=== PATIENT | male | born 1950 | race Caucasian/White ===

== ENCOUNTER 2017-12-06 09:04 | Outpatient (CLI) | payer OTHER, SELFPAY ==
[2017-12-06 11:39] LABS: Hemoglobin A1C 7.2 % (4.5-6.2)
== END 2017-12-06 09:24 ==
PROVIDERS: PCP Family Medicine; Visit Provider Family Medicine
DX: E11.39 Type 2 diabetes mellitus with other diabetic ophthalmic complication (principal)
CPT/HCPCS: 36415; 83036

== ENCOUNTER 2018-01-16 18:23 | Emergency (ER) | payer OTHER, SELFPAY ==
[2018-01-16 18:42] VITALS: BP 172/78; PULSE 63; RESP 12; TEMP 36.9; O2SAT 96
[2018-01-16] MEDS: Acetaminophen 500 MG TAB 1000 MG PO (19:34)
--- NOTE | 2018-01-16 19:45 | DI.RAD_ITS ---
SYMPTOMS/DIAGNOSIS: KNEE PAIN, NO KNOWN INJURY, ? TWISTING INJURY LEFT KNEE: Four views were obtained. There appears to be knee joint effusion. No evidence of acute fracture.
--- NOTE | 2018-01-16 20:09 | DI.VRAD_ITS ---
EXAM: XR Left Knee, 3 Views EXAM DATE/TIME: 01/16/2018 7:20 PM CLINICAL HISTORY: 67 years old, male; Pain; Knee; Left; Patient HX: Left knee pain x1 week. No known injury. Patient ? twisting injury. No surgery TECHNIQUE: XR Left knee 3 views. COMPARISON: No relevant prior studies available. FINDINGS: Bones/joints: Trace suprapatellar effusion. Soft tissues: Grossly unremarkable. Vasculature: Vascular arterial calcifications. IMPRESSION: No fractures or dislocations. Dictated and Authenticated by: Remberto Hernández MD. Ordering:EVANGELINA LYON MD
[2018-01-16 20:46] LABS: D-Dimer 542 ng/mlFEU (<500)
--- NOTE | 2018-01-16 20:58 | W.ED.GENAD ---
Discharge Plan Disposition Patient Disposition: HOME Condition: Stable Discharge Details Chief Complaint: Orthopedic Clinical Impression: Knee pain, left Primary Care Provider: Robert Macias ED Provider: Cholo Troncoso Home Meds and New Rx's Prescriptions: Continue lisinopril 5 mg tablet 5 mg PO DAILY Qty: 90 RF: 4 pantoprazole 40 mg tablet,delayed release (DR/EC) 40 mg PO DAILY Qty: 30 RF: 3 glipizide [Glucotrol] 5 mg tablet 2.5 mg PO TID Qty: 135 RF: 4 pen needle, diabetic 31 gauge x 1/3 needle 1 ea Miscellaneous DAILY Qty: 1 RF: 5 pneumoc 13-augusto conj-dip cr(PF) [Prevnar 13 (PF)] 0.5 mL syringe 0.5 ml IM ONCE Qty: 0.5 RF: 0 lancets 1 EACH misc 1 ea Sub-Q BID Qty: 100 RF: 5 insulin glargine [Lantus Solostar U-100 Insulin] 100 UNIT/1 ML insulin pen 16 unit SQ DAILY Qty: 1 RF: 5 ONETOUCH ULTRA TEST STRIPS 1 EACH strip 1 ea Miscellaneous QID Qty: 200 RF: 4 Discharge Instructions Instructions: Knee Pain (ED), RICE Therapy (ED) Additional Instructions: You may continue to use efuc-fdk-vfxdvoi acetaminophen 500 mg 1-2 tabs every 6-8 hours as needed for pain. You may also utilize arwm-azi-nqkkrgd lidocaine or capsaicin cream just take as directed on packaging. Please rest over the next 3 days then slowly advance activity as tolerated. If not improving over the next week please follow-up with orthopedics for reassessment. Referrals: Flako Dewey MD [ [facility] STAFF PHYSICIAN] - (as needed for follow in 1 week if not improving) Discharge Data Discharge Date/Time-TO BE ENTERED AT DEPARTURE: 01/16/18 21:33 Medical Decision Making Patient presenting to the emergency department with chief complaint of left knee pain. Patient denies any specific injury or trauma but does state that he does bend down on his knees a lot for work and also has been preparing some wood. He does state that 2 or 3 days ago he applied an Silvestre wrap and took some Motrin which seemed to help with his discomfort. He states that pain is diffusely throughout the knee but more specific or intense to the posterior knee with some radiation up into the thigh. Physical exam shows somewhat diffuse tenderness throughout the leg with more specific tenderness to the posterior fossa and some tenderness to the proximal to mid upper thigh on the medial aspect. Otherwise no specific findings are noted. Suspect more arthritic type nature but given radiation of pain up into the thigh plan to check d-dimer given low suspicion of DVT and also plan to check x-ray imaging. Pending results patient given acetaminophen. Review of x-ray shows no acute fracture dislocation does reveal small amount of effusion. D-dimer is appropriate for age adjustment and given low suspicion of DVT and more musculoskeletal concern do not feel that any further testing is warranted. Patient given hinged knee brace and was able to ambulate through the department and states greater stability on the knee. Patient was encouraged to continue to use dlxx-fae-elxlitg acetaminophen for pain control and if not improving after resting the extremity over the next couple weeks to follow-up with orthopedist for reassessment and further treatment as needed. Patient clearly states understanding to return for any new or worsening conditions. After discussion of diagnosis and plan of care patient has no further needs, questions, or concerns and states clear understanding to return to the emergency department for any worsening symptoms. HPI General Mode of arrival: ambulatory. Date/Time Provider Initiated Documentation: 01/16/18 18:48. Limitations to Documentation: no limitations. Information obtained by: patient, family and RN notes reviewed. History of Present Illness 67 year old M presents to the emergency department with the chief complaint of Left knee pain , described as severe, with intensity rated at 8. Quality is described as aching and sharp, and is localized to the left and lower extremity. Patient proximal. Patient started experiencing this week(s) (1) and it has been constant. Rest improves symptom(s), Movement worsens symptoms . Patient notes no other symptoms.. Patient did receive the following treatments prior to arrival, NSAID Related Data Home Medications Medication Instructions Recorded Confirmed lancets #100 ea 06/11/13 01/16/18 insulin glargine [Lantus Solostar 16 unit SQ DAILY #1 box 05/27/17 01/16/18 U-100 Insulin] glipizide 5 mg tablet 2.5 mg PO TID #135 tab 12/06/17 01/16/18 lisinopril 5 mg tablet 5 mg PO DAILY #90 tab-cap 12/06/17 01/16/18 pantoprazole 40 mg tablet,delayed 40 mg PO DAILY #30 tab 12/06/17 01/16/18 release pen needle, diabetic 31 gauge x #1 box 12/06/17 01/16/18 1/3 pneumococcal 13-augusto conj 0.5 ml IM ONCE #0.5 ml 12/06/17 12/06/17 vaccine-dip crm (PF) 0.5 mL IM syringe Previous Rx's Medication Instructions Recorded insulin glargine [Lantus Solostar 16 unit SQ DAILY #1 box 05/27/17 U-100 Insulin] glipizide 5 mg tablet 2.5 mg PO TID #135 tab 12/06/17 lisinopril 5 mg tablet 5 mg PO DAILY #90 tab-cap 12/06/17 pantoprazole 40 mg tablet,delayed 40 mg PO DAILY #30 tab 12/06/17 release pen needle, diabetic 31 gauge x #1 box 12/06/17 13 pneumococcal 13-augusto conj 0.5 ml IM ONCE #0.5 ml 12/06/17 vaccine-dip crm (PF) 0.5 mL IM syringe Allergies Allergy/AdvReac Type Severity Reaction Status Date / Time Ueircnk-Tmt-Lsu Reductase AdvReac Severe myalgias Unverified 01/16/18 18:46 Inhibitor General Stated Complaint: Orthopedic APRIL: 5 Review of Systems Constitutional Denies chills, Denies fever(s) and Denies headache(s) ENT Denies headache(s) Cardiovascular Denies chest pain, Denies irregular heart rhythm, Denies leg edema, Denies lightheadedness and Denies dyspnea Respiratory Denies dyspnea Gastrointestinal Denies abdominal pain Musculoskeletal Reports as per HPI, Reports myalgias and Reports arthralgias Neurologic Reports confusion and Denies headache(s) Psychiatric Reports confusion PFSH Family History Mother RA (rheumatoid arthritis) CHF (congestive heart failure) Depression Heart disease Father Alcohol abuse Psoriasis Brother Diabetes Alcohol abuse Hyperlipidemia Myocardial infarction Neoplasm Extraction of cataract PROCEDURES Family History Mother RA (rheumatoid arthritis) CHF (congestive heart failure) Depression Heart disease Father Alcohol abuse Psoriasis Brother Diabetes Alcohol abuse Hyperlipidemia Myocardial infarction Neoplasm Social History current occupational status: employed 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 pets and animals: No frequency: 1-2 times per week duration: < 15 minutes/day Smoking/Tobacco Use Status: Never alcohol intake: current alcohol intake frequency: a few times a week substance use type: does not use demetrice/latter-day: Latter Day special demetrice needs: No Surgical History Extraction of cataract PROCEDURES Social History current occupational status: employed 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 [employer] pets and animals: No frequency: 1-2 times per week duration: < 15 minutes/day Smoking/Tobacco Use Status: Never alcohol intake: current alcohol intake frequency: a few times a week substance use type: does not use demetrice/latter-day: Latter Day special demetrice needs: No Exam Const General: cooperative, healthy appearing, comfortable and no acute distress Orientation: alert, awake and oriented x3 Resp Effort & Inspection: normal respiratory effort and able to speak in complete sentences Auscultation: clear to auscultation bilaterally Cardio Rate: regular rate Rhythm: regular rhythm Heart Sounds: S1 normal and S2 normal Pulses: normal peripheral pulses Neuro General: alert, awake, oriented x3, moves all extremities and no focal motor deficits Extrem Left lower extremity: hip/thigh Details: tenderness Location: of the mid upper leg Location: posteriorly and normal ROM and knee Details: tenderness Location: of the popliteal fossa and of the medial joint line, swelling Location: of the pre-patellar area, abnormal ROM Details: pain with active ROM and knee ligament exam abnormal Details: valgus stress test Details: pain noted and varus stress test Details: pain noted Course Vital Signs Temperature 36.9 C 01/16/18 18:42 Pulse 63 01/16/18 18:42 Respiratory Rate 12 01/16/18 18:42 Blood Pressure 172/78 H 01/16/18 18:42 Pulse Oximetry 96 01/16/18 18:42 Temperature 36.9 C 01/16/18 18:42 Temperature Source Temporal Artery Scan 01/16/18 18:42 Pulse 63 01/16/18 18:42 Respiratory Rate 12 01/16/18 18:42 Respiratory Effort Non-Labored 01/16/18 18:44 Blood Pressure 172/78 H 01/16/18 18:42 Blood Pressure Position Sitting 01/16/18 18:42 Pulse Oximetry 96 01/16/18 18:42 Oxygen Delivery Method Room Air 01/16/18 18:42 Oxygen Flow Rate 0 01/16/18 18:42 Pain Level 9 01/16/18 18:42 Lab/Test Results Lab/Test Results: Laboratory Tests Range/Units 01/16/18 20:00 D-Dimer (<500) ng/mlFEU 542 H
--- NOTE | 2018-01-16 21:02 | ED.GENADUL_ITS ---
Discharge Plan Disposition Patient Disposition: HOME Condition: Stable Discharge Details Chief Complaint: Orthopedic Clinical Impression: Knee pain, left Primary Care Provider: Robert Macias ED Provider: Cholo Troncoso Home Meds and New Rx's Prescriptions: Continue lisinopril 5 mg tablet 5 mg PO DAILY Qty: 90 RF: 4 pantoprazole 40 mg tablet,delayed release (DR/EC) 40 mg PO DAILY Qty: 30 RF: 3 glipizide [Glucotrol] 5 mg tablet 2.5 mg PO TID Qty: 135 RF: 4 pen needle, diabetic 31 gauge x 1/3 needle 1 ea Miscellaneous DAILY Qty: 1 RF: 5 pneumoc 13-augusto conj-dip cr(PF) [Prevnar 13 (PF)] 0.5 mL syringe 0.5 ml IM ONCE Qty: 0.5 RF: 0 lancets 1 EACH misc 1 ea Sub-Q BID Qty: 100 RF: 5 insulin glargine [Lantus Solostar U-100 Insulin] 100 UNIT/1 ML insulin pen 16 unit SQ DAILY Qty: 1 RF: 5 ONETOUCH ULTRA TEST STRIPS 1 EACH strip 1 ea Miscellaneous QID Qty: 200 RF: 4 Discharge Instructions Instructions: Knee Pain (ED), RICE Therapy (ED) Additional Instructions: You may continue to use epim-cbg-bsvaqyi acetaminophen 500 mg 1-2 tabs every 6- 8 hours as needed for pain. You may also utilize uvkq-cbi-twkccsm lidocaine or capsaicin cream just take as directed on packaging. Please rest over the next 3 days then slowly advance activity as tolerated. If not improving over the next week please follow-up with orthopedics for reassessment. Referrals: Flako Dewey MD [ [facility] STAFF PHYSICIAN] - (as needed for follow in 1 week if not improving) Discharge Data Discharge Date/Time-TO BE ENTERED AT DEPARTURE: 01/16/18 21:33 Medical Decision Making Patient presenting to the emergency department with chief complaint of left knee pain. Patient denies any specific injury or trauma but does state that he does bend down on his knees a lot for work and also has been preparing some wood. He does state that 2 or 3 days ago he applied an Silvestre wrap and took some Motrin which seemed to help with his discomfort. He states that pain is diffusely throughout the knee but more specific or intense to the posterior knee with some radiation up into the thigh. Physical exam shows somewhat diffuse tenderness throughout the leg with more specific tenderness to the posterior fossa and some tenderness to the proximal to mid upper thigh on the medial aspect. Otherwise no specific findings are noted. Suspect more arthritic type nature but given radiation of pain up into the thigh plan to check d-dimer given low suspicion of DVT and also plan to check x-ray imaging. Pending results patient given acetaminophen. Review of x-ray shows no acute fracture dislocation does reveal small amount of effusion. D-dimer is appropriate for age adjustment and given low suspicion of DVT and more musculoskeletal concern do not feel that any further testing is warranted. Patient given hinged knee brace and was able to ambulate through the department and states greater stability on the knee. Patient was encouraged to continue to use gmyl-iev-gdalmqp acetaminophen for pain control and if not improving after resting the extremity over the next couple weeks to follow-up with orthopedist for reassessment and further treatment as needed. Patient clearly states understanding to return for any new or worsening conditions. After discussion of diagnosis and plan of care patient has no further needs, questions, or concerns and states clear understanding to return to the emergency department for any worsening symptoms. HPI General Mode of arrival: ambulatory . Date/Time Provider Initiated Documentation: 01/16/18 18:48 . Limitations to Documentation: no limitations . Information obtained by: patient, family and RN notes reviewed . History of Present Illness 67 year old M presents to the emergency department with the chief complaint of Left knee pain , described as severe, with intensity rated at 8. Quality is described as aching and sharp, and is localized to the left and lower extremity. Patient proximal. Patient started experiencing this week(s) (1) and it has been constant. Rest improves symptom(s), Movement worsens symptoms . Patient notes no other symptoms.. Patient did receive the following treatments prior to arrival, NSAID Related Data Home Medications Medication Instructions Recorded Confirmed lancets #100 ea 06/11/13 01/16/18 insulin glargine [Lantus Solostar 16 unit SQ DAILY #1 box 05/27/17 01/16/18 U-100 Insulin] glipizide 5 mg tablet 2.5 mg PO TID #135 tab 12/06/17 01/16/18 lisinopril 5 mg tablet 5 mg PO DAILY #90 tab-cap 12/06/17 01/16/18 pantoprazole 40 mg tablet,delayed 40 mg PO DAILY #30 tab 12/06/17 01/16/18 release pen needle, diabetic 31 gauge x #1 box 12/06/17 01/16/18 1/3 pneumococcal 13-augusto conj 0.5 ml IM ONCE #0.5 ml 12/06/17 12/06/17 vaccine-dip crm (PF) 0.5 mL IM syringe Previous Rx's Medication Instructions Recorded insulin glargine [Lantus Solostar 16 unit SQ DAILY #1 box 05/27/17 U-100 Insulin] glipizide 5 mg tablet 2.5 mg PO TID #135 tab 12/06/17 lisinopril 5 mg tablet 5 mg PO DAILY #90 tab-cap 12/06/17 pantoprazole 40 mg tablet,delayed 40 mg PO DAILY #30 tab 12/06/17 release pen needle, diabetic 31 gauge x #1 box 12/06/17 13 pneumococcal 13-augusto conj 0.5 ml IM ONCE #0.5 ml 12/06/17 vaccine-dip crm (PF) 0.5 mL IM syringe Allergies Allergy/AdvReac Type Severity Reaction Status Date / Time Phwnxuj-Lwx-Lia Reductase AdvReac Severe myalgias Unverified 01/16/18 18:46 Inhibitor General Stated Complaint: Orthopedic APRIL: 5 Review of Systems Constitutional Denies chills, Denies fever(s) and Denies headache(s) ENT Denies headache(s) Cardiovascular Denies chest pain, Denies irregular heart rhythm, Denies leg edema, Denies lightheadedness and Denies dyspnea Respiratory Denies dyspnea Gastrointestinal Denies abdominal pain Musculoskeletal Reports as per HPI, Reports myalgias and Reports arthralgias Neurologic Reports confusion and Denies headache(s) Psychiatric Reports confusion PFSH Family History Mother RA (rheumatoid arthritis) CHF (congestive heart failure) Depression Heart disease Father Alcohol abuse Psoriasis Brother Diabetes Alcohol abuse Hyperlipidemia Myocardial infarction Neoplasm Extraction of cataract PROCEDURES Family History Mother RA (rheumatoid arthritis) CHF (congestive heart failure) Depression Heart disease Father Alcohol abuse Psoriasis Brother Diabetes Alcohol abuse Hyperlipidemia Myocardial infarction Neoplasm Social History current occupational status: employed 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 pets and animals: No frequency: 1-2 times per week duration: < 15 minutes/day Smoking/Tobacco Use Status: Never alcohol intake: current alcohol intake frequency: a few times a week substance use type: does not use demetrice/spiritism: Religion special demetrice needs: No Surgical History Extraction of cataract PROCEDURES Social History current occupational status: employed 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 pets and animals: No frequency: 1-2 times per week duration: < 15 minutes/day Smoking/Tobacco Use Status: Never alcohol intake: current alcohol intake frequency: a few times a week substance use type: does not use demetrice/spiritism: Religion special demetrice needs: No Exam Const General: cooperative, healthy appearing, comfortable and no acute distress Orientation: alert, awake and oriented x3 Resp Effort & Inspection: normal respiratory effort and able to speak in complete sentences Auscultation: clear to auscultation bilaterally Cardio Rate: regular rate Rhythm: regular rhythm Heart Sounds: S1 normal and S2 normal Pulses: normal peripheral pulses Neuro General: alert, awake, oriented x3, moves all extremities and no focal motor deficits Extrem Left lower extremity: hip/thigh Details: tenderness Location: of the mid upper leg Location: posteriorly and normal ROM and knee Details: tenderness Location: of the popliteal fossa and of the medial joint line, swelling Location: of the pre-patellar area, abnormal ROM Details: pain with active ROM and knee ligament exam abnormal Details: valgus stress test Details: pain noted and varus stress test Details: pain noted Course Vital Signs Temperature 36.9 C 01/16/18 18:42 Pulse 63 01/16/18 18:42 Respiratory Rate 12 01/16/18 18:42 Blood Pressure 172/78 H 01/16/18 18:42 Pulse Oximetry 96 01/16/18 18:42 Temperature 36.9 C 01/16/18 18:42 Temperature Source Temporal Artery Scan 01/16/18 18:42 Pulse 63 01/16/18 18:42 Respiratory Rate 12 01/16/18 18:42 Respiratory Effort Non-Labored 01/16/18 18:44 Blood Pressure 172/78 H 01/16/18 18:42 Blood Pressure Position Sitting 01/16/18 18:42 Pulse Oximetry 96 01/16/18 18:42 Oxygen Delivery Method Room Air 01/16/18 18:42 Oxygen Flow Rate 0 01/16/18 18:42 Pain Level 9 01/16/18 18:42 Lab/Test Results Lab/Test Results: Laboratory Tests Range/Units 01/16/18 20:00 D-Dimer (<500) ng/mlFEU 542 H
[2018-01-16 22:41] VITALS: BP 172/78; PULSE 63; RESP 12; TEMP 36.9; O2SAT 96
== END 2018-01-16 21:33 | disposition home or self-care (01) ==
PROVIDERS: Emergency Provider Nurse Practitioner Family; PCP Family Medicine
DX: M25.562 Pain in left knee (principal); E11.9 Type 2 diabetes mellitus without complications; Z79.4 Long term (current) use of insulin
CPT/HCPCS: 36415; 73562; 99284; 85379; 99282; L1820

== ENCOUNTER → 2018-01-22 09:09 | Outpatient (BNVA) | payer OTHER, SELFPAY | PROVIDERS: PCP Family Medicine; Referring Provider Family Medicine; Visit Provider Student in an Organized Health Care Education/Training Program | DX: M10.9 Gout, unspecified (principal); M25.562 Pain in left knee | CPT/HCPCS: 20610; 99204; 99214; J1040 ==

== ENCOUNTER 2018-01-22 11:49 | Outpatient (REF) | payer OTHER, SELFPAY ==
[2018-01-22 12:39] LABS: Source L KNEE
[2018-01-22 12:40] LABS: Clarity CLOUDY; Mononuclear Cells 19 % (0-0); Polynuclear Cells 81 % (0-0)
[2018-01-22 12:42] LABS: Nucleated Cells 7372 /MM3 (0-0)
== END 2018-01-22 12:09 ==
LOC: LBN 11:49
PROVIDERS: PCP Family Medicine; Visit Provider Physician Assistant
DX: M25.462 Effusion, left knee (principal)
CPT/HCPCS: 87070; 87205; 89051; 89060

== ENCOUNTER 2018-06-10 08:54 | Outpatient (CLI) | payer OTHER, SELFPAY ==
[2018-06-10 11:57] LABS: BUN 17 mg/dL (7-18); CREATININE 1.79 mg/dL (0.70-1.30); Calcium 10.2 mg/dL (8.5-10.1); Chloride 100 mmol/L (98-107); Estimated GFR 38.07 (mL/min/1.73m2); Glucose 183 mg/dL (70-100); Potassium 4.3 mmol/L (3.5-5.1); Sodium 138 mmol/L (136-145)
[2018-06-10 12:39] LABS: Hemoglobin A1C 6.9 % (4.5-6.2)
== END 2018-06-10 09:14 ==
PROVIDERS: PCP Family Medicine; Visit Provider Family Medicine
DX: I10 Essential (primary) hypertension (principal); E11.39 Type 2 diabetes mellitus with other diabetic ophthalmic complication
CPT/HCPCS: 36415; 80048; 83036

== ENCOUNTER 2018-08-05 01:53 | Outpatient (CLI) | payer OTHER, SELFPAY ==
[2018-08-05 12:13] LABS: Hemoglobin A1C 7.1 % (4.5-6.2)
== END 2018-08-05 02:13 ==
PROVIDERS: PCP Family Medicine; Visit Provider Family Medicine
DX: E11.39 Type 2 diabetes mellitus with other diabetic ophthalmic complication (principal)
CPT/HCPCS: 36415; 83036

== ENCOUNTER 2019-03-10 01:05 | Outpatient (CLI) | payer OTHER, SELFPAY ==
--- NOTE | 2019-03-10 15:35 | DI.US_ITS ---
EXAM: US CAROTID CLINICAL HISTORY: Sudden weakness left ,G45.9, TIA TECHNIQUE: Ultrasound performed using standard protocol. COMPARISON: CAROTID ULTRASOUND from 09/20/2014 FINDINGS: Right: There is mild calcific plaque seen in the right carotid bulb and the proximal right internal carotid artery. No hemodynamically significant velocity elevations are present. The right vertebral artery is antegrade. Left: No significant calcific plaque is seen. No hemodynamically significant velocity elevations are prese nt. Left vertebral artery is antegrade. IMPRESSION: No hemodynamically significant cervical carotid artery stenosis.
== END 2019-03-10 01:25 ==
PROVIDERS: PCP Family Medicine; Visit Provider Family Medicine
DX: G45.9 Transient cerebral ischemic attack, unspecified (principal)
CPT/HCPCS: 93880

== ENCOUNTER 2019-03-19 01:24 | Outpatient (CLI) | payer OTHER, SELFPAY ==
--- NOTE | 2019-03-19 15:16 | DI.CT_ITS ---
EXAM: CT HEAD WO CLINICAL HISTORY: Sudden onset weakness left leg R29.898 TECHNIQUE: COMPARISON: No exams were available for comparison FINDINGS: Noncontrast cranial CT was performed. There is mild generalized cerebral atrophy and there are mild patchy areas of decreased attenuation in periventricular white matter consistent with microvascular i schemic change. 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 No evidence of acute intracrani al hemorrhage, mass effect, or midline shift. The orbital and temporal bone structures appear intact. Visualized paranasal sinuses and mastoid air cells are clear. IMPRESSION: No evidence of acute intracranial process.
== END 2019-03-19 01:44 ==
PROVIDERS: PCP Family Medicine; Visit Provider Family Medicine
DX: R29.898 Other symptoms and signs involving the musculoskeletal system (principal); G31.89 Other specified degenerative diseases of nervous system
CPT/HCPCS: 70450

== ENCOUNTER → 2019-06-16 09:25 | Outpatient (BNVA) | payer OTHER, SELFPAY | PROVIDERS: PCP Family Medicine; Referring Provider Family Medicine; Visit Provider Psychiatry & Neurology Neurology | DX: I63.9 Cerebral infarction, unspecified (principal); R26.89 Other abnormalities of gait and mobility; I10 Essential (primary) hypertension; E11.311 Type 2 diabetes mellitus with unspecified diabetic retinopathy with macular edema; Z79.4 Long term (current) use of insulin | CPT/HCPCS: 99204; 99443 ==

== ENCOUNTER 2019-08-24 02:25 | Outpatient (CLI) | payer OTHER, SELFPAY ==
[2019-08-24 12:57] LABS: Anion Gap 7.6 mmol/L (3-11); BUN 28 mg/dL (7-18); CO2 27.4 mmol/L (21.0-32.0); CREATININE 2.65 mg/dL (0.70-1.30); Calcium 10.4 mg/dL (8.5-10.1); Calculated LDL 159 mg/dL (<100); Chloride 103 mmol/L (98-107); Cholesterol 250 mg/dL (<200); Estimated GFR 24.13 (mL/min/1.73m2); Glucose 238 mg/dL (74-106); HDL Cholesterol 37 mg/dL (40-60); Potassium 4.8 mmol/L (3.5-5.1); Sodium 138 mmol/L (136-145); Triglyceride 274 mg/dL (<150)
== END 2019-08-24 02:45 ==
PROVIDERS: PCP Family Medicine; Visit Provider Family Medicine
DX: E11.3213 Type 2 diabetes mellitus with mild nonproliferative diabetic retinopathy with macular edema, bilateral (principal); I10 Essential (primary) hypertension; Z79.4 Long term (current) use of insulin; R68.89 Other general symptoms and signs
CPT/HCPCS: 36415; 80048; 80061; 83036; 84443

== ENCOUNTER 2019-10-30 03:48 | Outpatient (CLI) | payer OTHER, SELFPAY ==
[2019-10-30 12:06] LABS: Abs Immature Grans 0.26 10^3/uL (0.0-0.06); Absolute Basophil Count 0.03 10^3/uL (0.0-0.2); Absolute Eosinophil Count 0.02 10^3/uL (0.0-0.7); Absolute Lymphocyte Count 2.47 10^3/uL (1.2-3.4); Basophils % 0.3; Eosinophils % 0.2; HCT 37.3 % (40.0-50.0); HGB 12.8 g/dL (13.5-17.5); Immature Grans % 2.4; Lymphocytes % 22.6; MCH 31.2 pg (27.0-33.0); MCHC 34.3 % (32.0-36.0); MPV 9.5 fL (8.0-11.0); Monocytes % 7.9; Neutrophils % 66.6; Nucleated RBC 0 %; Platelet Count 207 10^3/uL (130-400); RDW 13.9 % (11.8-14.1); RDW-SD 46.5 fL; WBC 10.95 10^3/uL (4.4-10.8)
[2019-10-30 12:07] LABS: Absolute Monocyte Count 0.87 10^3/uL (0.1-0.8); Absolute Neutrophil Count 7.29 10^3/uL (1.2-6.7)
[2019-10-30 12:29] LABS: Hemoglobin A1C 7.5 % (<5.7)
[2019-10-30 12:41] LABS: COMMENT (LAB VIEW ONLY) 111.29 mg/dL; Microalb ug/mg Crea 8.4 ug/mg Cr
[2019-10-30 12:51] LABS: ALT 35 U/L (16-63); AST 14 U/L (15-37); Albumin 3.7 g/dL (3.4-5.0); Alkaline Phosphatase 72 U/L (46-116); Anion Gap 4.2 mmol/L (3-11); BUN 38 mg/dL (7-18); Bilirubin, Total 0.4 mg/dL (0.2-1.0); CO2 27.8 mmol/L (21.0-32.0); CREATININE 2.46 mg/dL (0.70-1.30); Calcium 9.1 mg/dL (8.5-10.1); Calculated LDL 125 mg/dL (<100); Chloride 105 mmol/L (98-107); Cholesterol 227 mg/dL (<200); Glucose 179 mg/dL (74-106); HDL Cholesterol 42 mg/dL (40-60); Potassium 5.2 mmol/L (3.5-5.1); Sodium 137 mmol/L (136-145); Total Protein 7.5 g/dL (6.4-8.2); Triglyceride 303 mg/dL (<150)
[2019-10-30 13:03] LABS: Uric Acid 7.2 mg/dL (3.5-7.2)
[2019-11-02 12:26] LABS: Albumin 56.8 % (55.8-66.1); Total Protein 7.2 g/dL (6.3-8.2)
[2019-11-02 12:39] LABS: Parathyroid Hormone,Intact 40 pg/mL (19-88)
== END 2019-10-30 04:08 ==
PROVIDERS: PCP Family Medicine; Visit Provider Internal Medicine Nephrology
DX: E11.9 Type 2 diabetes mellitus without complications (principal); N18.4 Chronic kidney disease, stage 4 (severe); Z79.4 Long term (current) use of insulin; I25.10 Atherosclerotic heart disease of native coronary artery without angina pectoris
CPT/HCPCS: 36415; 80053; 80061; 82043; 82570; 83036; 83970; 84100; 84165; 84550; 85025

== ENCOUNTER 2019-10-30 04:03 | Outpatient (CLI) | payer OTHER, SELFPAY ==
--- NOTE | 2019-10-30 | DI.US_ITS ---
EXAM: US RENAL CLINICAL HISTORY: STAGE 3 KIDNEY DISEASE,N18.3. TECHNIQUE: Cheng scale, color and spectral Doppler were used. COMPARISON: CT ABD PELVIS WITH CONTRAST from 09/11/2011 FINDINGS: Renal size in cm: Right: left: 11.0 11.6 Echogenicity: Normal Hydronephrosis: No Cyst or mass: No Nephrolithiasis: No Other findings: None Bladder:Not adequately distended. Prevoid vol:24 Postvoid vol: 19 Prostate: Not well seen The ureteral jets were not visualized. IMPRESSION: The kidneys are unremarkable. There is no evidence of hydronephrosis. The bladder was not well eval uated due to inadequate filling. DATA REPOSITORY:
== END 2019-10-30 04:23 ==
PROVIDERS: PCP Family Medicine; Visit Provider Internal Medicine Nephrology
DX: N18.3 Chronic kidney disease, stage 3 (moderate) (principal)
CPT/HCPCS: 76770

== ENCOUNTER 2020-04-11 01:44 | Outpatient (CLI) | payer MEDICARE, SELFPAY ==
--- NOTE | 2020-04-11 06:30 | DI.RAD_ITS ---
EXAM: RF BARIUM SWALLOW CLINICAL HISTORY: dysphagia - see previous barium swallow,R13.10 TECHNIQUE: 2D and realtime digital imaging was performed. CONTRAST MATERIAL: Oral barium Oral water soluble contrast was administered. COMPARISON: CR,RF BARIUM SWALLOW W PA LAT CXR from 02/13/2013 FINDINGS: ESOPHAGRAM: Esophagus was performed both standing and recumbent REGALADO. There was no aspiration. No Zenker's diverticulum. No fixed lesion in the esophagus nor achalasia. There was a Schatzki ring demonstrated in the lower esophagus, only seen on the 2nd part of this margy dy which was performed with the patient recumbent in REGALADO position. In addition, when we administered a radiopaque barium pill it quickly passed down the esophagus but was large for significant time at the GE junction prior to finally passing into the stomach approximately 30 minutes later. There is n o large hiatal hernia evident. No obvious reflux demonstrated during this study. IMPRESSION: Schatzki ring is demonstrated in the lower esophagus and there was also demonstrated lodging of the a dministered radiopaque barium pill at this level in the distal esophagus for approximately 30 minutes prior to pressing into the stomach. Recommend follow-up endoscopy to ensure that there is no malign ant stricture at this level.
[2020-04-11] MEDS: Simethicone/Sod Bicarb/Cit Ac, 4 gram PACKET 1 PACKET PO ×3 (11:15→11:17)
[2020-04-11] MEDS: Barium Sulfate 700 MG TAB PO (11:16)
== END 2020-04-11 01:45 ==
PROVIDERS: PCP Family Medicine; Visit Provider Family Medicine
DX: R13.10 Dysphagia, unspecified (principal); K22.8 Other specified diseases of esophagus
CPT/HCPCS: 74221

== ENCOUNTER → 2020-04-26 12:22 | Outpatient (BNVA) | payer MEDICARE, SELFPAY | PROVIDERS: PCP Family Medicine; Referring Provider Family Medicine; Visit Provider Surgery | DX: R13.10 Dysphagia, unspecified (principal) | CPT/HCPCS: 99203; 99215 ==

== ENCOUNTER 2020-06-30 02:06 | Outpatient (CLI) | payer MEDICARE, SELFPAY ==
[2020-06-30 13:01] LABS: ALT 25 U/L (16-63); AST 16 U/L (15-37); Albumin 3.7 g/dL (3.4-5.0); Alkaline Phosphatase 73 U/L (46-116); Anion Gap 7.8 mmol/L (3-11); BUN 31 mg/dL (7-18); Bilirubin, Total 0.4 mg/dL (0.2-1.0); CO2 28.2 mmol/L (21.0-32.0); CREATININE 2.6 mg/dL (0.70-1.30); Calcium 9.2 mg/dL (8.5-10.1); Chloride 104 mmol/L (98-107); Glucose 207 mg/dL (74-106); Potassium 4.8 mmol/L (3.5-5.1); Sodium 140 mmol/L (136-145); Total Protein 7.1 g/dL (6.4-8.2)
[2020-06-30 22:10] LABS: PSA, Diagnostic 0.9 ng/mL (0.0-4.5)
== END 2020-06-30 02:07 | disposition home or self-care (01) ==
PROVIDERS: PCP Family Medicine; Visit Provider Family Medicine
DX: E11.9 Type 2 diabetes mellitus without complications (principal); Z79.4 Long term (current) use of insulin; N18.30 Chronic kidney disease, stage 3 unspecified; N40.0 Benign prostatic hyperplasia without lower urinary tract symptoms
CPT/HCPCS: 36415; 80053; 83036; 84153

== ENCOUNTER 2020-10-12 02:35 | Outpatient (CLI) | payer MEDICARE, SELFPAY ==
[2020-10-12 12:41] LABS: HCT 36.5 % (40.0-50.0); HGB 12.1 g/dL (13.5-17.5); MCH 29.4 pg (27.0-33.0); MCHC 33.2 % (32.0-36.0); MCV 88.6 fL (80-95); MPV 10.3 fL (8.0-11.0); Platelet Count 201 10^3/uL (130-400); RBC 4.12 10^6/uL (4.36-5.78); RDW 13.2 % (11.8-14.1); RDW-SD 42.7 fL; WBC 8.39 10^3/uL (4.4-10.8)
[2020-10-12 13:07] LABS: ALT 25 U/L (16-63); AST 16 U/L (15-37); Albumin 3.7 g/dL (3.4-5.0); Alkaline Phosphatase 73 U/L (46-116); BUN 27 mg/dL (7-18); Bilirubin, Total 0.3 mg/dL (0.2-1.0); CREATININE 2.8 mg/dL (0.70-1.30); Calcium 10.7 mg/dL (8.5-10.1); Chloride 104 mmol/L (98-107); Estimated GFR 22.58 (mL/min/1.73m2); Glucose 153 mg/dL (74-106); Potassium 4.4 mmol/L (3.5-5.1); Sodium 141 mmol/L (136-145); TSH (W/Ref FT4) 2.24 uIU/mL (0.36-3.74); Total Protein 7.4 g/dL (6.4-8.2)
[2020-10-12 13:23] LABS: Hemoglobin A1C 7.3 % (<5.7)
[2020-10-12 13:29] LABS: COMMENT (LAB VIEW ONLY) 62.13 mg/dL; Microalb ug/mg Crea 29.1 ug/mg Cr
[2020-10-18 17:01] LABS: Testosterone, Free 9.88 ng/dL (3.47-13.0); Testosterone, Total 241 ng/dL (240-950)
[2020-10-21 15:27] LABS: PTH AB NEGATIVE (NEGATIVE)
== END 2020-10-12 02:36 | disposition home or self-care (01) ==
LOC: LOS 02:35
PROVIDERS: PCP Family Medicine; Visit Provider Family Medicine
DX: I10 Essential (primary) hypertension (principal); N18.30 Chronic kidney disease, stage 3 unspecified; R53.83 Other fatigue; E11.9 Type 2 diabetes mellitus without complications; Z79.4 Long term (current) use of insulin; E83.52 Hypercalcemia
CPT/HCPCS: 36415; 80053; 83519; 84402; 84403; 85027; 82043; 82570; 83036; 84443

== ENCOUNTER 2020-11-23 10:30 | Inpatient (IN) | payer MEDICARE, SELFPAY ==
[2020-11-23] VITALS (8 sets, daily range): BP systolic 127–168; BP diastolic 66–97; PULSE 60–78; RESP 14–22; TEMP 36.4–37; O2SAT 94–98
--- NOTE | 2020-11-23 10:15 | DI.CT_ITS ---
Exam(s) CT HEAD WO EXAM: CT HEAD WO CLINICAL HISTORY: R sided weakness. TECHNIQUE: Imaging Protocol: Axial computed tomography images with coronal and sagittal reformatted images were created and reviewed COMPARISON: CT CT HEAD WO from 03/19/2019 FINDINGS: Ventricles and Extra axial spaces: Normal in size and morphology for the patient's age. Hemorrhage: None. Cerebral parenchyma: No acute territorial infarct. There are areas of decreased attenuation in the w blayne matter consistent with small vessel ischemic disease. 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 Midline shift: None. Brainstem/Cerebellum: Normal. Calvarium: Normal. Visualized Paranasal sinuses/Mastoids: Clear. Soft Tissues: Unremarkable. IMPRESSION: 1. No acute intracranial process. 2. Results of this exam have been verbally communicated with provider. RADIATION DOSE DELIVERED: 723.66mGy.cm Total DLP DATA REPOSITORY: All CT scans at this facility are submitted to the National Radiology Data Registry (NRDR) Dose Index Registry (DIR) with the [employer] ([employer]). RADIATION OPTIMIZATION: All CT scans at this facility use at least one of these dose optimization te chniques: automated exposure control; mA and/or kV adjustment per patient size (includes targeted exa ms where dose is matched to clinical indication); or iterative reconstruction.
--- NOTE | 2020-11-23 10:15 | RT.EKG_ITS ---
APPROVED REPORT Exam: Resting ECG Reason for Exam: weakness Patient Location: E HR:61 bpm ECG Measurements Heart Rate 61 AXIS CO 181 P 39 QRSd 78 QRS 6 QT 385 T 1 QTc 387 Conclusion Sinus rhythm Nonspecific ST changes
--- NOTE | 2020-11-23 10:15 | DI.RAD_ITS ---
Exam(s) XR CHEST 1V IN DI DEPT EXAM: XR CHEST 1V IN DI DEPT CLINICAL HISTORY: R weakness TECHNIQUE: 2D digital imaging was performed of the chest. One image was obtained. An AP view was ob tained. COMPARISON: CR,RF RF BARIUM SWALLOW from 04/11/2020 CR,RF RF BARIUM SWALLOW from 04/11/2020 FINDINGS: MEDIASTINUM: Normal. HEART: Normal. PULMONARY VASCULATURE: Normal. LUNGS: Clear. PLEURAL SPACE: No pleural effusion or pneumothorax. BONE:Within normal limits for the patient's age. OTHER FINDINGS:Normal. IMPRESSION: No acute pulmonary findings. DATA REPOSITORY: RADIATION DOSE DELIVERED:
--- NOTE | 2020-11-23 10:41 | W.ED.GENAD ---
Discharge Plan Disposition Patient Disposition: [facility] INPATIENT Condition: Stable Discharge Details Clinical Impression: Acute CVA (cerebrovascular accident), Chronic renal insufficiency, stage III (moderate) Primary Care Provider: Shelli Blackmon ED Provider: Charly Snider Home Meds and New Rx's Prescriptions: No Action amlodipine 5 mg tablet 5 mg PO DAILY Qty: 90 RF: 6 famotidine [Pepcid AC] 20 mg tablet 20 mg PO DAILY PRNRF: 0 calcium carbonate [Tums] 200 mg calcium (500 mg) tablet,chewable 200 mg PO BID PRNRF: 0 (DME) lancing device [Droplet Genteel Lancing Device] Misc See Rx Instructions .ROUTE .MEDSUPPLY Qty: 1 RF: 0 lidocaine 4 % gel 1 applic TP BID PRN (Reason: pain) Qty: 113 RF: 1 allopurinol 300 mg tablet 150 mg PO DAILY Qty: 90 RF: 4 glipizide [Glucotrol] 5 mg tablet 2.5 mg PO TID Qty: 135 RF: 4 Lantus Solostar U-100 Insulin 100 unit/mL (3 mL) insulin pen 16 unit subcut DAILY Qty: 1 RF: 5 (DME) lancets 28 gauge misc 1 ea Sub-Q BID Qty: 100 RF: 4 (DME) pen needle, diabetic 31 gauge x 1/3 needle 1 ea Miscellaneous DAILY Qty: 100 RF: 5 (DME) OneTouch Ultra Blue Test Strip Strip See Dose Instructions .ROUTE .MEDSUPPLY Qty: 100 RF: 4 (DME) blood-glucose meter Misc See Rx Instructions .ROUTE .MEDSUPPLY Qty: 1 RF: 0 Medical Decision Making 70-year-old male with insulin-dependent diabetes, hypertension, who presents with day 3 of right-sided arm and leg weakness and clumsiness of the right leg at home. Associated with some spinning vertiginous symptoms which he states mildly improved with home meclizine. Right leg weakness caused him to fall once without injury. He arrives to ER blood pressure 137/97, alert and interactive. He does demonstrate motor weakness of the right arm and right leg against resistance. He is able to lift all 4 extremities against gravity. He does not demonstrate facial droop and there is no dysmetria. Given his risk factors, note in the chart of previous stroke, patient high risk for CVA. IV access established, placed on a alarm security or surveillance monitor, referred for chest x-ray, CT scan of the head and laboratory analysis. Patient's diagnostic studies reveal white count of 9, hematocrit 34, platelets 167. Chemistries note persistent renal insufficiency with BUN 30, creatinine 3.0. Troponin is negative. CT scan of the head without evidence of acute finding. There is decreased attenuation in the white matter consistent with small vessel ischemic disease and old right basal ganglia lacunar infarct. Chest x-ray unremarkable. Given patient's renal insufficiency will defer CTA. Discussed with Dr. Romeo, who advocates for 300 mg Plavix load and aspirin. Will admit to medicine service. HPI General Mode of arrival: EMS. Date/Time Provider Initiated Documentation: 11/23/20 11:07. Limitations to Documentation: no limitations. Information obtained by: patient and EMS. History of Present Illness 70 year old M presents to the emergency department with the chief complaint of R weakness for 3 days, described as moderate, and is localized to the right. Patient reports no radiation. Patient started experiencing this day(s) and it has been intermittent. No relieving factors improve symptom(s), No exacerbating factors reported . Patient notes other (Notes that he fell at home without injury due to right leg weakness. Some dizziness. No headache. No syncope.); denies confusion, chest pain, fever/chills, headaches, shortness of breath and syncope. Related Data Home Medications Medication Instructions Recorded Confirmed calcium carbonate 200 mg calcium 200 mg PO BID PRN 06/16/19 11/23/20 (500 mg) chewable tablet famotidine 20 mg tablet 20 mg PO DAILY PRN 06/16/19 11/23/20 lidocaine 4 % topical gel 1 applic TP BID PRN #113 gm 10/23/19 11/23/20 allopurinol 300 mg tablet 150 mg PO DAILY #90 tab 02/15/20 11/23/20 glipizide 5 mg tablet 2.5 mg PO TID #135 tab 02/15/20 11/23/20 insulin glargine 100 unit/mL (3 16 unit SUBCUT DAILY #1 box 02/15/20 11/23/20 mL) subcutaneous pen lancets 28 gauge #100 ea 02/15/20 10/11/20 pen needle, diabetic 31 gauge x #100 each 03/07/20 10/11/20/3 amlodipine 5 mg tablet 5 mg PO DAILY #90 tab 04/04/20 11/23/20 blood sugar diagnostic #100 each 09/26/20 10/11/20 blood-glucose meter #1 ea 09/27/20 10/11/20 lancing device #1 ea 10/11/20 10/11/20 Previous Rx's Medication Instructions Recorded lidocaine 4 % topical gel 1 applic TP BID PRN #113 gm 10/23/19 allopurinol 300 mg tablet 150 mg PO DAILY #90 tab 02/15/20 glipizide 5 mg tablet 2.5 mg PO TID #135 tab 02/15/20 insulin glargine 100 unit/mL (3 16 unit SUBCUT DAILY #1 box 02/15/20 mL) subcutaneous pen lancets 28 gauge #100 ea 02/15/20 pen needle, diabetic 31 gauge x #100 each 03/07/20 1/3 amlodipine 5 mg tablet 5 mg PO DAILY #90 tab 04/04/20 blood sugar diagnostic #100 each 09/26/20 blood-glucose meter #1 ea 09/27/20 Allergies Allergy/AdvReac Type Severity Reaction Status Date / Time metformin AdvReac Severe diarrhea Verified 11/23/20 10:40 Nfoyprh-LWV-RwU Reductase AdvReac Severe myalgias Unverified 11/23/20 10:40 Inhibitor [Poiprqj-Jyd-Ixs Reductase Inhibitor] pantoprazole AdvReac Intermediate nausea and Verified 11/23/20 10:40 vomiting General Stated Complaint: [employer] APRIL: 3 Review of Systems Narrative: 8 systems reviewed and otherwise negative. Fully immunized against COVID-19. ON LICENSE OF [facility] Medical History Chronic pain syndrome Closed fracture of clavicle Diabetic macular edema (01/05/12) Dyspepsia (10/11/17) Essential hypertension (02/05/13) Family history of malignant neoplasm of prostate brother Fatigue Gastroparesis diabeticorum GERD (gastroesophageal reflux disease) Hyperlipidemia Moderate nonproliferative diabetic retinopathy (01/04/11) Optical expressions; severe NPDR; [facility] w/DME OD 2013 Referral to [facility] [place] [facility] for evaluation. 01/05/2014: [facility] Eval Type II DM with diabetic retinopathy and macular edema with moderatate nonproliferative retinopathy. Phimosis (11/27/16) Presbyesophagus (04/11/17) Stricture and stenosis of esophagus Tinnitus Surgical History Extraction of cataract [facility] PROCEDURES Strabismus surgery as child Family History Mother , 70s RA (rheumatoid arthritis) CHF (congestive heart failure) Depression Heart disease Father , 70s Alcohol abuse Psoriasis Brother , 70s Diabetes Alcohol abuse Hyperlipidemia Myocardial infarction Neoplasm PROSTATE Sister , 70s No problems noted. Social History Smoking/Tobacco Use Status: Never Smoking risk assessment performed?: Yes Alcohol Intake: current Alcohol Intake frequency: 0-2 drinks per day Alcohol type: beer Drug use: Never Substance use type: does not use Caregiver/Support person: No Household members: spouse Housing: house Communication Needs: None current occupation: [employer] Pets and animals: No Sexually active: No Do you think of yourself as: straight/heterosexual Current gender identity: male What is your relationship status?: How often do you talk on the phone with friends or family?: once per week How often do you get together with friends or relatives?: twice per week How often do you attend synagogue or alevism services?: decline to answer Do you belong to any clubs or organized social groups?: yes Panel score (0-1 are the most socially isolated patients): 3 What type of physical activity do you participate in: walking Duration: < 15 minutes/day Frequency: 1-2 times per week Shara/Adventism: Oriental Orthodox Special shara needs: No Seatbelt use: always Helmet use: No Drive intox or ride w/intox driver material handler: No Do you feel safe in your relationship?: Yes Exam Narrative Exam Narrative: GEN: awake, alert, oriented 3. Pleasant, well groomed, interactive. HEAD: Normocephalic, atraumatic ENT: Mucous membranes moist, oropharynx unremarkable, poor dentition, external ear exam unremarkable EYES: PERRL, EOMI NECK: Full ROM, no MIKEL, no menigismus CHEST/RESP: Nontender, clear to auscultation bilateral, no wheeze/rhonchi/rales CARDIOVASCULAR: RRR, no murmur, rub geni. 2+ Rad pulse bilateral ABDOMEN: Soft, nontender, no mass. +Bowel sounds EXT: Full ROM, no edema, no rash Neuro: Cranial nerves II through XII intact. No facial droop appreciated. Right arm and right leg have weakness against resistance. No dysmetria. conversant, interactive. Psych: Speech fluent, thoughts congruent, affect normal Course Vital Signs Vital signs: Vital Signs Temperature 36.4 C L 11/23/20 10:35 Pulse 61 11/23/20 10:35 Respiratory Rate 22 11/23/20 10:35 Blood Pressure 137/97 H 11/23/20 10:35 Pulse Oximetry 97 11/23/20 10:35 Temperature 36.4 C L 11/23/20 10:35 Temperature Source Skin 11/23/20 10:35 Pulse 61 11/23/20 10:35 Respiratory Rate 22 11/23/20 10:35 Respiratory Effort Non-Labored 11/23/20 10:35 Blood Pressure 137/97 H 11/23/20 10:35 Blood Pressure Position Supine 11/23/20 10:35 Pulse Oximetry 97 11/23/20 10:35 Oxygen Delivery Method Room Air 11/23/20 10:35 Oxygen Flow Rate 0 11/23/20 10:35 Pain Level 0 11/23/20 10:35 PAWSS Have you Been Recently Intoxicated or Drunk Within the Last 30 days?: No Have you Ever Experienced Previous Episodes of Alcohol Withdrawal?: No Have you ever Experienced Withdrawal Seizures?: No Have you ever Experienced Delirium Tremens(DT)s?: No Have you ever undergone Alcohol Rehabilitation Treatment (i.e, inpt ot outpatient treatment programs)?: No Have you ever Experienced Blackouts?: No Have you ever Combined Alcohol with other Downers within the last 90 days?: No Have you ever Combined Alcohol with any other Substance of Abuse during the last 90 days?: No Positive Blood Alcohol level on Presentation? [PCS.BAL]: No Evidence of Increased Autonomic Activity (i.e. HR>120, tremor, sweating, agitation, nausea)?: No Result: 0
[2020-11-23 10:45] LABS: Abs Immature Grans 0.03 10^3/uL (0.0-0.06); Absolute Basophil Count 0.03 10^3/uL (0.0-0.2); Absolute Lymphocyte Count 1.86 10^3/uL (1.2-3.4); Absolute Monocyte Count 0.86 10^3/uL (0.1-0.8); Absolute Neutrophil Count 6.37 10^3/uL (1.2-6.7); Basophils % 0.3; Eosinophils % 1.1; HCT 34.3 % (40.0-50.0); HGB 11.5 g/dL (13.5-17.5); Immature Grans % 0.3; Lymphocytes % 20.1; MCH 29.6 pg (27.0-33.0); MCHC 33.5 % (32.0-36.0); MCV 88.4 fL (80-95); MPV 9.6 fL (8.0-11.0); Monocytes % 9.3; Neutrophils % 68.9; Nucleated RBC 0 %; Platelet Count 167 10^3/uL (130-400); RBC 3.88 10^6/uL (4.36-5.78); RDW 13.7 % (11.8-14.1); RDW-SD 44.1 fL; WBC 9.25 10^3/uL (4.4-10.8)
[2020-11-23] MEDS: Normal Saline 1,000 ML 125 ML IV (10:45)
[2020-11-23 11:01] LABS: Source Nasal/Nares
[2020-11-23 11:01] LABS: ALT 26 U/L (16-63); AST 18 U/L (15-37); Albumin 3.6 g/dL (3.4-5.0); Alkaline Phosphatase 64 U/L (46-116); Anion Gap 5.5 mmol/L (3-11); BUN 30 mg/dL (7-18); Bilirubin, Total 0.5 mg/dL (0.2-1.0); CO2 30.5 mmol/L (21.0-32.0); Calcium 10.8 mg/dL (8.5-10.1); Chloride 108 mmol/L (98-107); Estimated GFR 20.85 (mL/min/1.73m2); Glucose 92 mg/dL (74-106); Magnesium 1.5 mg/dL (1.8-2.4); Potassium 3.9 mmol/L (3.5-5.1); Sodium 144 mmol/L (136-145); Total Protein 7.8 g/dL (6.4-8.2); Troponin I < 0.05 ng/mL (<0.06)
[2020-11-23] MEDS: MAGNESIUM SULFATE 1 GM/100 ML BAG IVPB (11:25)
[2020-11-23 12:00] LABS: Bilirubin Negative (Negative); Blood Negative (Negative); Clarity Clear (Clear); Glucose Negative (Negative); Ketones Negative (Negative); Leukocyte Esterase Trace (Negative); Nitrite Negative (Negative); Urobilinogen 0.2 EU/dL (Up TO 0.2)
[2020-11-23 12:10] LABS: Bacteria Rare HPF (Negative); C & S Indicated? Yes; Casts Negative LPF (Negative); Crystals Negative HPF (Negative); Epithelial Cells Rare HPF (Negative); Mucus Negative (Negative); RBC Negative HPF (0-2)
--- NOTE | 2020-11-23 13:45 | IN_ITS ---
Date of service: 11/23/20 Time of Service: 15:45 PT Notes Visit Reasons: Suspected acute CVA Physical Therapy Inpatient Initial Evaluation Date: 11/23/2020 Referring Doctor: Linda Cornell MD PT Orders: PT CONSULT: Limited ability Precautions: Fall. Standard. Activity as tolerated. Vertigo. Patient Profile/Admitting Diagnosis: Alli is a 70-year-old male who presented to the ED today due to spinning sensation and 3 days' worth of increasing right- sided arm and leg weakness as well as clumsiness of the right LE. Patient is diagnosed with acute CVA and stage III chronic renal failure. PMHX: Medical History Chronic pain syndrome Closed fracture of clavicle Diabetic macular edema (01/05/12) Dyspepsia (10/11/17) Essential hypertension (02/05/13) Family history of malignant neoplasm of prostate brother Fatigue Gastroparesis diabeticorum GERD (gastroesophageal reflux disease) Hyperlipidemia Moderate nonproliferative diabetic retinopathy (01/04/11) Optical expressions; severe NPDR; [facility] w/DME OD 2013 Referral to [facility] for evaluation. 01/05/2014: [facility] Eval Type II DM with diabetic retinopathy and macular edema with moderatate nonproliferative retinopathy. Phimosis (11/27/16) Presbyesophagus (04/11/17) Stricture and stenosis of esophagus Tinnitus Surgical History Extraction of cataract [facility] PROCEDURES Strabismus surgery as child Social History/Home Situation: Lives with in a private home with 3-4 steps to enter with rail on B sides. Independent with all aspects of ADLs without assi stive ambulatory device prior to hospital admission. Electric keyboard player/organist. Equipment Owned/DME: None Subjective: Elaborates that once his R leg gives way, he just falls down to the ground and his hands cannot help him prevent a fall. He reports that he has had vertigo for the past 1 to 2 years and adds that, since 6 months ago, the dizziness has typically preceded the right leg spasms. He reports that intake of Meclizine at home helps with controlling dizziness and the subsequent right LE spasms. At time of evaluation, patient denies headache, chest pain, and the right leg spasms. Did report mild to moderate dizziness during short distance ambulation and transfer onto chair. Objective: General Observation: Supine in bed. IV in the right UE. Telemetry monitoring in place. Mental Status: Alert and oriented as to person, place, time, and purpose. Able to pay attention, focus, and respond appropriately. Pain: 0/10 Vital Signs: BLOWER INSTALLER Aminta reports that patient's blood pressure dropped 30 mmHg from the time she took it on arrival and right before he stood up for mobility assessment. ROM: Right Upper Extremity: Shoulder Flexion WFL. Shoulder abduction WFL. Elbow flexion WFL. Wrist flexion WFL. Functional opening and closing of hand WFL. Left Upper Extremity: Shoulder Flexion WFL. Shoulder abduction WFL. Elbow flexion WFL. Wrist flexion WFL. Functional opening and closing of hand WFL. Right Lower Extremity: Hip flexion WFL. Hip abduction WFL. Knee flexion WFL. Ankle dorsiflexion to neutral only. Ankle plantarflexion WFL. Left Lower Extremity: Hip flexion WFL. Hip abduction WFL. Knee flexion WFL. Ankle dorsiflexion WFL. Ankle plantarflexion WFL. Strength: Right Upper Extremity: Shoulder flexors 4-/5. Shoulder abductors 4-/5. Elbow flexors 4-/5. Elbow extensors 4-/5. Human Resources Support Specialist comparatively weaker than the left. Left Upper Extremity: Shoulder flexors 5/5. Shoulder abductors 5/5. Elbow flexors 5/5. Elbow extensors 5/5. Human Resources Support Specialist strong. Right Lower Extremity: Hip flexors 4/5. Hip abductors 4/5. Knee flexors 4/5. Knee extensors 4/5. Ankle dorsiflexors 3-/5. Ankle plantarflexors 4/5. Left Lower Extremity: Hip flexors 5/5. Hip abductors 5/5. Knee flexors 5/5. Knee extensors 5/5. Ankle dorsiflexors 5/5. Ankle plantarflexors 5/5. Bed Mobility/Transfers: Supine to sit contact-guard assist Sit to stand contact-guard assist of 2 Stand to sit standby assist Bed to reclining chair contact-guard assist of 2 Gait: Instructed patient with level surface ambulation of 8 steps +1 turn to the left +2 step backs feet requiring contact-guard assist of 2. Steps hesitant and not continuous. Marija decreased with wide LEOLA. Step height on the right decreased. Step length on the right decreased. No LOB. Reported mild to moderate dizziness. Denies headache and chest pain. Balance: Static Sitting: Good Dynamic Sitting: Good Static Standing: Fair Dynamic Standing: Fair Special Tests: Mobility Limitations Standardized Measure [facility] AM-PAC 6 clicks Basic Mobility Inpatient Short Form: Raw Score: 18 CMS Score: 47% deficit Informed Consent/Education: Patient was instructed in purpose of PT consult and plan of care. Agreeable to proceed with established PT POC to achieve personal goals. Assessment: Alli is fearful of R LE giving way again and him falling. Agreeable to using the FWW for all mobility ADL performance for now. Reported vertiginous symptom while upright and moving. Denies vertigo in supine and sitting at edge of bed. Will require skilled services to address new onset right UEs/LE weakness as well as provide neuromuscular re-education and vestibular rehab as needed. Patient presents with clinical signs and symptoms consistent with current/admitting diagnoses that have resulted to mobility limitations, gait instability, generalized weakness, and overall ADL decline as demonstrated by the following impairment level findings: 1. Decreased strength to R UE/LE major muscle groups 2. Impaired standing balance 3. Impaired activity tolerance 4. Vertigo 5. R LE spasms 6. Fearfulness of falling Impairments are contributing to the following functional limitations: 1. Decline in bed mobility skills 2. Decline in transfer skills 3. Difficulty with ambulation without assistive device and physical assistance 4. Increased completion time for mobility ADL performance 5. Increased risk for falls 6. Difficulty with managing steps alone safely Patient is assessed as a 69921 moderate complexity based on the following: History: 70-year-old male with past medical history as indicated above Examination: Demonstrable impairment in strength, balance, and mobility level with underlying impairments and functional limitations as exhibited above as well as deficit score of 47% utilizing the [facility] Mobility Inpatient Short Form Presentation: Evolving Decision Makin moderate complexity Goals: Goals X1 week 1. Supine-Sit independent 2. Sit-Supine independent 3. Sit-Stand independent 4. Stand-Sit independent with no AD 5. Bed-Chair independent with no AD 6. Chair-Bed independent with no AD 7. Independent gait on level surface with use of no AD for at least 200 feet without report of pain 8. Independent stair negotiation while holding onto B rails for at least 5 steps without report of pain 9. Good static and dynamic standing balance/tolerance Plan of Care/Treatment Plan: 1-2x/day, 7 days/week x 1 week. Plan of care has been reviewed with the WATER PROJECT ENGINEER providing the service under Physical Therapy direction. Initiate Physical Therapy intervention for pain management as needed, strengthening, bed mobility, transfers, gait, stairs, balance training, and use of assistive device. DISCHARGE RECOMMENDATIONS: Patient will benefit from home health PT services in order to progress mobility level using least restrictive assistive ambulatory device, assess home safety, identify additional equipment needs, and establish a functional maintenance program that will increase ability of patient to remain at home. TREATMENT CODE/TIME: 16236 x 20 minutes, 79047 x 15 minutes beginning at 13:45 PM. Thank you for the opportunity to participate in the care of this patient. Myrna Garcia PT, DPT, CLT [facility] [place], [place]
[2020-11-23] MEDS: Clopidogrel 300 MG TAB PO (13:56)
[2020-11-23] MEDS: Aspirin 325 MG TAB PO (13:57)
[2020-11-23 14:31] LABS: Troponin I < 0.05 ng/mL (<0.06)
[2020-11-23] MEDS: Normal Saline Flush 10 ML SYR IVP (14:54)
[2020-11-23] MEDS: MAGNESIUM SULFATE 2 GM/50 ML BAG IVPB (14:54)
--- NOTE | 2020-11-23 15:34 | W.NEUROCONSU ---
Date of service: 11/23/20 Time of Service: 15:34 Assessment and Plan Assessment and plan (1) Right hemiparesis: Status: Acute (2) Vertigo: Status: Chronic Assessment and plan: Mr. Edwards is a 70 year-old, left-handed man admitted with the following: #1. Right hemiparesis. Concerning for stroke. Agree with brain MRI w/o as further work-up along with MRA head/neck, TTE, telemetry, lipid panel, and A1c. Continue clopidogrel 75mg daily + aspirin 81mg daily for now. No statin due to previous ADRs. PT/OT. #2. Positional vertigo. He has acute on chronic dizziness. Possibly related to #1 above. PT. Meclizine prn. #3. Right leg spasms. Irregular movements of the right leg that do not fit into any neurological category at this time. Will continue to observe. History of Present Illness History of Present Illness Chief Complaint: right hemiparesis Narrative: Handedness: LEFT. HPI: Mr. Edwards is a 70 year-old man with hypertension, HLD, DM with retinopathy, chronic renal disease, gout, stroke, and GERD. Mr. Edwards was admitted today with 3 days of increasing right hemiparesis, sparing the face, culminating in multiple falls. He has no numbness or speech changes. He has however also noted acute on chronic dizziness described as vertigo. His vertigo occurs only with movement/activity and improves when still. He has no associated nausea or emesis. His vertigo responds to meclizine. Additionally, he also describes what he calls leg spasms. Initially he noted that these have been occurring for several weeks, but then later said only since yesterday and blames these spasms as the reason he fell, not the weakness. However, also notes that the spasms only occur when laying down. He also noted that the dizziness triggers the spasm? He notes that these tremors have become increasingly more frequent and are now occurring every 3 minutes! He was able to demonstrate the spasm: while sitting in the recliner with his feet out in front of him, his right leg simply pulled up, bent at the knee, and heel to his butt. Please note that he did not have a single one of these events during my entire visit with him until he demonstrated it. He notes that these spasms are not painful. When they occur, he simply moves his leg back to its original position. The movement as witnessed was NOT consistent with a tremor, myoclonic jerk, chorea, or reflex. I am not sure what to make of this movement at all. In the ER, his BP was 137/97. Labs were significant for Hgb 11.5 and Cr 3.0 (2.6 and 2.8 earlier this year). -CTH (11/23/20): old right caudate infarct. Mild atrophy and chronic vascular changes. This appears unchanged compared to CT from 2020. I reviewed these images personally and this is my personal interpretation. Of note, I previously met Mr. Edwards via a single telehealth visit in July 2019. He was seen at that time for suspected stroke that occurred in Feb 2019 manifested by left hemiparesis. He underwent a carotid ultrasound at that time which showed no stenosis. He was recommended aspirin 81mg daily along with TTE and cardiac monitoring as further work-up; along with follow-up for exam. He never followed up unfortunately and did not complete recommended testing. He apparently was taking aspirin for some time, but stopped it a long time ago. In the ER, he was given 300mg Plavix and aspirin for concern of acute stroke. He has had ADRs to statins in the past. Consults Requesting physician: Linda Cornell Review of Systems All systems reviewed & are unremarkable except as noted in HPI and below PFSH Medical History Chronic pain syndrome Closed fracture of clavicle Diabetic macular edema (01/05/12) Dyspepsia (10/11/17) Essential hypertension (02/05/13) Family history of malignant neoplasm of prostate brother Fatigue Gastroparesis diabeticorum GERD (gastroesophageal reflux disease) Hyperlipidemia Moderate nonproliferative diabetic retinopathy (01/04/11) Optical expressions; severe NPDR; OU w/DME OD 2013 [place] [facility] [place] [place]. 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 Phimosis (11/27/16) Presbyesophagus (04/11/17) Stricture and stenosis of esophagus Tinnitus Surgical History Extraction of cataract [facility] [place]EDURES Strabismus surgery as child Family History Mother , 70s RA (rheumatoid arthritis) CHF (congestive heart failure) Depression Heart disease Father , 70s Alcohol abuse Psoriasis Brother , 70s Diabetes Alcohol abuse Hyperlipidemia Myocardial infarction Neoplasm PROSTATE Sister , 70s No problems noted. Social History Smoking/Tobacco Use Status: Never Smoking risk assessment performed?: Yes Alcohol Intake: current Alcohol Intake frequency: 0-2 drinks per day Alcohol type: beer Drug use: Never Substance use type: does not use Caregiver/Support person: No Household members: spouse Housing: house Communication Needs: None current occupation: [employer] Pets and animals: No Sexually active: No Do you think of yourself as: straight/heterosexual Current gender identity: male What is your relationship status?: How often do you talk on the phone with friends or family?: once per week How often do you get together with friends or relatives?: twice per week How often do you attend caodaism or mandaeism services?: decline to answer Do you belong to any clubs or organized social groups?: yes Panel score (0-1 are the most socially isolated patients): 3 What type of physical activity do you participate in: walking Duration: < 15 minutes/day Frequency: 1-2 times per week Shara/Anglican: Samaritan Special shara needs: No Seatbelt use: always Helmet use: No Drive intox or ride w/intox 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 Do you feel safe in your relationship?: Yes Visit Medication and Allergies Active Medications Generic Name Dose Route Start Last Admin Trade Name Freq PRN Reason Stop Dose Admin Acetaminophen 0 mg 11/23/20 12:53 Acetaminophen 325 Mg Tab PO Q4H PRN PRN Al Hydrox/Mg Hydrox/Simethicone 30 ml 11/23/20 12:53 Mylanta Suspension 30 Ml Cup PO Q2H PRN PRN Dimethicone/Zinc Oxide 0 gm 11/23/20 12:53 Jakub Protect Cream 142 Gm Tube TP PRN PRN Docusate Sodium 100 mg 11/23/20 12:53 Docusate Sodium 100 Mg Cap PO TID PRN PRN Heparin Sodium (Porcine) 5,000 units 11/23/20 16:00 Heparin 5,000 Units/Ml Vial SC Q8H ROXANA Sodium Chloride 1,000 mls @ 75 mls/hr 11/23/20 10:30 11/23/20 10:45 Saline 1000ml Bag IV 125 mls/hr INFUSION ROXANA Administration Magnesium Sulfate 2 gm in 50 mls @ 25 mls/hr 11/23/20 14:27 11/23/20 14:54 IVPB 11/23/20 16:26 25 mls/hr NOW ONE Administration IV Miscellaneous Supplies 1 each 11/23/20 10:30 Iv Access IV DIRECTED ROXANA Magnesium Hydroxide 30 ml 11/23/20 12:53 Milk Of Magnesia 30 Ml Cup PO DAILY PRN PRN Sodium Chloride 0 ml 11/23/20 10:22 11/23/20 14:54 Normal Saline Flush 10 Ml Syr IVP 10 ml PRN PRN Administration Allergies metformin Adverse Reaction (Severe, Verified 11/23/20 10:40) diarrhea Wjvwbbv-QHE-PiA Reductase Inhibitor [Kijnecg-Adl-Xnd Reductase Inhibitor] Adverse Reaction (Severe, Unverified 11/23/20 10:40) myalgias pantoprazole Adverse Reaction (Intermediate, Verified 11/23/20 10:40) nausea and vomiting Exam Narrative Exam Narrative: Physical Exam: Gen: Patient of apparent stated age, NAD Head and face: no facial or cranial abnormalities Neck: Supple, no meningismus, no occipital tenderness CV: + S1, S2, RRR, no murmur Resp: CTA B/L Abd: soft, nontender, nondistended Ext: No edema. No clubbing or cyanosis. No bony deformity. Neuro Exam: Language: fluency, naming, repetition, and comprehension intact; Mental Status: AAOx3, current events intact, fund of knowledge intact; Speech: no dysarthria Cranial nerves: Funduscopy: not performed CN II: visual witt intact CN III, IV, : extraocular movements intact, no nystagmus, pupils symmetric and reactive to light CN V: face sensation intact to LT and PP CN VII: no facial asymmetry noted CN VIII: hearing intact bilaterally CN IX, X: palate rises symmetrically CN XI: trapezius/SCM 5/5 bilaterally CN XII: protrudes tongue symmetrically Sensory: intact to LT, PP, vibration, and joint position in all extremities Motor: bulk and tone intact. Fine motor movements intact bilaterally. No pronator drift. Strength 5/5 throughout except 4/5 R tricep, 4+/5 right hip flexor. Reflexes: hyporeflexic throughout with absent achilles reflexes; toes neutral bilaterally; Coordination: FTN and HTS intact bilaterally Gait: not tested Results Last Vital Signs Temp 97.5 F L 11/23/20 14:32 Pulse 64 11/23/20 14:32 Resp 20 11/23/20 14:32 BP 168/79 H 11/23/20 14:32 Pulse Ox 98 11/23/20 14:32 Labs Result diagrams: 11/23/20 10:37 11/23/20 10:37 Labs: Laboratory Results - last 24 hr 11/23/20 11/23/20 11/23/20 10:37 10:37 10:53 WBC 9.25 RBC 3.88 L Hgb 11.5 L Hct 34.3 L MCV 88.4 MCH 29.6 MCHC 33.5 RDW 13.7 Plt Count 167 MPV 9.6 Immature Gran % 0.3 Neutrophils % 68.9 Lymphocytes % 20.1 Monocytes % 9.3 Eosinophils % 1.1 Basophils % 0.3 Nucleated RBC % 0 Absolute Neutrophils 6.37 Absolute Lymphocytes 1.86 Absolute Monocytes 0.86 H Absolute Eosinophils 0.10 Absolute Basophils 0.03 Sodium 144 Potassium 3.9 Chloride 108 H Carbon Dioxide 30.5 Anion Gap 5.5 BUN 30 H Creatinine 3.0 H Estimated GFR/1.73 m2 20.85 Glucose 92 Calcium 10.8 H Magnesium 1.5 L Total Bilirubin 0.5 AST 18 ALT 26 Alkaline Phosphatase 64 Troponin I < 0.05 Total Protein 7.8 Albumin 3.6 Urine Color Urine Clarity Urine pH Ur Specific [place] Urine Protein Urine Ketones Urine Blood Urine Nitrite Urine Bilirubin Urine Urobilinogen Ur Leukocyte Esterase Urine RBC Urine WBC Ur Epithelial Cells Urine Crystals Urine Bacteria Urine Casts Urine Mucus Ur Culture Indicated? Urine Glucose COVID-19 Source Nasal/Nares 11/23/20 11/23/20 11:50 14:05 WBC RBC Hgb Hct MCV MCH MCHC RDW Plt Count MPV Immature Gran % Neutrophils % Lymphocytes % Monocytes % Eosinophils % Basophils % Nucleated RBC % Absolute Neutrophils Absolute Lymphocytes Absolute Monocytes Absolute Eosinophils Absolute Basophils Sodium Potassium Chloride Carbon Dioxide Anion Gap BUN Creatinine Estimated GFR/1.73 m2 Glucose Calcium Magnesium Total Bilirubin AST ALT Alkaline Phosphatase Troponin I < 0.05 Total Protein Albumin Urine Color Yellow Urine Clarity Clear Urine pH 7.0 Ur Specific [place] 1.020 Urine Protein Negative Urine Ketones Negative Urine Blood Negative Urine Nitrite Negative Urine Bilirubin Negative Urine Urobilinogen 0.2 Ur Leukocyte Esterase Trace H Urine RBC Negative Urine WBC 3-5 Ur Epithelial Cells Rare Urine Crystals Negative Urine Bacteria Rare Urine Casts Negative Urine Mucus Negative Ur Culture Indicated? Yes Urine Glucose Negative COVID-19 Source
[2020-11-23 15:49] LABS: COVID-19 PCR Negative (Negative)
[2020-11-23] MEDS: Heparin 5,000 UNITS/ML VIAL 5000 UNITS SC (16:00)
--- NOTE | 2020-11-23 17:10 | HPE_ITS ---
Date of service: 11/23/20 Time of Service: 17:10 Assessment and Plan Assessment and plan (1) Acute CVA (cerebrovascular accident): Status: Suspected Assessment and plan: Monitor on tele. Monitor neurochecks. Await MRI/MRA head/neck, echo w/ bubble study. Consult PT/OT. Check A1C, B12, TSH, Lyme titer. (2) Normocytic anemia: Status: Acute Assessment and plan: Check amemia studies. (3) Vertigo: Status: Chronic Assessment and plan: PT consulted. Await MRI brain (4) Chronic renal insufficiency, stage III (moderate): Status: Chronic Assessment and plan: Cr near baseline. Given hypercalcemia, I believe Mr Edwards is somewhat dehydrated. Will give gentle IVF (5) IDDM (insulin dependent diabetes mellitus): Status: Chronic Assessment and plan: Cover with SSI (6) Hypomagnesemia: Status: Acute Assessment and plan: Replete (7) Hypercalcemia: Status: Acute Assessment and plan: Hydrate intravenously. Recheck in am (8) DVT prophylaxis: Status: Acute Assessment and plan: SC heparin (9) Discharge planning issues: Status: Acute Assessment and plan: Full code History of Present Illness History of Present Illness Chief Complaint: RUE/RLE weakness Narrative: Mr Edwards is a 70 year old male with PMHx of suspected prior CVA, vertigo, IDDM2, hypertension, CKD 3, who presented to [facility] ED today c/o 3 days of RUE/RLE weakness. The patient states that he actually first noticed RUE/RLE weakness 3 weeks ago when getting out of the car when his right leg gave out and he felt. He felt dizzy then and that's how he states he knows that this is coming on. These episodes have come and gone, but have returned 3 days ago and persisted since. He describes 4 separate falls. Another new feature of what has been happe zoe in the last three days is what he describes as spasms in his thigh that make him flex his hip. The patient denies numbness/tingling or facial weakness. He denies trauma. Denies any exposure to COVID and is fully vaccinated against COVID. In the ER, he was felt to be weak against resistance on the R. The patient was loaded with aspirin and plavix. Hospitalist admission was requested. Review of Systems All systems reviewed & are unremarkable except as noted in HPI and below PFSH Medical History Chronic pain syndrome Closed fracture of clavicle Diabetic macular edema (01/05/12) Dyspepsia (10/11/17) Essential hypertension (02/05/13) Family history of malignant neoplasm of prostate brother Fatigue Gastroparesis diabeticorum GERD (gastroesophageal reflux disease) Hyperlipidemia Moderate nonproliferative diabetic retinopathy (01/04/11) Optical expressions; severe NPDR; OU w/DME OD 2013 Referral to [facility] [place] for [place]. 01/05/2014: [facility] [place] Eval Type II DM with diabetic retinopathy and macular edema with moderatate nonproliferative retinopathy. Phimosis (11/27/16) Presbyesophagus (04/11/17) Stricture and stenosis of esophagus Tinnitus Surgical History Extraction of cataract [facility] [place] PROCEDURES Strabismus surgery as child Family History Mother , 70s RA (rheumatoid arthritis) CHF (congestive heart failure) Depression Heart disease Father , 70s Alcohol abuse Psoriasis Brother , 70s Diabetes Alcohol abuse Hyperlipidemia Myocardial infarction Neoplasm PROSTATE Sister , 70s No problems noted. Social History Smoking/Tobacco Use Status: Never Smoking risk assessment performed?: Yes Alcohol Intake: current Alcohol Intake frequency: 0-2 drinks per day Alcohol type: beer Drug use: Never Substance use type: does not use Caregiver/Support person: No Household members: spouse Housing: house Communication Needs: None current occupation: [employer] Pets and animals: No Sexually active: No Do you think of yourself as: straight/heterosexual Current gender identity: male What is your relationship status?: How often do you talk on the phone with friends or family?: once per week How often do you get together with friends or relatives?: twice per week How often do you attend shinto or buddhism services?: decline to answer Do you belong to any clubs or organized social groups?: yes Panel score (0-1 are the most socially isolated patients): 3 What type of physical activity do you participate in: walking Duration: < 15 minutes/day Frequency: 1-2 times per week Shara/Latter Day: Pentecostalism Special shara needs: No Seatbelt use: always Helmet use: No Drive intox or 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 Do you feel safe in your relationship?: Yes Meds Allergies and Home Medications Allergies Allergy/AdvReac Type Severity Reaction Status Date / Time metformin AdvReac Severe diarrhea Verified 11/23/20 10:40 Rxyxspw-[place]-FmT Reductase AdvReac Severe myalgias Unverified 11/23/20 10:40 Inhibitor [Eaaidhx-Xpx-Kkf Reductase Inhibitor] pantoprazole AdvReac Intermediate nausea and Verified 11/23/20 10:40 vomiting Home Medications Medication Instructions Recorded Confirmed Type calcium carbonate 200 mg calcium 200 mg PO BID PRN 06/16/19 11/23/20 History (500 mg) chewable tablet famotidine 20 mg tablet 20 mg PO DAILY PRN 06/16/19 11/23/20 History lidocaine 4 % topical gel 1 applic TP BID PRN #113 gm 10/23/19 11/23/20 Rx allopurinol 300 mg tablet 150 mg PO DAILY #90 tab 02/15/20 11/23/20 Rx glipizide 5 mg tablet 2.5 mg PO TID #135 tab 02/15/20 11/23/20 Rx insulin glargine 100 unit/mL (3 16 unit SUBCUT DAILY #1 box 02/15/20 11/23/20 Rx mL) subcutaneous pen lancets 28 gauge #100 ea 02/15/20 10/11/20 Rx pen needle, diabetic 31 gauge x #100 each 03/07/20 10/11/20 Rx 1/3 amlodipine 5 mg tablet 5 mg PO DAILY #90 tab 04/04/20 11/23/20 Rx blood sugar diagnostic #100 each 09/26/20 10/11/20 Rx blood-glucose meter #1 ea 09/27/20 10/11/20 Rx lancing device #1 ea 10/11/20 10/11/20 History Exam Narrative Exam Narrative: General: Pleasant Obese male, A&Ox3, comfortable in a chair, guarding R arm Neurological: A&Ox3, CN II- XII intact, sensory intact, 4+/5 RUE/RLE strenght, 5/5 LUE/LLE strength. DTRs intact. No nystagmus. No clonus. Psychiatric: Pleasant/cooperative, appropriate speech pattern/content, though does need to be prompted to tell the story in sequence Skin: Visible skin intact, including B feet HEENT: Atraumatic, normocephalic, EOMI, MMM, clear oropharynx, no submandibular or cervical lymphadenopathy, no goiter or JVD Cardiovascular: RRR, no m/r/g Lungs: CTAB Gastrointestinal: soft, nontender, nondistended Genitourinary: deferred Extremities: no edema/clubbing/cyanosis/lesions BLE's, 1+ pedal pulse B Results Imaging Additional studies: CXR: No acute pulmonary findings. CT head w/o contrast: 1. No acute intracranial process. EKG: HR 61, NSR, nonspecific ST-T changes Labs Result diagrams: 11/23/20 10:37 11/23/20 10:37 Labs: Laboratory Results - last 24 hr 11/23/20 11/23/20 11/23/20 10:37 10:37 10:53 WBC 9.25 RBC 3.88 L Hgb 11.5 L Hct 34.3 L MCV 88.4 MCH 29.6 MCHC 33.5 RDW 13.7 Plt Count 167 MPV 9.6 Immature Gran % 0.3 Neutrophils % 68.9 Lymphocytes % 20.1 Monocytes % 9.3 Eosinophils % 1.1 Basophils % 0.3 Nucleated RBC % 0 Absolute Neutrophils 6.37 Absolute Lymphocytes 1.86 Absolute Monocytes 0.86 H Absolute Eosinophils 0.10 Absolute Basophils 0.03 Sodium 144 Potassium 3.9 Chloride 108 H Carbon Dioxide 30.5 Anion Gap 5.5 BUN 30 H Creatinine 3.0 H Estimated GFR/1.73 m2 20.85 Glucose 92 Calcium 10.8 H Magnesium 1.5 L Total Bilirubin 0.5 AST 18 ALT 26 Alkaline Phosphatase 64 Troponin I < 0.05 Total Protein 7.8 Albumin 3.6 Urine Color Urine Clarity Urine pH Ur Specific [place] Urine Protein Urine Ketones Urine Blood Urine Nitrite Urine Bilirubin Urine Urobilinogen Ur Leukocyte Esterase Urine RBC Urine WBC Ur Epithelial Cells Urine Crystals Urine Bacteria Urine Casts Urine Mucus Ur Culture Indicated? Urine Glucose COVID-19 Source Nasal/Nares SARS-CoV-2 (PCR) Negative 11/23/20 11/23/20 11:50 14:05 WBC RBC Hgb Hct MCV MCH MCHC RDW Plt Count MPV Immature Gran % Neutrophils % Lymphocytes % Monocytes % Eosinophils % Basophils % Nucleated RBC % Absolute Neutrophils Absolute Lymphocytes Absolute Monocytes Absolute Eosinophils Absolute Basophils Sodium Potassium Chloride Carbon Dioxide Anion Gap BUN Creatinine Estimated GFR/1.73 m2 Glucose Calcium Magnesium Total Bilirubin AST ALT Alkaline Phosphatase Troponin I < 0.05 Total Protein Albumin Urine Color Yellow Urine Clarity Clear Urine pH 7.0 Ur Specific [place] 1.020 Urine Protein Negative Urine Ketones Negative Urine Blood Negative Urine Nitrite Negative Urine Bilirubin Negative Urine Urobilinogen 0.2 Ur Leukocyte Esterase Trace H Urine RBC Negative Urine WBC 3-5 Ur Epithelial Cells Rare Urine Crystals Negative Urine Bacteria Rare Urine Casts Negative Urine Mucus Negative Ur Culture Indicated? Yes Urine Glucose Negative COVID-19 Source SARS-CoV-2 (PCR) Last Vital Signs Temp 36.4 C L 11/23/20 14:32 Pulse 64 11/23/20 14:32 Resp 20 11/23/20 14:32 BP 168/79 H 11/23/20 14:32 Pulse Ox 98 11/23/20 14:32 PAWSS Have you Been Recently Intoxicated or Drunk Within the Last 30 days?: No Have you Ever Experienced Previous Episodes of Alcohol Withdrawal?: No Have you ever Experienced Withdrawal Seizures?: No Have you ever Experienced Delirium Tremens(DT)s?: No Have you ever undergone Alcohol Rehabilitation Treatment (i.e, inpt ot outpatient treatment programs)?: No Have you ever Experienced Blackouts?: No Have you ever Combined Alcohol with other Downers within the last 90 days?: No Have you ever Combined Alcohol with any other Substance of Abuse during the last 90 days?: No Positive Blood Alcohol level on Presentation? [PCS.BAL]: No Evidence of Increased Autonomic Activity (i.e. HR>120, tremor, sweating, agitation, nausea)?: No Result: 0
[2020-11-23] MEDS: Normal Saline 1,000 ML 75 ML IV (18:06)
--- NOTE | 2020-11-23 18:13 | PDOC.CMIN ---
- If Service Date Differs Date of service: 11/23/20 Time of Service: 18:13 Care Management Initial Assess REASON FOR HOSPITALIZATION:: Suspected acute CVA PAST MEDICAL HISTORY/PAST SURGICAL HISTORY:: Chronic pain syndrome. Closed fracture of clavicle. Diabetic macular edema (01/05/12). Dyspepsia (10/11/17). Essential hypertension (02/05/13). Family history of malignant neoplasm of prostate. brother. Fatigue. Gastroparesis diabeticorum. GERD (gastroesophageal reflux disease). Hyperlipidemia. Moderate nonproliferative diabetic retinopathy (01/04/11). Optical expressions; severe NPDR; OU w/DME OD. 2013 Referral to [facility] [place] for [place]. 01/05/2014: [facility] [place] Eval Type II DM with diabetic retinopathy and macular edema with moderatate nonproliferative retinopathy. Phimosis (11/27/16). Presbyesophagus (04/11/17). Stricture and stenosis of esophagus. Tinnitus. Extraction of cataract. [facility] [place]. PROCEDURES. Strabismus surgery as child PREVIOUS FUNCTIONAL STATUS/SOCIAL/FAMILY SUPPORTS:: Alli resides in [place] with his , Catherine. 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 CURRENT FUNCTIONAL STATUS:: Alli is sitting up in his chair when meets with him. He is pleasant in interaction and shares hopes that they can figure it out referring to the symptoms leading up to his admission. He reported having imaging and a neuro consult today and anticipating an MRI tomorrow. He shared no other concerns at this time. ADVANCE DIRECTIVES:: On file, Catherine as agent, Elva as Alternate. Has patient been provided with info about the portal/API?: Yes Did the patient sign up for the portal?: Yes (Previously) CODE STATUS:: Full Code INSURANCE COVERAGE / FINANCIAL ISSUES:: /BS, [facility] [place] CURRENT HOME/COMMUNITY SERVICES/EQUIPMENT:: None, currently. PRIMARY CARE PHYSICIAN:: Sehlli Blackmon DO. POTENTIAL DISCHARGE NEEDS:: Follow up appointments. PATIENT/FAMILY EDUCATION NEEDS:: Review of discharge instructions, discuss Ask Me Three. ANTICIPATED BARRIERS TO DISCHARGE:: None identified. TRANSPORTATION:: Via private vehicle with his , Catherine. PLAN:: Alli will return home when ready per MD. He will follow up with his PCP and plan of care as prescribed. He will transport via private vehicle with his , Catherine.
[2020-11-23] MEDS: Acetaminophen 325 MG TAB PO (21:03)
[2020-11-24] VITALS (9 sets, daily range): BP systolic 121–163; BP diastolic 57–78; PULSE 55–65; RESP 16–18; TEMP 36.5–37.4; O2SAT 94–98
--- NOTE | 2020-11-24 | DI.MRI_ITS ---
Exam(s) MR BRAIN WO EXAM: MR BRAIN WO CLINICAL HISTORY: CVA TECHNIQUE: Multiplanar multisequence MRI of the brain was performed. COMPARISON: CT CT HEAD WO from 11/23/[address] HEAD WO from 11/23/2020 FINDINGS: VENTRICLES AND EXTRA AXIAL SPACES: Normal in size and morphology for the patient's age. MIDLINE SHIFT: None. CEREBRAL PARENCHYMA: There are multiple areas (5-10) of restricted diffusion in the left parietal lob e consistent with an acute infarcts. No space-occupying lesion identified. There are multiple areas of hyperintense signal on the T2 and FLAIR images in the white matter consistent with chronic microva scular ischemic disease. Old lacunar infarcts are present. HEMORRHAGE: None. BRAINSTEM/CEREBELLUM: Normal. CALVARIUM: Normal. VISUALIZED PARANASAL SINUSES/MASTOIDS:Clear. CADDO OF COOMBS: Normal flow void. PITUITARY GLAND: Unremarkable. OTHER FINDINGS: None. IMPRESSION: Multiple areas of restricted diffusion in the left parietal lobe consistent with acute infarcts. Emb olic etiology should be considered. DATA REPOSITORY:
--- NOTE | 2020-11-24 | DI.MRI_ITS ---
Exam(s) MR ANGIO BRAIN WO CLINICAL HISTORY: CVA. TECHNIQUE: Multiplanar multisequence MRA of the brain was performed. COMPARISON: None. FINDINGS: Carotid Arteries: No aneurysm, occlusion or significant stenosis. Anterior Cerebral Arteries: Right: No aneurysm, occlusion or significant stenosis. Left: No aneurysm, occlusion or significant stenosis. Middle Cerebral Arteries: Right: No aneurysm, occlusion or significant stenosis. Left: No aneurysm, occlusion or significant stenosis. Posterior Cerebral Arteries: Right: No aneurysm, occlusion or significant stenosis. Left: No aneurysm, occlusion or significant stenosis. The left TRANSPORTATION CLERK arises from the left PCOM which i s a normal variant. Vertebral Arteries: Right: No aneurysm, occlusion or significant stenosis. Left: No aneurysm, occlusion or significant stenosis. Basilar Artery: No aneurysm, occlusion or significant stenosis. IMPRESSION: No evidence of large vessel occlusion or significant stenosis. DATA REPOSITORY:
[2020-11-24] MEDS: Heparin 5,000 UNITS/ML VIAL 5000 UNITS SC ×4 (00:09→23:39)
[2020-11-24] MEDS: Mylanta Suspension 30 ML CUP PO (00:30)
[2020-11-24] MEDS: oxyCODONE 5 MG TAB PO ×4 (01:37→21:59)
[2020-11-24] MEDS: Normal Saline 1,000 ML 75 ML IV (05:37)
[2020-11-24 07:22] LABS: HCT 28.4 % (40.0-50.0); HGB 9.5 g/dL (13.5-17.5); MCH 29.9 pg (27.0-33.0); MCHC 33.5 % (32.0-36.0); MCV 89.3 fL (80-95); MPV 10.1 fL (8.0-11.0); Platelet Count 154 10^3/uL (130-400); RBC 3.18 10^6/uL (4.36-5.78); RDW 13.7 % (11.8-14.1); RDW-SD 44.2 fL; WBC 7.94 10^3/uL (4.4-10.8)
[2020-11-24 07:36] LABS: Hemoglobin A1C 6.5 % (<5.7); Iron 41 ug/dL (65-175); Total Iron Binding Capacity 238 ug/dL (250-450); Transferrin Sat 17 % (20-55)
--- NOTE | 2020-11-24 07:44 | OTIE_ITS ---
Occupational Therapy Notes Inpatient Occupational Therapy Evaluation Date: 11/24/20 Referring Doctor:Linda Cornell MD OT Orders: Non Urgent Precautions: Fall, standard, Full PATIENT PROFILE/ADMITTING DIAGNOSIS: Pt is a 70 year old male who was admitted through the ED with the following dx (R) hemiparesis, IDDM, hypercalcemia, hypomagnesemia, vertigo, normocytic anemia, acute CVA, serum calcium elevated, fatigue, erectile dysfunction, dysphagia, schatzki's ring, BPH, (R) lumbar radiculopathy. Past Medical History: Medical History Chronic pain syndrome Closed fracture of clavicle Diabetic macular edema (01/05/12) Dyspepsia (10/11/17) Essential hypertension (02/05/13) Family history of malignant neoplasm of prostate brother Fatigue Gastroparesis diabeticorum GERD (gastroesophageal reflux disease) Hyperlipidemia Moderate nonproliferative diabetic retinopathy (01/04/11) Optical expressions; severe NPDR; OU w/DME OD 2013 [place] [facility] [place]. [place]/05/2014: [facility] [place] Type II DM with diabetic retinopathy and macular edema with moderatate nonproliferative retinopathy. Phimosis (11/27/16) Presbyesophagus (04/11/17) Stricture and stenosis of esophagus Tinnitus Surgical History Extraction of cataract [facility] [place]ED[place] Strabismus surgery as child Social History/Home Situation: Pt states that he lives with is in a private home. He reports that he is (I) at his baseline level of function.. The past 2 days he notes that he was dizzy and kept having incidents of weakness. He is unable to perform his LE dressing now. SUBJECTIVE: Pt was sitting in bed when OT arrived, he is agreeable to OT session/consult. OBJECTIVE: General Observation: Pleasant and agreeable, (R) UE hanging on side of the bed, (R) LE in spasm and with increased discomfort, IV in (R) UE in the elbow area Mental Status: A&Ox3 Pain: 9.5/10 in (R) LE ROM: RUE AROM WFL L UE AROM WFL STRENGTH: RUE 3/5 throughout with weakness in technical communicator and slight edema in the plam and MP joints LUE 5/5 throughout globally FUNCTIONAL MOBILITY/ADLS: BATHING pt denies. OT performed functional assessment of bathing routines for (B) UE. He has AROM WFL which indicates that he will be able to move his (R) UE for bathing routine but due to strength and decreased functional activity tolerance he required rest breaks with AROM for bathing routine. He was able to cross his midline but requires mod vc. Hand/eye coordination is lacking and requires vc throughout. DRESSING sitting in bed OT assessed pts LE dressing which he was able to (I) don and doff his (R) sock, pt requires max (A) for don and doffing (L) sock. TOILETING NT EATING sitting in bed (I) BALANCE: Static sitting Good Dynamic Sitting Good SPECIAL TESTS: Daily Activity Limitations Standardized Measure [facility] AM -PAC ?6 clicks? Daily Activity Inpatient Short Form: Raw score: 21 Standardized score: 44.27 CMS score: 32.79% INFORMED CONSENT/EDUCATION: Pt instructed in purpose of OT Consult and plan of care. ASSESSMENT: Patient is a 70-year-old male referred to occupational therapy services with diagnosis of suspected CVA. Patient presents with clinical signs and symptoms consistent with dx, as demonstrated by the following impairment level findings/functional limitations: Decreased strength in (R) UE affecting his functional (I) in his LE dressing and bathing, decreased gross and fine motor control, slight edema in his (R) UE, slight (R) sided neglect, decreased functional mobility required for ADLs, decreased functional activity tolerance. AMPAC score 21 Patient is assessed as a Low 71194 complexity based on the following: History: see above Examination: see functional limitations as noted above Presentation: evolving Decision Making: AMPAC score 21 GOALS Goals x1 week 1. Eating pt will be (I) with eating sitting in the chair 2. Dressing sitting in chair (I) LE dressing 3. Bathing standing at sink (I) UE/LE 4. Toileting on toilet (I) PLAN OF CARE/TREATMENT PLAN: 1x/day, 5 days/ week x 1week Initiate Occupational Therapy Services for bathing, dressing, grooming, toileting, eating, transfer training. DISCHARGE RECOMMENDATIONS OT recommends that pt return home with HH services when medically cleared per MD. TREATMENT TIME/MINUTES/CODES 65517, [id number], 25 minutes (07:10) Eve Leo, OTR/L [facility] [place]
[2020-11-24 07:52] LABS: Folate 5.8 ng/mL (8.6-20.0)
[2020-11-24] MEDS: Clopidogrel 75 MG TAB PO (08:01)
[2020-11-24] MEDS: Aspirin E.C. 81 MG TABEC PO (08:01)
[2020-11-24 08:04] LABS: Anion Gap 5.3 mmol/L (3-11); BUN 34 mg/dL (7-18); CO2 27.7 mmol/L (21.0-32.0); Calcium 9.2 mg/dL (8.5-10.1); Calculated LDL 101 mg/dL (<100); Chloride 109 mmol/L (98-107); Cholesterol 164 mg/dL (<200); Estimated GFR 20.85 (mL/min/1.73m2); Ferritin 416 ng/mL (26-388); Glucose 115 mg/dL (74-106); HDL Cholesterol 32 mg/dL (40-60); Magnesium 2.1 mg/dL (1.8-2.4); Potassium 3.7 mmol/L (3.5-5.1); Sodium 142 mmol/L (136-145); Triglyceride 156 mg/dL (<150); Vitamin B12 216 pg/mL (193-986)
--- NOTE | 2020-11-24 08:14 | DI.US_ITS ---
APPROVED REPORT EXAM: Comprehensive 2D, Doppler, and color-flow Echocardiogram Patient Location: In-Patient Room/Bed: [facility] Collating Machine Operator: Annia Hightower RDCS (AE) Indications: CVA Echo Enhancing Agent Indication: Rule out Shunt Agent(s) / Amount(s) Used: Agitated Saline 30.0 cc Comments: Contrast study was performed with 3 IV injections of 10ccs of agitated normal saline, at [facility], with cough and post valsalva maneuver. Negative contrast study for shunt flow. Other Information Study Quality: Adequate. Technically limited study due to inability to position patient exam done sup ine. Conclusion Normal left ventricular wall thickness and chamber size. Estimated ejection fraction is 60 to 65%. There are no segmental wall motion abnormalities Normal right ventricular size and systolic function The atria are normal in size. There is no evidence of interatrial shunting with agitated saline Sclerotic trileaflet aortic valve without stenosis or regurgitation Moderate mitral annular calcification, trace mitral regurgitation Dilated ascending aorta measuring 3.96 cm Wall motion Left Ventricle The left ventricle is normal size. The left ventricular systolic function is normal. The left ventric ular ejection fraction is within the normal range. There is normal left ventricular wall thickness. T here is normal LV segmental wall motion. There is no ventricular septal defect visualized. LVEF is 60 -65%. Right Ventricle The right ventricle is normal size. The right ventricular systolic function is normal. Atria The left atrium size is normal. The right atrium size is normal. The interatrial septum is intact wit h no evidence for an atrial septal defect. Saline bubble contrast intravenous injection does not demo nstrate PFO. Aortic Valve The Aortic valve is sclerotic. Aortic valve is trileaflet. There is no aortic valvular stenosis. No a ortic regurgitation is present. Mitral Valve Moderate mitral annular calcification. No evidence of mitral valve stenosis. Trace mitral regurgitati on. Tricuspid Valve The tricuspid valve is normal in structure. There is no tricuspid valve stenosis. Trace tricuspid reg urgitation. Unable to assess PA pressure. Pulmonic Valve The pulmonary valve is normal in structure. There is no pulmonic valvular stenosis. There is no pulmo misty valvular regurgitation. Great Vessels The aortic root is normal in size. The ascending aorta is mild to Aortic arch is not well visualized. moderately dilated. IVC is normal in size and collapses >50% with inspiration. Pericardium There is no pericardial effusion. Prominent anterior epicardial fat pad is present. 2D Dimensions IVSD d PLAX 0.97 cm M: 0.6-1.2 LV Vol A2C d MOD 67.4 mL LVPW d PLAX 0.96 cm M: 0.6 - 1.2 LV Vol A4C d MOD 68.3 mL LVID d PLAX 4.28 cm M: 4.2 - 5.8 LA vol/ BSA A2C s A-L 32.7 mL/m2 LVDs 3.00 cm M: 2.5 - 4.0 LA vol/ BSA A4C s A-L 21.1 mL/m2 Ao Root d 3.14 cm M: 3.1 - 3.7 LA Vol/ BSA Biplane s A-L 27.3 mL/m2 RA Area A4C 11.71 cm2 LA Area A4C s MOD 15.72 cm2 RA Vol/ BSA A4C s A-L 14.7 mL/m2 LA Area A2C s MOD 20.31 cm2 Ao Asc Diam d 3.96 cm M: 2.6 - 3.4 LV EF A4C MOD 58.5 % LV EF Teichholz 57.3 % LV EF A2C MOD 58.0 % LVEF (Bell's) 56.58 % M: 52 - 72 LV EF Biplane MOD 56.6 % LV Volume 53.30 mL M: 62 - 150 SV 38.32 mL LV Volume Index 30.63 mL/m2 M: 34 - 74 SV Index 21.99 mL/m2 LV Vol Biplane MOD 67.7 mL FS 29.80 % M-Mode TAPSE 1.93 cm (M/F) >1.7 LV Diastology MV E' medial 0.070 (>0.07 m/s) E/A Ratio 1.0 LV E/e MED 14.15 (<14) MV E Vmax 1.00 (0.4-1.3 m/s) MV E' lateral 0.066 (>0.1 m/s) MV A Vmax 1.05 (0.4-1.3 m/s) LV E/e LAT 15.00 (<14) MV E/A Ratio 0.95 MV E/E' medial 14.17 MV E/E' lateral 15.00 Aortic Valve LVOT Area 3.08 cm2 AoV Area Vmax 2.18 cm2 LVOT Vmax 1.08 m/s AoV Area/ BSA (Vmax) 1.25 cm2/m2 LVOT Mean Real. 0.67 m/s ARLENE Mean Real. 2.08 cm2 LVOT Peak Grad 4.7 mmHg ARLENE Mean Real. Index 1.19 cm2/m2 LVOT Mean Grad 2.2 mmHg LVOT VTI 0.270 m LVOT Diam s 1.95 cm AoV Vmax 1.53 m/s Velocity Ratio 0.70 AoV Mean Real. 1.00 m/s AoV Peak Grad 9.4 mmHg LVOT SV 83.16 mL AoV Mean Grad 4.7 mmHg AoV VTI 0.304 m AoV Area VTI 2.74 cm2 AoV Area/ BSA (VTI) 1.57 cm/m2 Mitral Valve MV DT 215 (160-240 msec) MV PHT 62 msec MV Area PHT 3.52 cm2 MV VTI 0.472 m MV Area VTI 1.76 (4.0-6.0 cm2) Pulmonary Valve PV Vmax 0.99 (0.5-1.5 m/s) RVOT Peak Gr. 1.87 mmHg PV Peak Grad 3.9 mmHg RVOT Mean Gr. 1.10 mmHg PV Mean Grad 2.0 mmHg RVOT VTI 0.155 m PV VTI 0.203 m RVOT Vmax 0.68 m/s
[2020-11-24] MEDS: Cyanocobalamin 1000 MCG/ML VIAL IM/SC (09:24)
[2020-11-24] MEDS: Folic Acid 1 MG TAB PO (09:24)
[2020-11-24] MEDS: Famotidine 20 MG TAB PO (11:16)
--- NOTE | 2020-11-24 11:50 | DI.MRI_ITS ---
Exam(s) MR ANGIO NECK WO EXAM: MR ANGIO NECK WO CLINICAL HISTORY: CVA. TECHNIQUE: Multiplanar multisequence MRA of the Neck was performed. COMPARISON: No exams were available for comparison FINDINGS: Common Carotid: Right: No dissection, occlusion or significant stenosis. Left: No dissection, occlusion or significant stenosis. External Carotid: Right: No evidence of occlusion or significant stenosis. Left: No evidence of occlusion or significant stenosis. Internal Carotid: Right: No dissection, occlusion or significant stenosis. Left: No dissection, occlusion or significant stenosis. Vertebral Artery: Right: No dissection, occlusion or significant stenosis. Left: No dissection, occlusion or significant stenosis. The visualized paraspinal soft tissues are unremarkable. IMPRESSION: No evidence of dissection, occlusion or significant stenosis. DATA REPOSITORY:
--- NOTE | 2020-11-24 11:59 | PHA.REVIEW ---
Pharmacy Admission Review - Admission Clinical Review (Last Reviewed 11/23/20 @ 21:00 by Elizabeth Romeo MD) Right hemiparesis (Acute) Discharge planning issues (Acute) DVT prophylaxis (Acute) Hypercalcemia (Acute) Hypomagnesemia (Acute) Normocytic anemia (Acute) metformin Adverse Reaction (Severe, Verified 11/23/20 10:40) diarrhea Ybkggul-HTE-GkB Reductase Inhibitor [Iychjhd-Zlt-Vou Reductase Inhibitor] Adverse Reaction (Severe, Unverified 11/23/20 10:40) myalgias pantoprazole Adverse Reaction (Intermediate, Verified 11/23/20 10:40) nausea and vomiting Resuscitation Status Full Code Height 5 ft Weight 77.111 kg - Renal Dosing Renal Dosing: BUN 34 mg/dL (7-18) H 11/24/20 06:23 Creatinine 3.0 mg/dL (0.70-1.30) H 11/24/20 06:23 Medications needing adjustments: Intervened (eCrCl 20 ml/min (using adj bw), pepcid is renally dosed) - Anticoagulation Anticoagulation: Hgb 9.5 g/dL (13.5-17.5) L 11/24/20 06:23 Hct 28.4 % (40.0-50.0) L 11/24/20 06:23 Plt Count 154 10^3/uL (130-400) 11/24/20 06:23 Creatinine 3.0 mg/dL (0.70-1.30) H 11/24/20 06:23 DVT Prophylaxis: Reviewed Medications: Heparin - Opiate Usage Evaluate Pain Scale/Pains Meds: Reviewed (oxycodone 5mg prn) Scheduled Bowel Reg ordered if on Opiates?: No (colace prn only, will mon) - Relevant Labs Sodium 142 mmol/L (136-145) 11/24/20 06:23 Potassium 3.7 mmol/L (3.5-5.1) 11/24/20 06:23 Chloride 109 mmol/L (98-107) H 11/24/20 06:23 Magnesium 2.1 mg/dL (1.8-2.4) 11/24/20 06:23 Electrolytes, C-Reactive P, ESR: Reviewed - DM Control DM Control: Glucose 115 mg/dL (74-106) H 11/24/20 06:23 Hemoglobin A1c 6.5 % (<5.7) H 11/24/20 06:23 Finger Stick Blood Glucose 104 Finger Stick Blood Glucose 104 Finger Stick Blood Glucose 104 Insulin Dosing: Reviewed - Heart Failure/AL Heart Failure/AL: Troponin I < 0.05 ng/mL (<0.06) 11/23/20 14:05 EF%, ALISA's, B-Blockers, Diuretics: Reviewed - BP Control BP Control: Blood Pressure 131/75 Blood Pressure 138/75 Blood Pressure 137/69 If elevated: Reviewed - Qtc Review If Elevated: N/A - IV to PO Switch IV Medications: Reviewed - Home Meds Home Med List reviewed: Intervened Relevent Home Meds Not ordered & why?: Discontinued amlodipine and allopurinol after discussion with patient's outpatient pharmacist and the attending -- he never picked up amlodipine when it was originally prescribed in March by his PCP and stopped taking allopurinol as well. Per his pharmacy he has been regularly filling only his diabetic medication only. - Current meds Current Medication Order Review: Reviewed
[2020-11-24 12:58] LABS: HGB 10.3 g/dL (13.5-17.5)
--- NOTE | 2020-11-24 14:11 | CHAPLAIN ---
Alli was sitting up in the chair when I visited. He was very pleasant and easily engaged in a conversation. 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 His works as a caregiver in [facility] and will be stopping by this afternoon to visit Alli.
--- NOTE | 2020-11-24 14:13 | W.INDIABCONS ---
Date of service: 11/24/20 Time of Service: 14:13 Diabetes Inpatient Consult DESCRIPTION/ASSESSMENT: Diabetes education consult noted for pt. 70 yr old male admitted for acute CVA with PMH significant for IDDM, chronic renal ins.(stage III), normocytic anemia/low folate as it relates to nutritional status. Good current po intake and weight stable with A1C 6.5 today indicating good glu control. Pt states no concerns today with appetite or need of nutrition education (?been living with it for years?). Current nutrition needs assessed at 1565 kcals (REE X 1.3 PAL), 35-47g protein (.6-.8 g/Kg due to renal ins.) and 1565 mL fluid (1 mL/kcal). Diagnosis: Obese AEB current BMI >30. Intervention: Continue po supplements for folic acid and B12 for anemia and low folate status. Monitoring/evaluation Will monitor pt for changes in po intake, weight and nutrition-related labs. This note created by Vitor Alarcon NDTR (management retail intern) Time Spent in Nutritional Counseling and Treatment: 20
--- NOTE | 2020-11-24 15:07 | PT.INTREAT ---
Date of service: 11/24/20 Time of Service: 07:50 PT Notes Visit Reasons: Suspected acute CVA Inpatient Physical Therapy Treatment Note [facility] Date: 11/24/2020 PRECAUTIONS: Fall, activity as tolerated, R-sided weakness SUBJECTIVE: Alli is pleasant and agreeable to participating in PT. He states that he is experiencing significant weakness on his R side, making it difficult to complete functional mobility tasks. OBJECTIVE: PAIN: In a.m., patient c/o significant R whole foot pain with weight bearing and ankle pump exercise, BED MOBILITY/TRANSFERS Supine-sit: SBA with HOB at 30 degrees Sit-supine: Min A with HOB flat in a.m.; SBA with HOB flat in p.m. Sit-stand: CGA x2 Stand-sit: SBA in a.m.; CGA x2 in p.m. Bed-Chair: CGA x2 Chair-bed: CGA x2 GAIT Assistive Device: FWW Weight bearing: Full Assist: CGA x2 in a.m.; Min A x2 in p.m. Distance: 10' + 5' in a.m.; 15' in p.m. Deviation: Lean to R, tactile cues for FWW mechanics, R foot pain, dizziness in a.m. THEREX: Patient was instructed in a seated LE and UE strengthening program in a.m., and a supine LE strengthening and stabilization program, as per flow sheet. He demonstrates weakness on R LE and UE ASSESSMENT: Patient tolerated session with complaint of R foot pain with weight bearing and ankle pump exercise in a.m.. He was able to tolerate a progression in gait distance with FWW support, although requires tactile assist for FWW mechanics and leans to R. He requires verbal cueing to increase step height and length on right. He is beginning to demonstrate signs of filipe-neglect, requring verbal and occasional tactile cueing for use of R hand. PLAN: Continue with global strengthening and general conditioning for improved mobility. TREATMENT CODE/TIME: Session 1: 25 minutes; 87891, [id number] (07:50) Session 2: 19 minutes; 61711 (14:13)
--- NOTE | 2020-11-24 15:53 | W.PM.PROGNOT ---
Date of Service Date of service: 11/24/20 Time of Service: 15:53 Assessment and Plan Assessment and plan (1) Acute CVA (cerebrovascular accident): Status: Suspected (2) Right hemiparesis: Status: Acute (3) Vertigo: Status: Chronic Assessment and plan: Mr. Edwards is a 70 year-old, left-handed man admitted with the following: #1. Right hemiparesis secondary to acute ischemic stroke. Etiology of stroke is due to severe intracerebral vascular disease. He should continue clopidogrel 75mg daily + aspirin 81mg daily x 30 days, and then continue aspirin 81mg daily alone. He had previous ADRs to statin trial x1. Discussed re-trial, however, he had significant myalgias previously and given current pain he would like to hold off on trial until outpatient care. Goal LDL <70. Goal SBP 120-140. Goal A1c <7. We discussed diet and exercise changes to reduce stroke risk. We discussed increased risk of depression/anxiety following stroke. PT/OT. #2. Positional vertigo. He has acute on chronic dizziness. This would not be related to his stroke. Recommend vestibular PT. Meclizine prn. #3. Right leg spasms. Today noting significant diffuse right foot pain. No obvious swelling or redness. Had several falls and wonders if he hurt it. Has h/o gout. Continue work-up/treatment as per primary team. He should follow-up in the neurology clinic in 4-6 weeks. Subjective Subjective Interval history since last seen: Mr. Edwards notes slight improvement in right hemiparesis. Trouble ambulating complicated by the previously described right leg spasms, however, now noting significant pain in the whole foot which is causing the spasms. Pain and spasms resolve with oxycontin. -MRI brain w/o (11/24/20): multiple small foci of acute ischemia in the left frontal lobe in the [place] distribution. Noted old right pontine stroke and multiple small lacunes in the right BG and caudate. Moderate chronic vascular changes. I reviewed these images personally and this is my personal interpretation. -MRA head (11/24/20): very diminutive intracerebral vasculature consistent with diffuse atherosclerosis. I reviewed these images personally and this is my personal interpretation. -MRA neck (11/24/20): no significant stenosis. I reviewed these images personally and this is my personal interpretation. -TTE (11/24/20): EF 60-65%, no wall motion abnormalities. LA normal. -Labs: A1c 6.5, LDL 101, B12 216, Folate 5.8 Exam Narrative Exam Narrative: Physical Exam: Constitutional: Patient of apparent stated age, well nourished, well developed, moderate distress Neuro: MS/Language/Speech: Alert, oriented, clear language (fluency and comprehension), no dysarthria Motor: Normal bulk and tone. FMM intact, no pronator drift. 5/5 strength in bilateral upper and lower extremities except 4+/5 right triceps and 4+/5 right hip flexor - distal RLE not tested due to pain. Coordination: Finger to nose performed without dysmetria Objective Last Vital Signs Temp 98.1 F 11/24/20 11:19 Pulse 62 11/24/20 11:19 Resp 16 11/24/20 11:19 BP 131/75 11/24/20 11:19 Pulse Ox 97 11/24/20 11:19 Laboratory Results - last 24 hr 11/24/20 11/24/20 11/24/20 06:23 06:23 06:23 WBC 7.94 RBC 3.18 L Hgb 9.5 L Hct 28.4 L MCV 89.3 MCH 29.9 MCHC 33.5 RDW 13.7 Plt Count 154 MPV 10.1 Sodium 142 Potassium 3.7 Chloride 109 H Carbon Dioxide 27.7 Anion Gap 5.3 BUN 34 H Creatinine 3.0 H Estimated GFR/1.73 m2 20.85 Glucose 115 H Hemoglobin A1c 6.5 H Uric Acid Calcium 9.2 Magnesium 2.1 Iron TIBC Transferrin % Sat Ferritin 416 H Triglycerides 156 H Total Cholesterol 164 LDL Cholesterol, Calc 101 H HDL Cholesterol 32 L Vitamin B12 216 Folate 11/24/20 11/24/20 11/24/20 06:23 06:23 06:23 WBC RBC Hgb Hct MCV MCH MCHC RDW Plt Count MPV Sodium Potassium Chloride Carbon Dioxide Anion Gap BUN Creatinine Estimated GFR/1.73 m2 Glucose Hemoglobin A1c Uric Acid 8.0 H Calcium Magnesium Iron 41 L TIBC 238 L Transferrin % Sat 17 L Ferritin Triglycerides Total Cholesterol LDL Cholesterol, Calc HDL Cholesterol Vitamin B12 Folate 5.8 L 11/24/20 12:52 WBC RBC Hgb 10.3 L Hct 31.0 L MCV MCH MCHC RDW Plt Count MPV Sodium Potassium Chloride Carbon Dioxide Anion Gap BUN Creatinine Estimated GFR/1.73 m2 Glucose Hemoglobin A1c Uric Acid Calcium Magnesium Iron TIBC Transferrin % Sat Ferritin Triglycerides Total Cholesterol LDL Cholesterol, Calc HDL Cholesterol Vitamin B12 Folate PAWSS Have you Been Recently Intoxicated or Drunk Within the Last 30 days?: No Have you Ever Experienced Previous Episodes of Alcohol Withdrawal?: No Have you ever Experienced Withdrawal Seizures?: No Have you ever Experienced Delirium Tremens(DT)s?: No Have you ever undergone Alcohol Rehabilitation Treatment (i.e, inpt ot outpatient treatment programs)?: No Have you ever Experienced Blackouts?: No Have you ever Combined Alcohol with other Downers within the last 90 days?: No Have you ever Combined Alcohol with any other Substance of Abuse during the last 90 days?: No Positive Blood Alcohol level on Presentation? [PCS.BAL]: No Evidence of Increased Autonomic Activity (i.e. HR>120, tremor, sweating, agitation, nausea)?: No Result: 0
--- NOTE | 2020-11-24 16:54 | CMPROGNOTE_ITS ---
Care Management Progress Note S/O: Alli remains pleasant in interaction and fully engaged with this clinical writer. He continues to have right sided weakness and he worked with PT and OT today, both are recommending home health services upon discharge. Alli met with Dr. Torres who reviewed acute ischemic stroke information including likelihood of increased anxiety and depression following a stroke. Nutrition recommends folic acid and B12 supplements for low folate and anemia, as well. CM continues to follow. A: 70 year old male admitted to [facility] 11/23/20 for acute CVA P: Alli will return home when ready per MD. He will follow up with his PCP, neurology and his plan of care as prescribed. Anticipate he will have new orders for [facility] PT/OT through [facility]. He will transport via private vehicle with his , Catherine.
--- NOTE | 2020-11-24 20:12 | PGE_ITS ---
Date of Service Date of service: 11/24/20 Time of Service: 20:12 Assessment and Plan Assessment and plan (1) Acute CVA (cerebrovascular accident): Status: Suspected Assessment and plan: Discussed with Dr Ventura - she feels that these multiple infarcts are more related to his severe vascular disease in the brain rather than being embolic. Will continue dual antiplatelet therapy. The patient is allergic to statins. Will try neurontin for what appears to be neuropathic pain, but it is not likely to be related to his CVA. Will require SNF (2) Right foot pain: Status: Acute Assessment and plan: Check XR in am. Trial neurontin (3) Normocytic anemia: Status: Acute Assessment and plan: Evidence of B12 and folic acid deficiency. Replete (4) Vertigo: Status: Chronic Assessment and plan: PT consulted. (5) Chronic renal insufficiency, stage III (moderate): Status: Chronic Assessment and plan: Cr near baseline. D/c IVF (6) IDDM (insulin dependent diabetes mellitus): Status: Chronic Assessment and plan: Cover with SSI (7) Hypomagnesemia: Status: Resolved Assessment and plan: Recheck in am (8) Hypercalcemia: Status: Resolved Assessment and plan: resolved D/c IVF. (9) DVT prophylaxis: Status: Acute Assessment and plan: SC heparin (10) Discharge planning issues: Status: Acute Assessment and plan: Full code Subjective Subjective Interval history since last seen: Mr Edwards states that his whole right foot hurts. He thinks he may have fallen on it. He connect it also to the spasms in his right leg. He says that the oxycodone really helps with it, but that the pain in the foot is making his leg spasm. Endorses dizziness with certain positions, but not at the time of our exam. Denies chest pain, shortness of breath, nausea. Would like to wait until tomorrow am to get the XR of his foot. Agrees to try neurontin. Exam Narrative Exam Narrative: General: Pleasant Obese male, A&Ox3, laying comfortably in bed HEENT:EOMI, MMM, no nystagmus Cardiovascular: RRR, no m/r/g Lungs: CTAB Gastrointestinal: soft, nontender, nondistended Extremities: R foot does appear slightly puffy, which it was not yesterday, no ecchymosis or erythema, no edema/clubbing/cyanosis/lesions LLE's, 1+ pedal pulse B Objective Last Vital Signs Temp 36.7 C 11/24/20 19:57 Pulse 65 11/24/20 19:57 Resp 18 11/24/20 19:57 BP 121/69 11/24/20 19:57 Pulse Ox 98 11/24/20 19:57 Laboratory Results - last 24 hr 11/24/20 11/24/20 11/24/20 06:23 06:23 06:23 WBC 7.94 RBC 3.18 L Hgb 9.5 L Hct 28.4 L MCV 89.3 MCH 29.9 MCHC 33.5 RDW 13.7 Plt Count 154 MPV 10.1 Sodium 142 Potassium 3.7 Chloride 109 H Carbon Dioxide 27.7 Anion Gap 5.3 BUN 34 H Creatinine 3.0 H Estimated GFR/1.73 m2 20.85 Glucose 115 H Hemoglobin A1c 6.5 H Uric Acid Calcium 9.2 Magnesium 2.1 Iron TIBC Transferrin % Sat Ferritin 416 H Triglycerides 156 H Total Cholesterol 164 LDL Cholesterol, Calc 101 H HDL Cholesterol 32 L Vitamin B12 216 Folate 11/24/20 11/24/20 11/24/20 06:23 06:23 06:23 WBC RBC Hgb Hct MCV MCH MCHC RDW Plt Count MPV Sodium Potassium Chloride Carbon Dioxide Anion Gap BUN Creatinine Estimated GFR/1.73 m2 Glucose Hemoglobin A1c Uric Acid 8.0 H Calcium Magnesium Iron 41 L TIBC 238 L Transferrin % Sat 17 L Ferritin Triglycerides Total Cholesterol LDL Cholesterol, Calc HDL Cholesterol Vitamin B12 Folate 5.8 L 11/24/20 12:52 WBC RBC Hgb 10.3 L Hct 31.0 L MCV MCH MCHC RDW Plt Count MPV Sodium Potassium Chloride Carbon Dioxide Anion Gap BUN Creatinine Estimated GFR/1.73 m2 Glucose Hemoglobin A1c Uric Acid Calcium Magnesium Iron TIBC Transferrin % Sat Ferritin Triglycerides Total Cholesterol LDL Cholesterol, Calc HDL Cholesterol Vitamin B12 Folate Objective Narrative Objective Narrative: MRI brain: Multiple areas of restricted diffusion in the left parietal lobe consistent with acute infarcts. Embolic etiology should be considered. MRA brain: No evidence of large vessel occlusion or significant stenosis. MRA neck: No evidence of dissection, occlusion or significant stenosis Echo: Normal left ventricular wall thickness and chamber size. Estimated ejection fraction is 60 to 65%. There are no segmental wall motion abnormalit ies Normal right ventricular size and systolic function The atria are normal in size. There is no evidence of interatrial shunting with agitated saline Sclerotic trileaflet aortic valve without stenosis or regurgitation Moderate mitral annular calcification, trace mitral regurgitation Dilated ascending aorta measuring 3.96 cm PAWSS Have you Been Recently Intoxicated or Drunk Within the Last 30 days?: No Have you Ever Experienced Previous Episodes of Alcohol Withdrawal?: No Have you ever Experienced Withdrawal Seizures?: No Have you ever Experienced Delirium Tremens(DT)s?: No Have you ever undergone Alcohol Rehabilitation Treatment (i.e, inpt ot outpatient treatment programs)?: No Have you ever Experienced Blackouts?: No Have you ever Combined Alcohol with other Downers within the last 90 days?: No Have you ever Combined Alcohol with any other Substance of Abuse during the last 90 days?: No Positive Blood Alcohol level on Presentation? [PCS.BAL]: No Evidence of Increased Autonomic Activity (i.e. HR>120, tremor, sweating, agitation, nausea)?: No Result: 0
[2020-11-24] MEDS: Gabapentin 100 MG CAP PO (20:36)
[2020-11-24] MEDS: Insulin Aspart 300 UNITS/3 ML PEN SC (21:59)
[2020-11-24] MEDS: Normal Saline Flush 10 ML SYR IVP (22:00)
[2020-11-24] MEDS: Acetaminophen 325 MG TAB PO (22:04)
[2020-11-25] VITALS (10 sets, daily range): BP systolic 103–167; BP diastolic 64–77; PULSE 51–62; RESP 16–18; TEMP 36.3–36.7; O2SAT 95–98
[2020-11-25] MEDS: oxyCODONE 5 MG TAB PO ×2 (04:15→10:15)
[2020-11-25] MEDS: Folic Acid 1 MG TAB PO (07:40)
[2020-11-25] MEDS: Gabapentin 100 MG CAP PO ×3 (07:40→19:28)
[2020-11-25] MEDS: Aspirin E.C. 81 MG TABEC PO (07:40)
[2020-11-25] MEDS: Clopidogrel 75 MG TAB PO (07:40)
[2020-11-25] MEDS: Heparin 5,000 UNITS/ML VIAL 5000 UNITS SC ×2 (07:41→16:38)
[2020-11-25] MEDS: Cyanocobalamin 500 MCG TAB 1000 MCG PO (07:41)
--- NOTE | 2020-11-25 07:52 | OTTR_ITS ---
Date of service: 11/25/20 Time of Service: 07:53 Occupational Therapy Notes Occupational Therapy Inpatient Treatment Note Date: 11/25/20 PRECAUTIONS: Fall, standard, Full SUBJECTIVE: Pt was lying in bed when OT arrived. OT discuses with pt fabrication of a custom thermoplastic orthosis for a resting hand splint to his (R) hand to help with edema and decrease his risk of contractures. Pt denies this at this time. OT does feel that this would be beneficial for pt but he is not interested in this time. OT will continue to assess this. 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 TREATMENT CODES/TIME: No charge for todays session, 10 minutes [facility]JIT [facility]ale[facility]
--- NOTE | 2020-11-25 08:31 | DI.RAD_ITS ---
Exam(s) XR FOOT RT COMPLETE EXAM: XR FOOT RT COMPLETE CLINICAL HISTORY: R foot pain, fall TECHNIQUE: COMPARISON: No exams were available for comparison FINDINGS: Three views were obtained. There are mild hobson articular degenerative changes of the joints of the fo ot. There is no evidence of acute fracture or dislocation. IMPRESSION: RADIATION DOSE DELIVERED: Total DLP
--- NOTE | 2020-11-25 09:32 | PDOC.CMPRO ---
- If Service Date Differs Date of service: 11/25/20 Time of Service: 09:32 Care Management Progress Note S/O: Alli continues to have right sided weakness and is currently requiring a max 2-assist. CM met with Alli who struggled to re-position himself in his recliner. LNAs came in to support Alli in re-positioning. SNF discussed; Alli agreeable to referrals to all local facilities. CM UC faxed referrals to [facility] (not currently open to admissions), [facility], [facility], [facility], [facility], [facility], [facility]. [facility] responded to report a prior authorization would be submitted to Alli's BC/BS plan for hopeful admit on Saturday. [facility] reported they would have a determination on 11/29/20. [facility] reported being closed to admissions at this time. CM continues to follow. Alli met with Dr. Torres who reviewed acute ischemic stroke information including likelihood of increased anxiety and depression following a stroke. Nutrition recommends folic acid and B12 supplements for low folate and anemia, as well. CM continues to follow. A: 70 year old male admitted to [facility] 11/23/20 for acute CVA P: Alli will discharge to SNF when a bed becomes available. He will follow up with his PCP, neurology and his plan of care as prescribed. He will transport via private vehicle with his , Catherine. SNF [facility]: prior authorization submitted to Alli's BC/BS plan for hopeful admit on Saturday [facility]: closed to admissions at this time [facility]: pending review [facility]: pending review [facility]: determination on 11/29/20 [facility]: pending review [facility]: closed to admissions at this time [facility]: pending review
[2020-11-25 10:44] LABS: Lyme Ab w Rflx to Lyme Confirm Negative (Negative)
--- NOTE | 2020-11-25 15:04 | PT.INTREAT ---
Date of service: 11/25/20 Time of Service: 08:03 PT Notes Visit Reasons: Suspected acute CVA Inpatient Physical Therapy Treatment Note [facility] Date: 11/25/2020 PRECAUTIONS: Fall, activity as tolerated, R-sided weakness SUBJECTIVE: Alli is pleasant and agreeable to participating in PT. He reports improvements in his functional mobility today compared to yesterday. OBJECTIVE: PAIN: No c/o pain BED MOBILITY/TRANSFERS: Refused OOB in afternoon due to fatigue. Supine-sit: I with HOB at 40 degrees Sit-stand: CGA Stand-sit: CGA GAIT Assistive Device: FWW Weight bearing: Full Assist: CGA x2 Distance: ~30' Deviation: Verbal cues for FWW mechanics, R LE fatigue, cues for increased step height and length on R THEREX: Patient was instructed in a supine LE strengthening and stabilization program, as per flow sheet. He requires cueing to control movement of LE with exercise. ASSESSMENT: Patient tolerated session with complaint of increased fatigue. He was able to tolerate a progression in gait distance with FWW support, although requires verbal cues for FWW mechanics and increased step height and length with R LE. He continues to demonstrate signs of filipe-neglect, requiring verbal and occasional tactile cueing for use of R hand. PLAN: Continue with global strengthening and general conditioning for improved mobility. TREATMENT CODE/TIME: Session 1: 15 minutes; 35414 (08:03) Session 2: 17 minutes; [id number] (14:17)
[2020-11-25] MEDS: Docusate Sodium 100 MG CAP PO (19:34)
--- NOTE | 2020-11-25 19:35 | W.PM.PROGNOT ---
Date of Service Date of service: 11/25/20 Time of Service: 19:35 Assessment and Plan Assessment and plan (1) Acute CVA (cerebrovascular accident): Status: Suspected Assessment and plan: Discussed with Dr Ventura - she feels that these multiple infarcts are more related to his severe vascular disease in the brain rather than being embolic. Will continue dual antiplatelet therapy x 30 days, then asa alone. The patient is allergic to statins. Continue neurontin - possibly working synergistically with oxycodone for the RLE pain which seems to coincide in timing with the strokes.. Will require SNF (2) Right foot pain: Status: Acute Assessment and plan: No fx on XR. Podiatry consulted. UA elevated, but no evidence of gout clinically. Continuel neurontin (3) Normocytic anemia: Status: Acute Assessment and plan: Evidence of B12 and folic acid deficiency. Replete (4) Vertigo: Status: Chronic Assessment and plan: PT consulted. (5) Chronic renal insufficiency, stage III (moderate): Status: Chronic Assessment and plan: Cr near baseline. (6) IDDM (insulin dependent diabetes mellitus): Status: Chronic Assessment and plan: Cover with SSI (7) Hypomagnesemia: Status: Resolved Assessment and plan: Recheck in am (8) Hypercalcemia: Status: Resolved Assessment and plan: resolved D/c IVF. (9) DVT prophylaxis: Status: Acute Assessment and plan: SC heparin (10) Discharge planning issues: Status: Acute Assessment and plan: Full code Will need SNF. Subjective Subjective Interval history since last seen: States he is feeling a lot better today. States that he has not had any of the R leg spasms since 4 am when he had his last oxycodone. The foot is less painful. The dizziness persists when he walks, and he notices that he has been going to the right. Denies chest pain, shortness of breath, nausea. Doing better. Exam Narrative Exam Narrative: General: Pleasant Obese male, A&Ox3, laying comfortably in bed HEENT:EOMI, MMM, no nystagmus Cardiovascular: RRR, no m/r/g Lungs: CTAB Gastrointestinal: soft, nontender, nondistended Extremities: R foot less edematous today than yesterday, no ecchymosis or erythema, no edema/clubbing/cyanosis/lesions LLE's, 1+ pedal pulse B Objective Last Vital Signs Temp 36.6 C 11/25/20 15:49 Pulse 54 L 11/25/20 15:49 Resp 17 11/25/20 15:49 BP 113/66 11/25/20 15:49 Pulse Ox 97 11/25/20 15:49 Laboratory Results - last 24 hr 11/24/20 06:23 Lyme Disease Antibody Negative PAWSS Have you Been Recently Intoxicated or Drunk Within the Last 30 days?: No Have you Ever Experienced Previous Episodes of Alcohol Withdrawal?: No Have you ever Experienced Withdrawal Seizures?: No Have you ever Experienced Delirium Tremens(DT)s?: No Have you ever undergone Alcohol Rehabilitation Treatment (i.e, inpt ot outpatient treatment programs)?: No Have you ever Experienced Blackouts?: No Have you ever Combined Alcohol with other Downers within the last 90 days?: No Have you ever Combined Alcohol with any other Substance of Abuse during the last 90 days?: No Positive Blood Alcohol level on Presentation? [PCS.BAL]: No Evidence of Increased Autonomic Activity (i.e. HR>120, tremor, sweating, agitation, nausea)?: No Result: 0
--- NOTE | 2020-11-25 21:25 | POCOE_ITS ---
Date of service: 11/25/20 Time of Service: 21:26 History of Present Illness History of Present Illness Chief Complaint: Right foot and ankle pain status post fall Narrative: 70-year-old male who indicates he had a series of falls due to dizziness and weakness which culminated in a CVA with right hemiparesis. He indicates that he twisted his right foot at some point and that it has been extremely tender. He states that today he had almost no pain and that he has had significant improvement. [facility] Medical History Chronic pain syndrome Closed fracture of clavicle Diabetic macular edema (01/05/12) Dyspepsia (10/11/17) Essential hypertension (02/05/13) Family history of malignant neoplasm of prostate brother Fatigue Gastroparesis diabeticorum GERD (gastroesophageal reflux disease) Hyperlipidemia Moderate nonproliferative diabetic retinopathy (01/04/11) Optical expressions; severe NPDR; OU w/DME OD 2013 Referral to [facility] for evaluation. 01/05/2014: [facility] Eval Type II DM with diabetic retinopathy and macular edema with moderatate nonproliferative retinopathy. Phimosis (11/27/16) Presbyesophagus (04/11/17) Stricture and stenosis of esophagus Tinnitus Surgical History Extraction of cataract [facility] PROCEDURES Strabismus surgery as child Family History Mother , 70s RA (rheumatoid arthritis) CHF (congestive heart failure) Depression Heart disease Father , 70s Alcohol abuse Psoriasis Brother , 70s Diabetes Alcohol abuse Hyperlipidemia Myocardial infarction Neoplasm PROSTATE Sister , 70s No problems noted. Social History Smoking/Tobacco Use Status: Never Smoking risk assessment performed?: Yes Alcohol Intake: current Alcohol Intake frequency: 0-2 drinks per day Alcohol type: beer Drug use: Never Substance use type: does not use Caregiver/Support person: No Household members: spouse Housing: house Communication Needs: None current occupation: [employer] Pets and animals: No Sexually active: No Do you think of yourself as: straight/heterosexual Current gender identity: male What is your relationship status?: How often do you talk on the phone with friends or family?: once per week How often do you get together with friends or relatives?: twice per week How often do you attend roman catholic or oriental orthodox services?: decline to answer Do you belong to any clubs or organized social groups?: yes Panel score (0-1 are the most socially isolated patients): 3 What type of physical activity do you participate in: walking Duration: < 15 minutes/day Frequency: 1-2 times per week Shara/Voodoo: Lutheran Special shara needs: No Seatbelt use: always Helmet use: No Drive intox or ride w/intox hyster driver: No Do you feel safe in your relationship?: Yes Exam Narrative Exam Narrative: Alli is a 70-year-old male resting comfortably in bed. He is awake and alert and converses easily. Peripheral pulses are manually palpable at the ankles with +1 edema noted to the right foot along the anterior and anterior lateral aspect of the ankle and dorsum of the foot. Skin is grossly intact without bruising or ulceration. Toenails are currently unremarkable. Muscle groups are 5 out of 5 bilaterally although he does indicate that his right lower extremity weakens when he becomes fatigued. Skeletal exam was grossly benign across the forefoot region and midfoot. He has tenderness across the ankle joint anteriorly with a small effusion noted. No instability is noted. No crepitance. Neurologic exam, toes are downgoing. Radiographs have been obtained and no fractures were identified. Good visualization of the foot and ankle is appreciated. He does have diffuse c alcification of the pedal arteries. Impressions: Probable right foot and ankle strain secondary to fall and recovery. Plan: The edema and recent injury predisposes him to additional falls and precau tions should be undertaken including utilizing a walker as needed and appropriate shoe gear. He may benefit from a soft ankle brace to provide compression and stability. Fortunately, he does report the absence of pain starting today on weight bearing which bodes well for full recovery. Thank you for this consultation I'll be happy to reassess if symptoms change. Results Last Vital Signs Temp 36.5 C 11/25/20 20:07 Pulse 62 11/25/20 20:07 Resp 18 11/25/20 20:07 BP 146/76 H 11/25/20 20:07 Pulse Ox 96 11/25/20 20:07 Labs Result diagrams: 11/24/20 12:52 11/24/20 06:23 Labs: Laboratory Results - last 24 hr 11/24/20 06:23 Lyme Disease Antibody Negative
[2020-11-26] VITALS (8 sets, daily range): BP systolic 151–166; BP diastolic 76–80; PULSE 56–65; RESP 16–18; TEMP 36.5–36.8; O2SAT 96–99
[2020-11-26] MEDS: Heparin 5,000 UNITS/ML VIAL 5000 UNITS SC ×3 (01:20→16:54)
[2020-11-26] MEDS: Normal Saline Flush 10 ML SYR IVP ×2 (06:49→19:10)
[2020-11-26 07:23] LABS: HCT 28.2 % (40.0-50.0); HGB 9.5 g/dL (13.5-17.5); MCH 29.9 pg (27.0-33.0); MCHC 33.7 % (32.0-36.0); MCV 88.7 fL (80-95); MPV 10.3 fL (8.0-11.0); Platelet Count 153 10^3/uL (130-400); RBC 3.18 10^6/uL (4.36-5.78); RDW 13.8 % (11.8-14.1); RDW-SD 44.7 fL; WBC 7.63 10^3/uL (4.4-10.8)
[2020-11-26] MEDS: Gabapentin 100 MG CAP PO ×3 (07:43→19:10)
[2020-11-26] MEDS: Clopidogrel 75 MG TAB PO (07:43)
[2020-11-26] MEDS: Aspirin E.C. 81 MG TABEC PO (07:43)
[2020-11-26] MEDS: Famotidine 20 MG TAB PO (07:44)
[2020-11-26] MEDS: Cyanocobalamin 500 MCG TAB 1000 MCG PO (07:44)
[2020-11-26] MEDS: Folic Acid 1 MG TAB PO (07:44)
[2020-11-26 09:18] LABS: Iron 45 ug/dL (65-175); Total Iron Binding Capacity 218 ug/dL (250-450); Transferrin Sat 21 % (20-55)
--- NOTE | 2020-11-26 09:34 | PT.INTREAT ---
PT Notes Visit Reasons: Suspected acute CVA 11/26/2020 SUBJECTIVE: Pt notes feeling better today than yesterday. Has some discomfort in the right ankle. Notes he has been doing some of his exercises in bed. Feels his R leg and arm are much stronger than yesterday. He would like to reconsider his options for discharge. He is quite concerned about going to rehab because of COVID. OBJECTIVE: TRANSFERS Supine to sit: I Sit to stand: CGA Stand to sit: CGA GAIT Device: FWW Weight bearing: Full Assist: CGA x 1 Distance: 30'x2 Deviation: Slight foot drop R, leans right at times THEREX: static balance activities including tandem stance and small LEOLA balance. Coordination exercises performed on the right including heel to alcala and finger to nose on the right. ASSESSMENT: Less assistance required during ambulation today. Does have one LOB with list to the right with only minor assist from this therapist for recovery. Pt would benefit from continued physical therapy efforts for improvement in balance and safety with gait. Will assist further distance ambulation tomorrow and possibly stair assessment. PLAN: Continue to progress functional gait and balance. Treatment time: 25 minutes [id number], [id number] Shivani Fragoso PTA Clinic location: [facility] [place], [place]
[2020-11-26] MEDS: Docusate Sodium 100 MG CAP PO (09:52)
[2020-11-26 09:54] LABS: Ferritin 496 ng/mL (26-388)
[2020-11-26] MEDS: Insulin Aspart 300 UNITS/3 ML PEN SC ×2 (12:09→21:37)
--- NOTE | 2020-11-26 15:07 | W.PM.PROGNOT ---
Date of Service Date of service: 11/26/20 Time of Service: 15:07 Assessment and Plan Assessment and plan (1) Acute CVA (cerebrovascular accident): Status: Suspected Assessment and plan: cont. DAPT x 30 days then aspirin alone. Patient intolerant to statins. Consider Zetia or one of the biologics, e.g. Repatha (2) Right foot pain: Status: Acute Assessment and plan: No fx on XR. Podiatry consulted. UA elevated, but no evidence of gout clinically. Continuel neurontin (3) Normocytic anemia: Status: Acute Assessment and plan: Evidence of borderline B12 and folic acid deficiency. Replete. check MMA and homocysteine levels (4) Vertigo: Status: Chronic Assessment and plan: PT consulted. use meclizine prn (5) Chronic renal insufficiency, stage III (moderate): Status: Chronic Assessment and plan: Cr near baseline. (6) IDDM (insulin dependent diabetes mellitus): Status: Chronic Assessment and plan: finger stick glucose running 110 to 186. continue SSI novolog; add CHO coverage (7) Hypomagnesemia: Status: Resolved Assessment and plan: resolved. continue supplementation (8) Hypercalcemia: Status: Resolved Assessment and plan: resolved D/c IVF. (9) DVT prophylaxis: Status: Acute Assessment and plan: SC heparin (10) Discharge planning issues: Status: Acute Assessment and plan: Full code patient and his prefer to return home if feasible. they decline to enter into SNF unless absolutely necessary. I will discuss w/ P.T tomorrow regarding his safety plans and their recommendations. Subjective Subjective Interval history since last seen: Patient is recuperating from an acute CVA involving his left parietal lobe w/ multiple infarcts. He has some right hemiparesis causing gait instability. He worked w/ PT today and did ok. Walking 30 ft x 2 w/ LOB once w/ listing to the right. He notes he still gets occasional vertigo spells in which the world feels like it moves on him. Overall his strength is improving and he would like to return home w/ some home P.T. and O.T. He is afraid to go to a SNF d/t the high rate of COVID-19. His would like him to return home as well as long as he is able to ambulate under his own power safely. Exam Narrative Exam Narrative: Elderly white male, alert and oriented x 3 Lungs: clear Heart: RRR Abdomen: soft, nontender, nondistended Neuro: normal facial mimetic movement, normal EOMI; grossly normal VF, no nystagmus; slight pronator drift in right hand/arm; slight clumsiness w/ rapid fine motor movments of right hand/fingers, and slight clumsiness w/ right heel to alcala movements. Overall grossly normal strength in major muscle groups in RUE and RLE. Some limited ROM in right ankle d/t recent injury from fall. No visible bruising of right foot or ankle. Objective Last Vital Signs Temp 36.5 C 11/26/20 11:25 Pulse 58 L 11/26/20 11:25 Resp 17 11/26/20 11:25 BP 157/76 H 11/26/20 11:25 Pulse Ox 97 11/26/20 11:25 Laboratory Results - last 24 hr 11/24/20 11/26/20 11/26/20 06:23 06:15 06:15 WBC 7.63 RBC 3.18 L Hgb 9.5 L Hct 28.2 L MCV 88.7 MCH 29.9 MCHC 33.7 RDW 13.8 Plt Count 153 MPV 10.3 Iron 45 L TIBC 218 L Transferrin % Sat 21 Ferritin Lyme Disease Antibody Negative 11/26/20 06:15 WBC RBC Hgb Hct MCV MCH MCHC RDW Plt Count MPV Iron TIBC Transferrin % Sat Ferritin 496 H Lyme Disease Antibody PAWSS Have you Been Recently Intoxicated or Drunk Within the Last 30 days?: No Have you Ever Experienced Previous Episodes of Alcohol Withdrawal?: No Have you ever Experienced Withdrawal Seizures?: No Have you ever Experienced Delirium Tremens(DT)s?: No Have you ever undergone Alcohol Rehabilitation Treatment (i.e, inpt ot outpatient treatment programs)?: No Have you ever Experienced Blackouts?: No Have you ever Combined Alcohol with other Downers within the last 90 days?: No Have you ever Combined Alcohol with any other Substance of Abuse during the last 90 days?: No Positive Blood Alcohol level on Presentation? [PCS.BAL]: No Evidence of Increased Autonomic Activity (i.e. HR>120, tremor, sweating, agitation, nausea)?: No Result: 0
[2020-11-26] MEDS: Ferrous Sulfate 325 MG TAB PO (19:10)
[2020-11-27] VITALS (9 sets, daily range): BP systolic 143–161; BP diastolic 75–88; PULSE 56–81; RESP 16–18; TEMP 36.5–36.8; O2SAT 95–99
[2020-11-27] MEDS: Heparin 5,000 UNITS/ML VIAL 5000 UNITS SC ×3 (00:02→17:09)
[2020-11-27] MEDS: Docusate Sodium 100 MG CAP PO (04:33)
[2020-11-27 07:16] LABS: Abs Immature Grans 0.04 10^3/uL (0.0-0.06); Absolute Basophil Count 0.02 10^3/uL (0.0-0.2); Absolute Eosinophil Count 0.11 10^3/uL (0.0-0.7); Absolute Lymphocyte Count 2.06 10^3/uL (1.2-3.4); Absolute Monocyte Count 0.81 10^3/uL (0.1-0.8); Absolute Neutrophil Count 4.77 10^3/uL (1.2-6.7); Basophils % 0.3; Eosinophils % 1.4; HCT 27.8 % (40.0-50.0); HGB 9.6 g/dL (13.5-17.5); Immature Grans % 0.5; Lymphocytes % 26.4; MCH 30.1 pg (27.0-33.0); MCHC 34.5 % (32.0-36.0); MCV 87.1 fL (80-95); MPV 10.3 fL (8.0-11.0); Monocytes % 10.4; Nucleated RBC 0 %; Platelet Count 175 10^3/uL (130-400); RBC 3.19 10^6/uL (4.36-5.78); RDW 13.7 % (11.8-14.1); RDW-SD 42.6 fL; WBC 7.81 10^3/uL (4.4-10.8)
[2020-11-27] MEDS: Cyanocobalamin 500 MCG TAB 1000 MCG PO (07:56)
[2020-11-27] MEDS: Ferrous Sulfate 325 MG TAB PO ×2 (07:56→19:32)
[2020-11-27] MEDS: Gabapentin 100 MG CAP PO ×3 (07:56→19:32)
[2020-11-27] MEDS: Aspirin E.C. 81 MG TABEC PO (07:56)
[2020-11-27] MEDS: Folic Acid 1 MG TAB PO (07:56)
[2020-11-27] MEDS: Clopidogrel 75 MG TAB PO (07:56)
[2020-11-27] MEDS: Insulin Aspart 300 UNITS/3 ML PEN SC ×6 (08:13→21:50)
--- NOTE | 2020-11-27 10:53 | PT.INTREAT ---
PT Notes Visit Reasons: Suspected acute CVA 11/27/2020 SUBJECTIVE: Feels good today. Does have an ASO donned R ankle which seems to be helpful. Does feel strongly about wanting to go home vs. SNF. OBJECTIVE: TRANSFERS Sit to stand: SBA Stand to sit: SBA GAIT Device: FWW Weight bearing: Full Assist: CGA Distance: 75'x2 Deviation: Lists to R but is able to self correct with cueing. No LOB during gait today. STAIRS Up and down 3-4 steps, 2-6 steps, step to pattern, 2 rails, good tolerance. Pt does have stairs at home that he can use if necessary. Has ramp which he will most likely use with the FWW. THEREX: Seated perturbations performed, coordination activities, standing static balance tasks. See flow sheet. ASSESSMENT: Able to increase his ambulation distance today without LOB. Is able to correct gait when he is walking to the right of his walker. Does appear to have some right sided neglect. For example when I put on his gait belt he automatically lifts the left arm and forgets to lift the right arm for me to fit belt. Once cued he is able to actively lift the right arm without difficulty. Pt does demonstrate some fatigue in the R LE after prolong gait distance. No foot drop noted today. I do think that pt is safe to return home vs. SNF if he going to have someone at home with him at all times. He would benefit from outpt PT referral if he can get there or home health PT. PLAN: As above. Continue current POC. Treatment time: 25 minutes [id number], [id number] Shivani Fragoso PTA Clinic location: [facility] [place], [place]
[2020-11-27 13:22] LABS: Anaplasma phagocytophilum Negative (Negative); B. miyamotoi PCR Negative (Negative); Babesia divergens/MO-1 Negative (Negative); Babesia duncani Negative (Negative); Babesia microti Negative (Negative); Ehrlichia chaffeensis Negative (Negative); Ehrlichia ewingii/canis Negative (Negative); Ehrlichia muris eauclairensis Negative (Negative)
--- NOTE | 2020-11-27 14:52 | PGE_ITS ---
Date of Service Date of service: 11/27/20 Time of Service: 14:52 Assessment and Plan Assessment and plan (1) Acute CVA (cerebrovascular accident): Status: Suspected Assessment and plan: cont. DAPT x 30 days then aspirin alone. Patient intolerant to statins. Consider Zetia or one of the biologics, e.g. Repatha (2) Right foot pain: Status: Acute Assessment and plan: No fx on XR. Podiatry consulted. UA elevated, but no evidence of gout clinically. Continuel neurontin (3) Normocytic anemia: Status: Acute Assessment and plan: Evidence of borderline B12 and folic acid deficiency. Replete. check MMA and homocysteine levels (4) Vertigo: Status: Chronic Assessment and plan: PT consulted. use meclizine prn (5) Chronic renal insufficiency, stage III (moderate): Status: Chronic Assessment and plan: Cr near baseline. (6) IDDM (insulin dependent diabetes mellitus): Status: Chronic Assessment and plan: finger stick glucose running 136 to 147. continue SSI novolog; add CHO coverage (7) Hypomagnesemia: Status: Resolved Assessment and plan: resolved. continue supplementation (8) Hypercalcemia: Status: Resolved Assessment and plan: resolved D/c IVF. (9) DVT prophylaxis: Status: Acute Assessment and plan: SC heparin (10) Discharge planning issues: Status: Acute Assessment and plan: Full code patient and his prefer to return home if feasible. they decline to enter into SNF unless absolutely necessary. Home in a.m. w/ home P.T. and O.T. and M.S.W. follow up w/ Dr. Romeo in 4 weeks Subjective Subjective Patient reports: feels better and no bowel movement Interval history since last seen: Patient did better w/ P.T. today walking 75 ft x 2. Physical therapy indicated that they feel that he would be safe to go home as long as he has someone staying w/ him 24 hr x 7days/wk. He lives w/ his and only has 4 steps to get into the home and lives on one level. As he has not had a bowel movement in a few days and we do not have home health available to initiate on the weekend, I will plan for dc home tomorrow w/ home health, home P.T. and O.T. and [employer]. For his constipation, I will give him dulcolax and senna and magnesium citrate this afternoon. Exam Narrative Exam Narrative: Elderly white male, alert and oriented x 3 Lungs: clear Heart: RRR Abdomen: soft, nontender, nondistended Neuro: normal facial mimetic movement, normal EOMI; grossly normal VF, no nystagmus; slight pronator drift in right hand/arm; slight clumsiness w/ rapid fine motor movments of right hand/fingers, and slight clumsiness w/ right heel to alcala movements. Overall grossly normal strength in major muscle groups in RUE and RLE. Some limited ROM in right ankle d/t recent injury from fall. No visible bruising of right foot or ankle. Objective Last Vital Signs Temp 36.5 C 11/27/20 11:40 Pulse 81 11/27/20 11:40 Resp 18 11/27/20 11:40 BP 146/88 H 11/27/20 11:40 Pulse Ox 99 11/27/20 11:40 Laboratory Results - last 24 hr 11/27/20 11/27/20 06:40 06:40 WBC 7.81 RBC 3.19 L Hgb 9.6 L Hct 27.8 L MCV 87.1 MCH 30.1 MCHC 34.5 RDW 13.7 Plt Count 175 MPV 10.3 Immature Gran % 0.5 Neutrophils % 61.0 Lymphocytes % 26.4 Monocytes % 10.4 Eosinophils % 1.4 Basophils % 0.3 Nucleated RBC % 0 Absolute Neutrophils 4.77 Absolute Lymphocytes 2.06 Absolute Monocytes 0.81 H Absolute Eosinophils 0.11 Absolute Basophils 0.02 Magnesium 2.0 PAWSS Have you Been Recently Intoxicated or Drunk Within the Last 30 days?: No Have you Ever Experienced Previous Episodes of Alcohol Withdrawal?: No Have you ever Experienced Withdrawal Seizures?: No Have you ever Experienced Delirium Tremens(DT)s?: No Have you ever undergone Alcohol Rehabilitation Treatment (i.e, inpt ot outpatient treatment programs)?: No Have you ever Experienced Blackouts?: No Have you ever Combined Alcohol with other Downers within the last 90 days?: No Have you ever Combined Alcohol with any other Substance of Abuse during the last 90 days?: No Positive Blood Alcohol level on Presentation? [PCS.BAL]: No Evidence of Increased Autonomic Activity (i.e. HR>120, tremor, sweating, agitation, nausea)?: No Result: 0
[2020-11-27] MEDS: Magnesium Citrate 300 ML BTL PO (15:32)
[2020-11-27] MEDS: Senna TAB 1 TAB PO (15:32)
[2020-11-27] MEDS: Bisacodyl 10 MG SUPP PR (15:32)
[2020-11-27] MEDS: Normal Saline Flush 10 ML SYR IVP (19:32)
[2020-11-28] MEDS: Heparin 5,000 UNITS/ML VIAL 5000 UNITS SC ×2 (00:09→07:42)
[2020-11-28 00:50] VITALS: PULSE 62
[2020-11-28 04:06] VITALS: BP 166/77; PULSE 61; RESP 16; TEMP 36.7; O2SAT 98
[2020-11-28 07:00] VITALS: PULSE 56
[2020-11-28] MEDS: Ferrous Sulfate 325 MG TAB PO (07:42)
[2020-11-28] MEDS: Famotidine 20 MG TAB PO (07:42)
[2020-11-28] MEDS: Aspirin E.C. 81 MG TABEC PO (07:42)
[2020-11-28] MEDS: Cyanocobalamin 500 MCG TAB 1000 MCG PO (07:42)
[2020-11-28] MEDS: Clopidogrel 75 MG TAB PO (07:42)
[2020-11-28] MEDS: Gabapentin 100 MG CAP PO ×2 (07:42→13:36)
[2020-11-28] MEDS: Folic Acid 1 MG TAB PO (07:42)
--- NOTE | 2020-11-28 07:42 | OTDS_ITS ---
Date of service: 11/28/20 Time of Service: 07:42 Occupational Therapy Notes Occupational Therapy Inpatient Discharge Summary Date: 11/24/20 Dates of Service: 11/24/20-11/28/20 Referring Doctor:Linda Cornell MD OT Orders: Non Urgent Precautions: Fall, standard, Full PATIENT PROFILE/ADMITTING DIAGNOSIS: Pt is a 70 year old male who was admitted through the ED with the following dx (R) hemiparesis, IDDM, hypercalcemia, hypomagnesemia, vertigo, normocytic anemia, acute CVA, serum calcium elevated, f atigue, erectile dysfunction, dysphagia, schatzki's ring, BPH, (R) lumbar radiculopathy. Past Medical History: Medical History Chronic pain syndrome Closed fracture of clavicle Diabetic macular edema (01/05/12) Dyspepsia (10/11/17) Essential hypertension (02/05/13) Family history of malignant neoplasm of prostate brother Fatigue Gastroparesis diabeticorum GERD (gastroesophageal reflux disease) Hyperlipidemia Moderate nonproliferative diabetic retinopathy (01/04/11) Optical expressions; severe NPDR; OU w/DME OD 2013 Referral to [facility] [place] for evaluation. 01/05/2014: [facility] [place] Eval Type II DM with diabetic retinopathy and macular edema with moderatate nonproliferative retinopathy. Phimosis (11/27/16) Presbyesophagus (04/11/17) Stricture and stenosis of esophagus Tinnitus Surgical History Extraction of cataract [facility] [place] PROCEDURES Strabismus surgery as child Social History/Home Situation: Pt states that he lives with is in a private home. He reports that he is (I) at his baseline level of function.. The past 2 days he notes that he was dizzy and kept having incidents of weakness. He is unable to perform his LE dressing now. SUBJECTIVE: Pt was sitting in bed when OT arrived, he states that he is going home and is happy with where he is at, at this time. OBJECTIVE: ROM: RUE AROM WFL L UE AROM WFL STRENGTH: RUE 5/5 throughout LUE 5/5 throughout globally FUNCTIONAL MOBILITY/ADLS: BATHING pt denies. DRESSING sitting in bed OT assessed pts LE dressing which he was able to (I) don and doff his (B) sock. TOILETING on toilet (I) BALANCE: Static sitting Good Dynamic Sitting Good ASSESSMENT: Patient is a 70-year-old male referred to occupational therapy services with diagnosis of suspected CVA. Pt was seen for 3 skilled OT sessions and notes that he is going home today. He feels that he is at his baseline level of function at this time. GOALS- Met 1. Eating pt will be (I) with eating sitting in the chair 2. Dressing sitting in chair (I) LE dressing 3. Bathing standing at sink (I) UE/LE 4. Toileting on toilet (I) PLAN OF CARE/TREATMENT PLAN: Discharge from skilled OT services. DISCHARGE RECOMMENDATIONS OT recommends that pt return home with services when medically cleared per MD. TREATMENT TIME/MINUTES/CODES [id number], 10 minutes Eve Leo OTR/L [facility]
[2020-11-28 07:55] VITALS: BP 169/93; PULSE 66; RESP 16; TEMP 36.4; O2SAT 98
[2020-11-28] MEDS: Insulin Aspart 300 UNITS/3 ML PEN SC ×2 (08:13→11:58)
--- NOTE | 2020-11-28 09:15 | PT.INTREAT ---
Date of service: 11/28/20 Time of Service: 08:58 PT Notes Visit Reasons: Suspected acute CVA Inpatient Physical Therapy Treatment Note [facility] Date: 11/28/2020 PRECAUTIONS: Fall SUBJECTIVE: Alli is pleasant and agreeable to participating in PT. He states that he feels he is doing much better and that he feels that he is ready to discharge to home safely. OBJECTIVE: PAIN: No c/o pain BED MOBILITY/TRANSFERS Supine-sit: I Sit-stand: I Stand-sit: I GAIT Assistive Device: FWW Weight bearing: Full Assist: SBA Distance: 250' THEREX: Declined STAIRS: Up/down 3x4 and 2x6 using B rails and a step-to pattern with supervision ASSESSMENT: Patient tolerated session well without complaint. He was able to tolerate a progression in gait distance with FWW support and SBA. He demonstrates independence with transfers and bed mobility at this time. PLAN: Discharge to home later today, per provider. Recommend follow up with PT upon discharge. TREATMENT CODE/TIME: 12 minutes; [id number] (08:58)
[2020-11-28] MEDS: Carvedilol 3.125 MG TAB PO (09:17)
[2020-11-28 11:12] VITALS: BP 148/80; PULSE 63; RESP 16; TEMP 36.7; O2SAT 97
--- NOTE | 2020-11-28 13:57 | PDOC.HHF2F_ITS ---
Home Health Certification Home Health Certification: 1. Encounter Date and Reason I certify that Alli Edwards was seen by Daniel Kirkland on 11/28/20 and that I had a [id number] encounter with this patient that meets the physician face to face encounter requirements. 2. Clinical Findings Supporting Skilled Need and Homebound Status I certify that home health services are medically necessary, include either intermittent half-way and/or physical/speech therapy, and that this patient is homebound in that absences from the home require considerable and taxing effort and are infrequent or of short duration, or are attributable to the need to receive medical care. [X] (a) Attached documentation from encounter provides clinical findings supporting skilled need and homebound status (including what assistance patient requires to leave the home). The encounter with the patient was in whole, or in part, for the following medical condition, which is the primary reason for home health care: Suspected acute CVA Custodial: nursing to evaluate and treat for CVA; monitor BP, glucose to evaluate and treat HTN and DM; draw labs and coordinate new meds/orders w/ PCP and specialists Physical Therapy: continue to evaluate and treat for right hemiparesis from L. parietal CVA; treat gait imbalance; O.T. to evaluate and treat for CVA; assist patient and family indetermining any special needs to perform ADL tasks Speech Therapy: Homebound: patient's recent CVA has caused weakness and gait instability putting him at risk for falls making unnecessary travel outside the home a risk for injury 3. Certification and Authentication I certify that I composed the above information based on my clinical judgement relating to this patient's medical condition and, if applicable, clinical findings communicated to me by the NPP or inpatient physician who performed the Home Health Referral. All further orders will be obtained through ___Shelli Rodriguezbbertin (Community Based Physician - PCP)
--- NOTE | 2020-11-28 13:57 | DSE_ITS ---
Date of service: 11/28/20 Time of Service: 13:57 DS: Diagnosis Discharge Diagnosis (1) Acute CVA (cerebrovascular accident): Status: Acute Asessment and Plan: Patient presented w/ symptoms of RUE and RLE weakness, frequent falls over past 3 days prior to admission. CT head w/o contrast demonstrated no acute process but decr. attentuation of white matter c/w small vessel ischemic disease and an old R. basal ganglia stroke. Patient was admitted on put on dual antiplatelet therapy w/ ASA 81 mg and Plavix 75 mg, Neurology consult was obtained w/ Dr. Elizabeth Bruce (see her note from 11/23). She ag vince w/ obtaining an MRI w/o of the brain and MRA of head and neck and doing DAPT. Because of his prior adverse drug reaction to statins no statin was ordered however upon discharge he was prescribed Zetia. Initially his BP was allowed to run on the higher side (150's to 160's systolic) however towards the end of his hospitalization when his BP was running in the 160's to 170's he was put on carvedilol 3.125 mg bid. MRI of the brain w/o contrast demonstrated multiple restricted diffusion defects in the left parietal lobe c/w multiple strokes suggestive of emoblic source. MRA of the brain and the neck showed no significant vascular stenosis, nor aneurysms. Transthoracic echocardiogram was performed w/ agitated saline. No interatrial shunt was seen and his LV size, thickness and systolic function were normal w/LVEF of 60 to 65%. RV was also normal. He had moderate MAC but no mitral stenosis and only trace of mitral regurgitation. He has a dilated ascending aorta of 3.96 cm. The aortic valve is trileaflet w/ sclerosis but no A.S. nor any A.I. Patient was treated by P.T. and his gait instability and balance improved to the point he was ambulating w/ FWW independently w/ only SBA and he was doing stairs on his own holding on to handrails. The patient and his opted for him to return home w/ home health including nursing and P.T. and OT rather than going to SNF. Patient was discharged home on Plavix, and he is to continue his home dose of ASA 81 mg daily. For his blood pressure carvedilol 3.125 mg bid was prescribed and Zetia was prescribed for cholesterol. Of note, I neglected to add ASA 81 mg to his home going directions however, I called the patient up to verify that he is taking both the Plavix that was prescribed and the ASA 81 mg. He understands that he will need to remain on ASA. Patient is to follow up w/ neurology in 4 weeks and his PCP in one week. A 30 day cardiac event recorder was placed upon discharge. (2) Right foot pain: Status: Acute Asessment and Plan: xray of his foot revealed no acute bony abnoralities.he was fitted w/ an ankle brace which helped w/ his support w/ ambulation. Patient was controlled w/ oral analgesics. (3) Normocytic anemia: Status: Chronic Asessment and Plan: patient was prescribed iron sulfate for his iron deficiency anemia. (4) Vertigo: Status: Chronic (5) Chronic renal insufficiency, stage III (moderate): Status: Chronic Asessment and Plan: patient presented w/ elvated BUN of 30 and creatinine of 3.0. This appears to have been his baseline and this remained unchanged during his hospital stay. (6) IDDM (insulin dependent diabetes mellitus): Status: Chronic Asessment and Plan: patient was treated w/ basal/bolus insulin and a corrective sliding scale. His glucose ran from the low to mid 100s' up to the low 200's. His glycohemoglobin A1c was checked and found to be acceptable at 6.5%. (7) Hypomagnesemia: Status: Resolved Asessment and Plan: corrected w/ oral and parenteral replacement (8) Hypercalcemia: Status: Resolved Asessment and Plan: elevated on admission at 10.8 but corrected to 9.2. (9) Discharge planning issues: Status: Resolved Asessment and Plan: patient was discharged home w/ home health services including nursing, P.T. and O.T. and M.S.W to assist patient and family w/ coordination of services and to provide in home physical and occupational therapy. Discharge Plan Disposition Patient Disposition: HOME W/HOME HEALTH SERVICE Condition: Stable Discharge Details Reason For Visit: Suspected acute CVA Admit Date/Time: 11/23/20 12:54 Admit Provider: Linda Cornell Attending Provider: Linda Cornell Primary Care Provider: Dobbertin,Shelli Home Meds and New Rx's Prescriptions: New clopidogrel 75 mg Tablet 75 mg PO DAILY Qty: 30 RF: 0 carvedilol 3.125 mg Tablet 3.125 mg PO BID Qty: 60 RF: 1 cyanocobalamin (vitamin B-12) [Vitamin B-12] 500 mcg Tablet 1,000 mcg PO DAILY Qty: 30 RF: 1 ferrous sulfate 325 mg (65 mg iron) Tablet 325 mg PO BID Qty: 60 RF: 1 folic acid 1 mg Tablet 1 mg PO DAILY Qty: 30 RF: 1 gabapentin 100 mg Capsule 100 mg PO TID Qty: 90 RF: 0 codeine sulfate 30 mg tablet 30 mg PO TID PRNQty: 30 RF: 0 ezetimibe [Zetia] 10 mg tablet 10 mg PO DAILY Qty: 30 RF: 1 Continued famotidine [Pepcid AC] 20 mg tablet 20 mg PO DAILY PRNRF: 0 calcium carbonate [Tums] 200 mg calcium (500 mg) tablet,chewable 200 mg PO BID PRNRF: 0 (DME) lancing device [Lancing System] Misc See Rx Instructions .ROUTE .MEDSUPPLY Qty: 1 RF: 0 lidocaine 4 % gel 1 applic TP BID PRN (Reason: pain) Qty: 113 RF: 1 glipizide [Glucotrol] 5 mg tablet 2.5 mg PO TID Qty: 135 RF: 4 Lantus Solostar U-100 Insulin 100 unit/mL (3 mL) insulin pen 16 unit subcut DAILY Qty: 1 RF: 5 (DME) lancets 28 gauge misc 1 ea Sub-Q BID Qty: 100 RF: 4 (DME) pen needle, diabetic 31 gauge x 1/3 needle 1 ea Miscellaneous DAILY Qty: 100 RF: 5 (DME) blood sugar diagnostic Strip See Dose Instructions .ROUTE .MEDSUPPLY Qty: 100 RF: 4 (DME) blood-glucose meter Misc See Rx Instructions .ROUTE .MEDSUPPLY Qty: 1 RF: 0 Discharge Instructions Instructions: Ischemic Stroke (DC) Stand Alone Forms: Nursing Discharge Form Referrals: Shelli Blackmon MD, [place] [Primary Care Provider] - 12/13/20 11:40 am Elizabeth Romeo MD [ [facility]FF PHYSICIAN] - 01/18/21 12:15 pm Activity:: Activity as Tolerated Equipment/Supplies:: No Equipment Needed Diet:: Carb Counting Discharge Orders Discharge Orders: Discharge Order (Routine); Ordered 11/28/20 Ordered By: Daniel Kirkland Other Ambulatory Orders: Cardiac Event Recorder (Routine) Timeframe: 1 Day Facility: [facility] - Location: Respiratory Therapy Ordered By: Daniel Kirkland Discharge Data Discharge Date/Time-TO BE ENTERED AT DEPARTURE: 11/28/20 15:04 DS: Summary Time Spent with Patient providing and/or coordinating discharge services: Less than 30 minutes Status at Discharge Functional status at discharge: uses cane/walker Overall status at discharge: patient is progressing back to baseline Mental Status: mental status grossly normal Speech and Movement: speech and movement normal Mood: congruent mood Affect: normal affect Exam Narrative Exam Narrative: Elderly white male, alert and oriented x 3 Lungs: clear Heart: RRR Abdomen: soft, nontender, nondistended Neuro: normal facial mimetic movement, normal EOMI; grossly normal VF, no nystagmus; slight pronator drift in right hand/arm; slight clumsiness w/ rapid fine motor movments of right hand/fingers, and slight clumsiness w/ right heel to alcala movements. Overall grossly normal strength in major muscle groups in RUE and RLE. Some limited ROM in right ankle d/t recent injury from fall. No visible bruising of right foot or ankle. Psych Mental Status: mental status grossly normal Speech and Movement: speech and movement normal Mood: congruent mood Affect: normal affect DS: Data Vitals/I&O Vitals and I&O: Vital Signs Temperature 36.7 C 11/28/20 11:12 Temperature Source Tympanic 11/28/20 11:12 Pulse 63 11/28/20 11:12 Pulse Rhythm Regular 11/28/20 07:51 Respiratory Rate 16 11/28/20 11:12 Respiratory Effort Non-Labored 11/28/20 07:51 Respiratory Depth Normal 11/28/20 07:51 Respiratory Pattern Normal 11/28/20 07:51 Blood Pressure 148/80 H 11/28/20 11:12 Blood Pressure Position Supine 11/23/20 10:35 Pulse Oximetry 97 11/28/20 11:12 Oxygen Delivery Method Room Air 11/28/20 07:55 Oxygen Flow Rate 0 11/28/20 07:55 Pain Level 0 11/28/20 11:12 Intake & Output 11/27/20 11/28/20 11/28/20 23:59 11:59 23:59 Intake Total 550 / 800 250 / 250 Output Total 1350 / 2550 1025 / 1025 Balance -800 / -1750 -775 / -775 Weight 70.9 kg Intake: IV Oral 540 / 790 250 / 250 Output: Urine 1100 / 2300 1025 / 1025 Stool 250 / 250 Other: Urine Color Yellow Yellow Urine Appearance Clear Clear Urine Odor Normal Normal Stool Occult Blood Negative Stool Size Large Moderate Stool Characteristics Liquid Liquid Brown Brown Voiding Methods Toilet Toilet Data Completed and Pending Labs on day of discharge: Labs from last 24 hours 11/28/20 11/24/20 07:06 06:23 A.phagocytophil DNA PCR Negative B. divergens/MO-1 PCR Negative Babesia duncani (PCR) Negative Babesia microti DNA PCR Negative Borrelia (PCR) Negative COVID-19 Source Cancelled SARS-CoV-2 (PCR) Cancelled E.chaffeensis DNA (PCR) Negative E.ewingii/canis DNA PCR Negative E. muris-like DNA (PCR) Negative PFS Medical History Chronic pain syndrome Closed fracture of clavicle Diabetic macular edema (01/05/12) Dyspepsia (10/11/17) Essential hypertension (02/05/13) Family history of malignant neoplasm of prostate brother Fatigue Gastroparesis diabeticorum GERD (gastroesophageal reflux disease) Hyperlipidemia Moderate nonproliferative diabetic retinopathy (01/04/11) Optical expressions; severe NPDR; OU w/DME OD 2013 Referral to [facility] [place] for evaluation. 01/05/2014: [facility] [place] Eval Type II DM with diabetic retinopathy and macular edema with moderatate nonproliferative retinopathy. Phimosis (11/27/16) Presbyesophagus (04/11/17) Stricture and stenosis of esophagus Tinnitus Surgical History Extraction of cataract [facility] [place] PROCEDURES Strabismus surgery as child Family History Mother , 70s RA (rheumatoid arthritis) CHF (congestive heart failure) Depression Heart disease Father , 70s Alcohol abuse Psoriasis Brother , 70s Diabetes Alcohol abuse Hyperlipidemia Myocardial infarction Neoplasm PROSTATE Sister , 70s No problems noted. Social History Smoking/Tobacco Use Status: Never Smoking risk assessment performed?: Yes Alcohol Intake: current Alcohol Intake frequency: 0-2 drinks per day Alcohol type: beer Drug use: Never Substance use type: does not use Caregiver/Support person: No Household members: spouse Housing: house Communication Needs: None current occupation: [employer] Sports Pets and animals: No Sexually active: No Do you think of yourself as: straight/heterosexual Current gender identity: male What is your relationship status?: How often do you talk on the phone with friends or family?: once per week How often do you get together with friends or relatives?: twice per week How often do you attend jain or hinduism services?: decline to answer Do you belong to any clubs or organized social groups?: yes Panel score (0-1 are the most socially isolated patients): 3 What type of physical activity do you participate in: walking Duration: < 15 minutes/day Frequency: 1-2 times per week Shara/Restorationism: Jewish Special shara needs: No Seatbelt use: always Helmet use: No Drive intox or ride w/intox lokie driver: No Do you feel safe in your relationship?: Yes
[2020-11-28 14:18] VITALS: PULSE 62
--- NOTE | 2020-11-28 18:37 | PDOC.CMDIS ---
- If Service Date Differs Date of service: 11/28/20 Time of Service: 18:37 LACE Index Scoring Tool - Questions: Length of Stay (in days): 4 - 6 Acuity (Admit via E.D.?): Yes Comorbidities: Cerebrovascular Disease, Diabetes w/o Complication, Mild Liver/Renal Disease E.D. Visits: 1 - Answers: Total Score: 13 Risk of Readmission: High Risk Care Management Discharge Reason for Hospitalization: Suspected acute CVA Discharge Plan: Alli will return home today with new orders for PT, OT. His will drive him home via private vehicle. He will follow up with his PCP and discharge plan of care. He is happy to be going home, as he planned on going to rehab, but improved greatly over the weekend, making it possible for him to return home instead. Patient/Family Education Needs: Review discharge instructions regarding activity levels and medications, discussion of self care needs including ask me three. Services Needed at Discharge: Home Health Care Services
--- NOTE | 2020-11-29 17:00 | INDS_ITS ---
Date of service: 11/29/20 PT Notes Visit Reasons: Suspected acute CVA Physical Therapy Inpatient Discharge Summary Date: 11/29/2020 Dates of service: 11/23/2020 through 11/28/2020 This is a clinical summary of care provided for the duration of dates listed above. No charge was made in the completion of this documentation. Referring Doctor: Linda Cornell MD PT Orders: PT CONSULT: Limited ability Precautions: Fall. Standard. Activity as tolerated. Vertigo. Patient Profile/Admitting Diagnosis: Alli is a 70-year-old male who presented to the ED today due to spinning sensation and 3 days' worth of increasing right- sided arm and leg weakness as well as clumsiness of the right LE. Patient is diagnosed with acute CVA and stage III chronic renal failure. PMHX: Medical History Chronic pain syndrome Closed fracture of clavicle Diabetic macular edema (01/05/12) Dyspepsia (10/11/17) Essential hypertension (02/05/13) Family history of malignant neoplasm of prostate brother Fatigue Gastroparesis diabeticorum GERD (gastroesophageal reflux disease) Hyperlipidemia Moderate nonproliferative diabetic retinopathy (01/04/11) Optical expressions; severe NPDR; OU w/DME OD 2013 Referral to [facility] [place] for [place]. 01/05/2014: [facility] [place] Eval Type II DM with diabetic retinopathy and macular edema with moderatate nonproliferative retinopathy. Phimosis (11/27/16) Presbyesophagus (04/11/17) Stricture and stenosis of esophagus Tinnitus Surgical History Extraction of cataract [facility] [place] PROCEDURES Strabismus surgery as child Social History/Home Situation: Lives with in a private home with 3-4 steps to enter with rail on B sides. Independent with all aspects of ADLs without assistive ambulatory device prior to hospital admission. Electric keyboard player/organist. Equipment Owned/DME: None Subjective: NT. See most recent NOTCHING PRESS OPERATOR notes. Objective: General Observation: NT. See most recent NOTCHING PRESS OPERATOR notes. Mental Status: NT. See most recent NOTCHING PRESS OPERATOR notes. Pain: NT. See most recent NOTCHING PRESS OPERATOR notes. Vital Signs: NT. See most recent NOTCHING PRESS OPERATOR notes. ROM: Right Upper Extremity: Shoulder Flexion WFL. Shoulder abduction WFL. Elbow flexion WFL. Wrist flexion WFL. Functional opening and closing of hand WFL. Left Upper Extremity: Shoulder Flexion WFL. Shoulder abduction WFL. Elbow flexion WFL. Wrist flexion WFL. Functional opening and closing of hand WFL. Right Lower Extremity: Hip flexion WFL. Hip abduction WFL. Knee flexion WFL. Ankle dorsiflexion to neutral only. Ankle plantarflexion WFL. Left Lower Extremity: Hip flexion WFL. Hip abduction WFL. Knee flexion WFL. Ankle dorsiflexion WFL. Ankle plantarflexion WFL. Strength: Right Upper Extremity: Shoulder flexors 4-/5. Shoulder abductors 4-/5. Elbow flexors 4-/5. Elbow extensors 4-/5. Qualitative Field Project Manager comparatively weaker than the left. Left Upper Extremity: Shoulder flexors 5/5. Shoulder abductors 5/5. Elbow flexors 5/5. Elbow extensors 5/5. Qualitative Field Project Manager strong. Right Lower Extremity: Hip flexors 4/5. Hip abductors 4/5. Knee flexors 4/5. Knee extensors 4/5. Ankle dorsiflexors 3-/5. Ankle plantarflexors 4/5. Left Lower Extremity: Hip flexors 5/5. Hip abductors 5/5. Knee flexors 5/5. Knee extensors 5/5. Ankle dorsiflexors 5/5. Ankle plantarflexors 5/5. Bed Mobility/Transfers: Supine to sit independent Sit to stand independent Stand to sit independent Bed to reclining chair independent Gait: Instructed patient with level surface ambulation of 250 feet requiring standby assist. No LOB. Denies headache and chest pain. Balance: Static Sitting: Good Dynamic Sitting: Good Static Standing: Fair Dynamic Standing: Fair Assessment: Patient presents with clinical signs and symptoms consistent with current/admitting diagnoses that have resulted to mobility limitations, gait instability, generalized weakness, and overall ADL decline as demonstrated by the following impairment level findings: 1. Decreased strength to R UE/LE major muscle groups 2. Impaired standing balance 3. Impaired activity tolerance Impairments are contributing to the following functional limitations: 1. Decline in bed mobility skills 2. Decline in transfer skills 3. Difficulty with ambulation without assistive device 4. Increased completion time for mobility ADL performance 5. Increased risk for falls 6. Difficulty with managing steps alone safely Goals: Goals X1 week 1. Supine-Sit independent MET 2. Sit-Supine independent MET 3. Sit-Stand independent MEGT 4. Stand-Sit independent with no AD MET 5. Bed-Chair independent with no AD MET 6. Chair-Bed independent with no AD MET 7. Independent gait on level surface with use of no AD for at least 200 feet without report of pain NOT MET 8. Independent stair negotiation while holding onto B rails for at least 5 steps without report of pain NOT MET 9. Good static and dynamic standing balance/tolerance NOT MET DISCHARGE RECOMMENDATIONS: Patient will benefit from home health PT services in order to progress mobility level using least restrictive assistive ambulatory device, assess home safety, identify additional equipment needs, and establish a functional maintenance program that will increase ability of patient to remain at home. TREATMENT CODE/TIME: AK Thank you for the opportunity to participate in the care of this patient. Myrna Garcia PT, DPT, CLT [facility] [place], [place]
[2020-11-30 14:32] LABS: Methylmalonic Acid 0.21 nmol/mL (<=0.40)
--- NOTE | 2020-12-29 13:33 | W.CARDEVENT ---
Date of service: 12/29/20 Time of Service: 13:33 Cardiac Event Recorder Referring Provider:: Shelli Blackmon Indications:: Cerebrovascular accident Cardiac Event Note: This is a 30-day event monitor ordered because of stroke Predominant rhythm was sinus with average heart rate of 59 There was no atrial fibrillation There were no significant ventricular dysrhythmias There was no high-grade AV block or pauses greater than 3 seconds There were no apparent patient symptoms
== END 2020-11-28 15:04 | disposition home health service (06) | DRG 65 ==
LOC: ER 13:37 → MS 14:25
PROVIDERS: Internal Medicine; Admitting Provider Internal Medicine; Emergency Provider Emergency Medicine; PCP Family Medicine; Visit Provider Internal Medicine
DX: I63.9 Cerebral infarction, unspecified (principal); G81.93 Hemiplegia, unspecified affecting right nondominant side; N18.30 Chronic kidney disease, stage 3 unspecified; E78.5 Hyperlipidemia, unspecified; E11.319 Type 2 diabetes mellitus with unspecified diabetic retinopathy without macular edema; M10.9 Gout, unspecified; K21.9 Gastro-esophageal reflux disease without esophagitis; R29.6 Repeated falls; G89.4 Chronic pain syndrome; E11.43 Type 2 diabetes mellitus with diabetic autonomic (poly)neuropathy; K31.84 Gastroparesis; K22.2 Esophageal obstruction; Z20.822 Contact with and (suspected) exposure to COVID-19; D64.9 Anemia, unspecified; R42 Dizziness and giddiness; E11.22 Type 2 diabetes mellitus with diabetic chronic kidney disease; E83.52 Hypercalcemia; E83.42 Hypomagnesemia; I12.9 Hypertensive chronic kidney disease with stage 1 through stage 4 chronic kidney disease, or unspecified chronic kidney disease; D53.8 Other specified nutritional anemias; I67.9 Cerebrovascular disease, unspecified; Z79.4 Long term (current) use of insulin; S96.911A Strain of unspecified muscle and tendon at ankle and foot level, right foot, initial encounter; W19.XXXA Unspecified fall, initial encounter
CPT/HCPCS: 36415; 36416; 70544; 70547; 80048; 80053; 80061; 80186; 82962; 83090; 85027; 87635; 87798; 93005; 93270; 93306; 96361; 96365; 97110; 97162; 97165; 97530; 97535; 99223; 99233; 99285; 70450; 70551; 71045; 73630; 81003; 81015; 82607; 82728; 82746; 83036; 83540; 83550; 83735; 84484; 84550; 85014; 85018; 85025; 86618; 87086; 93010; 99232; 99238; J1644; J3420; J3475

== ENCOUNTER 2020-12-20 02:14 | Outpatient (CLI) | payer MEDICARE, SELFPAY ==
[2020-12-20 12:14] LABS: HCT 33.6 % (40.0-50.0); HGB 10.8 g/dL (13.5-17.5); MCHC 32.1 % (32.0-36.0); MCV 90.3 fL (80-95); MPV 10.3 fL (8.0-11.0); Platelet Count 187 10^3/uL (130-400); RBC 3.72 10^6/uL (4.36-5.78); RDW 13.7 % (11.8-14.1); RDW-SD 44.9 fL; WBC 8.84 10^3/uL (4.4-10.8)
[2020-12-20 12:28] LABS: ALT 27 U/L (16-63); AST 15 U/L (15-37); Albumin 3.6 g/dL (3.4-5.0); Alkaline Phosphatase 70 U/L (46-116); Anion Gap 4.8 mmol/L (3-11); BUN 27 mg/dL (7-18); Bilirubin, Total 0.4 mg/dL (0.2-1.0); CO2 31.2 mmol/L (21.0-32.0); CREATININE 2.7 mg/dL (0.70-1.30); Calcium 11.2 mg/dL (8.5-10.1); Chloride 106 mmol/L (98-107); Estimated GFR 23.55 (mL/min/1.73m2); Glucose 170 mg/dL (74-106); Potassium 4.1 mmol/L (3.5-5.1); Sodium 142 mmol/L (136-145); Total Protein 7.2 g/dL (6.4-8.2)
[2020-12-21 10:44] LABS: Parathyroid Hormone,Intact 6 pg/mL (19-88)
[2020-12-22 01:43] LABS: Vitamin D 25 Total 11.8 ng/mL (30-100)
== END 2020-12-20 02:15 | disposition home or self-care (01) ==
LOC: LOS 02:14
PROVIDERS: PCP Family Medicine; Visit Provider Family Medicine
DX: R53.83 Other fatigue; E83.52 Hypercalcemia; E11.311 Type 2 diabetes mellitus with unspecified diabetic retinopathy with macular edema
CPT/HCPCS: 80053; 82306; 85027; 83970

== ENCOUNTER 2020-12-29 13:33 | Outpatient (CLI) | payer MEDICARE, SELFPAY | END 2020-12-29 13:34 | LOC: CARDO 01-03 11:48 | PROVIDERS: PCP Family Medicine; Referring Provider Internal Medicine; Visit Provider Internal Medicine Cardiovascular Disease | DX: I63.9 Cerebral infarction, unspecified (principal) | CPT/HCPCS: 93272 ==

== ENCOUNTER → 2021-02-01 08:09 | Outpatient (BNVA) | payer MEDICARE, SELFPAY | PROVIDERS: PCP Family Medicine; Referring Provider Family Medicine; Visit Provider Psychiatry & Neurology Neurology | DX: I63.9 Cerebral infarction, unspecified (principal); G81.91 Hemiplegia, unspecified affecting right dominant side; R42 Dizziness and giddiness | CPT/HCPCS: 99214 ==

== ENCOUNTER → 2021-03-28 10:58 | Outpatient (BNVA) | payer MEDICARE, SELFPAY | PROVIDERS: PCP Family Medicine; Referring Provider Family Medicine; Visit Provider Psychiatry & Neurology Neurology | DX: G81.91 Hemiplegia, unspecified affecting right dominant side (principal); I63.9 Cerebral infarction, unspecified; R42 Dizziness and giddiness; R29.898 Other symptoms and signs involving the musculoskeletal system; G25.3 Myoclonus | CPT/HCPCS: 99214 ==

== ENCOUNTER → 2021-04-12 14:26 | Outpatient (BNVA) | payer MEDICARE, SELFPAY | PROVIDERS: PCP Family Medicine; Referring Provider Family Medicine; Visit Provider Psychiatry & Neurology Neurology | DX: I69.351 Hemiplegia and hemiparesis following cerebral infarction affecting right dominant side (principal); Z79.82 Long term (current) use of aspirin; R29.6 Repeated falls; R41.3 Other amnesia; R42 Dizziness and giddiness; R29.898 Other symptoms and signs involving the musculoskeletal system; G25.3 Myoclonus; E53.8 Deficiency of other specified B group vitamins | CPT/HCPCS: 99215 ==

== ENCOUNTER 2021-04-28 04:18 | Outpatient (CLI) | payer MEDICARE, SELFPAY | END 2021-04-28 04:19 | disposition home or self-care (01) | LOC: LBO 04:18 | PROVIDERS: PCP Family Medicine; Visit Provider Family Medicine ==

== ENCOUNTER 2021-05-08 03:25 | Outpatient (CLI) | payer MEDICARE, SELFPAY ==
[2021-05-08 13:51] LABS: HCT 31.4 % (40.0-50.0); HGB 10.6 g/dL (13.5-17.5); MCH 28.9 pg (27.0-33.0); MCHC 33.8 % (32.0-36.0); MCV 85.6 fL (80-95); MPV 9.7 fL (8.0-11.0); Platelet Count 184 10^3/uL (130-400); RBC 3.67 10^6/uL (4.36-5.78); RDW 12.7 % (11.8-14.1); RDW-SD 39.4 fL; WBC 8.41 10^3/uL (4.4-10.8)
[2021-05-08 14:02] LABS: Hemoglobin A1C 7.4 % (<5.7)
[2021-05-08 14:47] LABS: ALT 19 U/L (16-63); AST 12 U/L (15-37); Albumin 3.8 g/dL (3.4-5.0); Alkaline Phosphatase 63 U/L (46-116); Anion Gap 8.6 mmol/L (3-11); BUN 40 mg/dL (7-18); Bilirubin, Total 0.4 mg/dL (0.2-1.0); CO2 28.4 mmol/L (21.0-32.0); Calcium 10.7 mg/dL (8.5-10.1); Chloride 105 mmol/L (98-107); Glucose 120 mg/dL (74-106); Potassium 3.8 mmol/L (3.5-5.1); Sodium 142 mmol/L (136-145); Total Protein 7.4 g/dL (6.4-8.2)
[2021-05-08 14:54] LABS: CREATININE 4.1 mg/dL (0.70-1.30)
[2021-05-08 15:06] LABS: Calculated LDL 87 mg/dL (<100); Cholesterol 163 mg/dL (<200); HDL Cholesterol 36 mg/dL (40-60); Triglyceride 200 mg/dL (<150)
== END 2021-05-08 03:26 | disposition home or self-care (01) ==
LOC: LBO 03:25
PROVIDERS: PCP Family Medicine; Visit Provider Family Medicine
DX: I63.9 Cerebral infarction, unspecified (principal); E11.9 Type 2 diabetes mellitus without complications; Z79.4 Long term (current) use of insulin
CPT/HCPCS: 36415; 80053; 80061; 85027; 83036

== ENCOUNTER 2021-05-08 16:49 | Emergency (ER) | payer MEDICARE, SELFPAY ==
--- NOTE | 2021-05-08 17:00 | RT.EKG_ITS ---
APPROVED REPORT Exam: Resting ECG Reason for Exam: abnormal labs Patient Location: E HR:57 bpm ECG Measurements Heart Rate 57 AXIS KS 167 P 25 QRSd 80 QRS -1 QT 396 T -4 QTc 387 Conclusion Sinus bradycardia...rate< 60 Borderline T abnormalities, diffuse leads...T flat/neg
[2021-05-08 17:03] VITALS: BP 159/76; PULSE 74; RESP 18; TEMP 36.2; O2SAT 96
[2021-05-08 18:28] LABS: Bilirubin Negative (Negative); Blood Trace-intact (Negative); Clarity Clear (Clear); Glucose Negative (Negative); Ketones Negative (Negative); Leukocyte Esterase Small (Negative); Nitrite Negative (Negative); Specific Gravity 1.015 (1.005-1.025); Urobilinogen 0.2 EU/dL (Up TO 0.2); pH 6.5 (5-8)
[2021-05-08 18:35] LABS: Bacteria Few HPF (Negative); C & S Indicated? No; Casts Negative LPF (Negative); Crystals Negative HPF (Negative); Epithelial Cells Few HPF (Negative); Mucus Trace (Negative); RBC 0-2 HPF (0-2)
[2021-05-08 18:37] LABS: Abs Immature Grans 0.03 10^3/uL (0.0-0.06); Absolute Basophil Count 0.04 10^3/uL (0.0-0.2); Absolute Eosinophil Count 0.12 10^3/uL (0.0-0.7); Absolute Lymphocyte Count 2.62 10^3/uL (1.2-3.4); Absolute Monocyte Count 0.77 10^3/uL (0.1-0.8); Absolute Neutrophil Count 5.19 10^3/uL (1.2-6.7); Basophils % 0.5; Eosinophils % 1.4; HCT 32.3 % (40.0-50.0); HGB 10.8 g/dL (13.5-17.5); Immature Grans % 0.3; Lymphocytes % 29.9; MCH 28.6 pg (27.0-33.0); MCHC 33.4 % (32.0-36.0); MCV 85.7 fL (80-95); MPV 9.6 fL (8.0-11.0); Monocytes % 8.8; Neutrophils % 59.1; Nucleated RBC 0 %; Platelet Count 200 10^3/uL (130-400); RBC 3.77 10^6/uL (4.36-5.78); RDW 12.7 % (11.8-14.1); RDW-SD 39.7 fL; WBC 8.77 10^3/uL (4.4-10.8)
[2021-05-08 18:44] LABS: BE (Venous) 3 mmol/L (-2-3); HCO3 (Venous) 29 mmol/L (23-28); O2 Sat (Venous) 42 %; TCO2 (Venous) 27 mmol/L (24-29); pCO2 (Venous) 52 mmHg (41-51); pH (Venous) 7.35 (7.31-7.41); pO2 (Venous) 24 mmHg
[2021-05-08] MEDS: Normal Saline 250 ML IV (18:44)
[2021-05-08 18:55] VITALS: BP 174/78; PULSE 70; RESP 18; TEMP 36.7; O2SAT 95
[2021-05-08 19:25] LABS: ALT 22 U/L (16-63); AST 14 U/L (15-37); Albumin 4.1 g/dL (3.4-5.0); Alkaline Phosphatase 67 U/L (46-116); BUN 42 mg/dL (7-18); Bilirubin, Total 0.3 mg/dL (0.2-1.0); Calcium 11.1 mg/dL (8.5-10.1); Chloride 104 mmol/L (98-107); Estimated GFR 14.92 (mL/min/1.73m2); Glucose 104 mg/dL (74-106); Magnesium 1.7 mg/dL (1.8-2.4); Potassium 3.7 mmol/L (3.5-5.1); Sodium 139 mmol/L (136-145); Total Protein 7.8 g/dL (6.4-8.2)
--- NOTE | 2021-05-08 19:44 | ED.GENADUL_ITS ---
Discharge Plan Disposition Patient Disposition: HOME Condition: Stable Discharge Details Clinical Impression: Acute on chronic kidney failure Primary Care Provider: Shelli Blackmon ED Provider: Cholo Troncoso Home Meds and New Rx's Prescriptions: Continued famotidine [Pepcid AC] 20 mg tablet 20 mg PO DAILY PRN0RF calcium carbonate [Tums] 200 mg calcium (500 mg) tablet,chewable 200 mg PO BID PRN0RF carvedilol 3.125 mg tablet 3.125 mg PO BID Qty: 180 4RF folic acid 1 mg tablet 1 mg PO DAILY Qty: 90 4RF (DME) lancing device [Lancing System] Misc See Rx Instructions .ROUTE .MEDSUPPLY Qty: 1 0RF Label Comments: ONE TOUCH DELICA Rx Instructions: As directed aspirin 81 mg tablet,chewable 81 mg PO DAILY 0RF lidocaine 4 % gel 1 applic TP BID PRN (Reason: pain) Qty: 113 1RF (DME) blood sugar diagnostic Strip See Dose Instructions .ROUTE .MEDSUPPLY Qty: 100 4RF Dose Instruction: One Daily Label Comments: ONE TOUCH ULTRA Rx Instructions: Once daily testing E11.9 (DME) blood-glucose meter Misc See Rx Instructions .ROUTE .MEDSUPPLY Qty: 1 0RF Rx Instructions: E11.9. One Touch Ultra Meter ergocalciferol (vitamin D2) 1,250 mcg (50,000 unit) capsule 50,000 unit PO QWEEK Qty: 13 4RF (DME) lancets 28 gauge misc 1 ea Sub-Q BID Qty: 100 4RF Rx Instructions: ONE TOUCH ultra soft lancet E11.9 daily testing (DME) pen needle, diabetic 31 gauge x 1/3 needle 1 ea Miscellaneous DAILY Qty: 100 5RF Label Comments: BD MINI PEN NEEDLE Rx Instructions: One Daily E11.9 cyanocobalamin (vitamin B-12) [Vitamin B-12] 500 mcg Tablet 1,000 mcg PO DAILY Qty: 30 1RF Lantus Solostar U-100 Insulin 100 unit/mL (3 mL) insulin pen 20 unit subcut DAILY 0RF Held rosuvastatin 5 mg tablet 5 mg PO DAILY Qty: 30 4RF Hold Instructions: Please discuss with your primary care provider before restarting this medication. ezetimibe [Zetia] 10 mg tablet 10 mg PO DAILY Qty: 90 4RF Hold Instructions: Please discuss this med with your primary care provider before restarting Discharge Instructions Additional Instructions: Please keep your follow-up appoint with your primary care provider for review of your medication and your side effects. It is important that you stay hydrated and feel free to return to the emergency department for any significant worsening of symptoms such as shortness of breath, chest pain, nausea vomiting or any concerns you may have. Referrals: Shelli Blackmon MD, [place] [Primary Care Provider] - 1 day Medical Decision Making Patient presenting to the emergency department for chief complaint of abnormal labs. Patient reports worsening renal function and sent here due to abnormal lab. Patient says he is asymptomatic but does report that he recently stopped taking some of his medications due to some of the side effects. He does have follow-up with primary care provider tomorrow. Physical exam is unremarkable. EKG performed and shows sinus bradycardia with rate of 57 otherwise no significant worrisome ST changes given patient is here for acute renal failure. Please see attending physician's full interpretation of EKG. Review of labs show a baseline anemia without significant change from previous results. No signs of acidosis, no significant electrolyte abnormality including specifically potassium. Patient does have slightly low magnesium at 1.7 but do not feel this needs emergent treatment, urine is unremarkable except for trace blood and small amount of leukocyte Estrace but no significant WBCs so culture not indicated and patient is asymptomatic. Given that patient has no signs of volume overload, or worrisome electrolyte abnormalities, and is asymptomatic with typical GFR being in the 20s and today being 14 I do feel that patient is appropriate to follow-up with primary care provider tomorrow to discuss further referral to nephrology as needed. Did encourage patient to discuss medications with primary care provider. Patient was informed of the elevated blood pressure today which he states he is aware that his blood pressure has been elevated given that he stopped his blood pressure medications. Patient is only taking his insulin and baby aspirin at this time. After discussion of diagnosis and plan of care patient has no further needs, questions, or concerns and states clear understanding to return to the emergency department for any worsening symptoms. Lab Data Labs: Laboratory Tests Range/Units 05/08/21 05/08/21 05/08/21 18:15 18:30 18:30 WBC (4.4-10.8) 10^3/uL RBC (4.36-5.78) 10^6/uL Hgb (13.5-17.5) g/dL Hct (40.0-50.0) % MCV (80-95) fL MCH (27.0-33.0) pg MCHC (32.0-36.0) % RDW (11.8-14.1) % Plt Count (130-400) 10^3/uL MPV (8.0-11.0) fL Immature Gran % Neutrophils % Lymphocytes % Monocytes % Eosinophils % Basophils % Nucleated RBC % % Absolute Neutrophils (1.2-6.7) 10^3/uL Absolute Lymphocytes (1.2-3.4) 10^3/uL Absolute Monocytes (0.1-0.8) 10^3/uL Absolute Eosinophils (0.0-0.7) 10^3/uL Absolute Basophils (0.0-0.2) 10^3/uL VBG pH (7.31-7.41) 7.35 VBG pCO2 (41-51) mmHg 52 H VBG pO2 mmHg 24 VBG HCO3 (23-28) mmol/L 29 H VBG Total CO2 (24-29) mmol/L 27 VBG O2 Saturation % 42 VBG Base Excess (-2-3) mmol/L 3 Sodium (136-145) mmol/L 139 Potassium (3.5-5.1) mmol/L 3.7 Chloride (98-107) mmol/L 104 Carbon Dioxide (21.0-32.0) mmol/L 26.0 Anion Gap (3-11) mmol/L 9.0 BUN (7-18) mg/dL 42 H Creatinine (0.70-1.30) mg/dL 4.0 H* Estimated GFR/1.73 m2 (mL/min/1.73m2) 14.92 Glucose (74-106) mg/dL 104 Calcium (8.5-10.1) mg/dL 11.1 H Magnesium (1.8-2.4) mg/dL 1.7 L Total Bilirubin (0.2-1.0) mg/dL 0.3 AST (15-37) U/L 14 L ALT (16-63) U/L 22 Alkaline Phosphatase (46-116) U/L 67 Total Protein (6.4-8.2) g/dL 7.8 Albumin (3.4-5.0) g/dL 4.1 Urine Color (Yellow) Yellow Urine Clarity (Clear) Clear Urine pH (5-8) 6.5 Ur Specific [place] (1.005-1.025) 1.015 Urine Protein (Negative) mg/dL Negative Urine Ketones (Negative) mg/dL Negative Urine Blood (Negative) Trace-intact H Urine Nitrite (Negative) Negative Urine Bilirubin (Negative) Negative Urine Urobilinogen (Up TO 0.2) EU/dL 0.2 Ur Leukocyte Esterase (Negative) Small H Urine RBC (0-2) HPF 0-2 Urine WBC (0-5) HPF 3-5 Ur Epithelial Cells (Negative) HPF Few Urine Crystals (Negative) HPF Negative Urine Bacteria (Negative) HPF Few Urine Casts (Negative) LPF Negative Urine Mucus (Negative) Trace Ur Culture Indicated? No Urine Glucose (Negative) mg/dL Negative Range/Units 05/08/21 18:30 WBC (4.4-10.8) 10^3/uL 8.77 RBC (4.36-5.78) 10^6/uL 3.77 L Hgb (13.5-17.5) g/dL 10.8 L Hct (40.0-50.0) % 32.3 L MCV (80-95) fL 85.7 MCH (27.0-33.0) pg 28.6 MCHC (32.0-36.0) % 33.4 RDW (11.8-14.1) % 12.7 Plt Count (130-400) 10^3/uL 200 MPV (8.0-11.0) fL 9.6 Immature Gran % 0.3 Neutrophils % 59.1 Lymphocytes % 29.9 Monocytes % 8.8 Eosinophils % 1.4 Basophils % 0.5 Nucleated RBC % % 0 Absolute Neutrophils (1.2-6.7) 10^3/uL 5.19 Absolute Lymphocytes (1.2-3.4) 10^3/uL 2.62 Absolute Monocytes (0.1-0.8) 10^3/uL 0.77 Absolute Eosinophils (0.0-0.7) 10^3/uL 0.12 Absolute Basophils (0.0-0.2) 10^3/uL 0.04 VBG pH (7.31-7.41) VBG pCO2 (41-51) mmHg VBG pO2 mmHg VBG HCO3 (23-28) mmol/L VBG Total CO2 (24-29) mmol/L VBG O2 Saturation % VBG Base Excess (-2-3) mmol/L Sodium (136-145) mmol/L Potassium (3.5-5.1) mmol/L Chloride (98-107) mmol/L Carbon Dioxide (21.0-32.0) mmol/L Anion Gap (3-11) mmol/L BUN (7-18) mg/dL Creatinine (0.70-1.30) mg/dL Estimated GFR/1.73 m2 (mL/min/1.73m2) Glucose (74-106) mg/dL Calcium (8.5-10.1) mg/dL Magnesium (1.8-2.4) mg/dL Total Bilirubin (0.2-1.0) mg/dL AST (15-37) U/L ALT (16-63) U/L Alkaline Phosphatase (46-116) U/L Total Protein (6.4-8.2) g/dL Albumin (3.4-5.0) g/dL Urine Color (Yellow) Urine Clarity (Clear) Urine pH (5-8) Ur Specific [place] (1.005-1.025) Urine Protein (Negative) mg/dL Urine Ketones (Negative) mg/dL Urine Blood (Negative) Urine Nitrite (Negative) Urine Bilirubin (Negative) Urine Urobilinogen (Up TO 0.2) EU/dL Ur Leukocyte Esterase (Negative) Urine RBC (0-2) HPF Urine WBC (0-5) HPF Ur Epithelial Cells (Negative) HPF Urine Crystals (Negative) HPF Urine Bacteria (Negative) HPF Urine Casts (Negative) LPF Urine Mucus (Negative) Ur Culture Indicated? Urine Glucose (Negative) mg/dL HPI General Mode of arrival: ambulatory . Date/Time Provider Initiated Documentation: 05/08/21 16:57 . Limitations to Documentation: no limitations . Information obtained by: patient . History of Present Illness 71 year old M presents to the emergency department with the chief complaint of Abnormal lab values/kidney function, Quality is described as other (Denies pain or discomfort), Patient started experiencing this hour(s) (Labs drawn 5 hours ago) improves with No relieving factors improve symptom(s), No exacerbating factors reported . Patient notes no other symptoms.. Patient did receive the following treatments prior to arrival, none Related Data Home Medications Medication Instructions Recorded Confirmed calcium carbonate 200 mg calcium 200 mg PO BID PRN 06/16/19 04/12/21 (500 mg) chewable tablet (Tums) famotidine 20 mg tablet (Pepcid AC) 20 mg PO DAILY PRN 06/16/19 04/12/21 lidocaine 4 % topical gel 1 applic TP BID PRN #113 gm 10/23/19 04/12/21 blood sugar diagnostic #100 each 09/26/20 04/12/21 blood-glucose meter #1 ea 09/27/20 04/12/21 lancing device (Lancing System) #1 ea 10/11/20 04/12/21 cyanocobalamin (vitamin B-12) 500 1,000 mcg PO DAILY #30 tab 11/28/20 04/12/21 mcg tablet (Vitamin B-12) aspirin 81 mg chewable tablet 81 mg PO DAILY 12/13/20 05/08/21 ergocalciferol (vitamin D2) 1,250 50,000 unit PO QWEEK #13 cap 12/22/20 04/12/21 mcg (50,000 unit) capsule carvedilol 3.125 mg tablet 3.125 mg PO BID #180 tab 01/24/21 04/12/21 ezetimibe 10 mg tablet (Zetia) 10 mg PO DAILY #90 tab 01/24/21 04/12/21 folic acid 1 mg tablet 1 mg PO DAILY #90 tab 01/24/21 04/12/21 rosuvastatin 5 mg tablet 5 mg PO DAILY #30 tab 01/24/21 04/12/21 lancets 28 gauge #100 ea 02/27/21 04/12/21 pen needle, diabetic 31 gauge x #100 each 02/27/21 04/12/21 1/3 insulin glargine 100 unit/mL (3 20 unit SUBCUT DAILY 05/08/21 05/08/21 mL) subcutaneous pen (Lantus Solostar U-100 Insulin) Previous Rx's Medication Instructions Recorded lidocaine 4 % topical gel 1 applic TP BID PRN #113 gm 10/23/19 blood sugar diagnostic #100 each 09/26/20 blood-glucose meter #1 ea 09/27/20 cyanocobalamin (vitamin B-12) 500 1,000 mcg PO DAILY #30 tab 11/28/20 mcg tablet (Vitamin B-12) ergocalciferol (vitamin D2) 1,250 50,000 unit PO QWEEK #13 cap 12/22/20 mcg (50,000 unit) capsule carvedilol 3.125 mg tablet 3.125 mg PO BID #180 tab 01/24/21 ezetimibe 10 mg tablet (Zetia) 10 mg PO DAILY #90 tab 01/24/21 folic acid 1 mg tablet 1 mg PO DAILY #90 tab 01/24/21 rosuvastatin 5 mg tablet 5 mg PO DAILY #30 tab 01/24/21 lancets 28 gauge #100 ea 02/27/21 pen needle, diabetic 31 gauge x #100 each 02/27/2102/20 Allergies Allergy/AdvReac Type Severity Reaction Status Date / Time metformin AdvReac Severe diarrhea Verified 05/08/21 17:05 atorvastatin AdvReac Intermediate leg aches Verified 05/08/21 17:05 pantoprazole AdvReac Intermediate nausea and Verified 05/08/21 17:05 vomiting General Stated Complaint: [employer] APRIL: 3 Review of Systems Constitutional Constitutional: Denies chills, Denies fatigue, Denies fever(s), Denies headache(s) and Denies weakness ENT Ears, Nose, Mouth, and Throat: Denies dizziness and Denies headache(s) Cardiovascular Cardiovascular: Denies chest pain, Denies syncope, Denies pedal edema, Denies edema, Denies palpitations, Denies dyspnea and Denies dyspnea on exertion Respiratory Respiratory: Denies chest congestion, Denies cough, Denies dyspnea and Denies dyspnea on exertion Gastrointestinal Gastrointestinal: Denies abdominal pain, Denies diarrhea, Denies nausea and Denies vomiting Genitourinary Genitourinary: Denies oliguria, Denies difficulty urinating and Denies dysuria Musculoskeletal Musculoskeletal: Denies back pain and Denies muscle cramps Integumentary/Breasts Skin/Breast: Denies rash Neurologic Neurologic: Denies dizziness, Denies syncope, Denies headache(s) and Denies weakness Endocrine Endocrine: Denies fatigue and Denies palpitations PFSH All Active Problems Acute on chronic kidney failure (Acute) Vitamin B12 deficiency (Acute) Memory loss (Acute) Right leg weakness (Acute) Right hemiparesis (Acute) IDDM (insulin dependent diabetes mellitus) (Chronic) Vertigo (Chronic) Normocytic anemia (Chronic) Acute CVA (cerebrovascular accident) (Acute) Erectile dysfunction (Acute) Schatzki's ring (Acute) Dysphagia (Acute) BPH (benign prostatic hyperplasia) (Chronic) Right lumbar radiculopathy (Acute) Chronic renal insufficiency, stage III (moderate) (Chronic) Imbalance (Acute) Stroke (Chronic) 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 2 diabetes mellitus (Acute ~08/06/18) 08/06/18[place] [place] Esotropia (Chronic) Nephritis (Chronic) Seasonal allergic rhinitis (Chronic) Insomnia (Chronic) Gout of left knee (Chronic) GERD (gastroesophageal reflux disease) (Chronic) Gastroparesis diabeticorum (Chronic) Tinnitus (Chronic) Presbyesophagus (Chronic 04/11/17) Phimosis (Chronic 11/27/16) Hyperlipidemia (Chronic) Family history of malignant neoplasm of prostate (Chronic) brother Essential hypertension (Chronic 02/05/13) Dyspepsia (Chronic 10/11/17) Diabetic macular edema (Chronic 01/05/12) Chronic pain syndrome (Chronic) Medical History Closed fracture of clavicle Fatigue Fatigue Hypercalcemia pth pending Hypomagnesemia Moderate nonproliferative diabetic retinopathy (01/04/11) Optical expressions; severe NPDR; OU w/DME OD 2013 Ref[place] [facility] [place] 01/05/2014: [facility] [place] Eval Type II DM with diabetic retinopathy and macular edema with moderatate nonproliferative retinopathy. Right foot pain Serum calcium elevated Stricture and stenosis of esophagus Weakness Surgical History Extraction of cataract [facility] [place] PROCEDURES Strabismus surgery as child Family History Mother , 70s RA (rheumatoid arthritis) CHF (congestive heart failure) Depression Heart disease Father , 70s Alcohol abuse Psoriasis Brother , 70s Diabetes Alcohol abuse Hyperlipidemia Myocardial infarction Neoplasm PROSTATE Sister , 70s No problems noted. Social History Smoking/Tobacco Use Status: Never Smoking risk assessment performed?: Yes Alcohol Intake: current Alcohol Intake frequency: 0-2 drinks per day Alcohol type: beer Drug use: Never Substance use type: does not use Caregiver/Support person: No Household members: spouse Housing: house Communication Needs: None current occupation: [employer] Pets and animals: No Sexually active: No Do you think of yourself as: straight/heterosexual Current gender identity: male What is your relationship status?: How often do you talk on the phone with friends or family?: once per week How often do you get together with friends or relatives?: twice per week How often do you attend zoroastrian or uatsdin services?: decline to answer Do you belong to any clubs or organized social groups?: yes Panel score (0-1 are the most socially isolated patients): 3 What type of physical activity do you participate in: walking Duration: 15-30 minutes/day Frequency: daily Shara/Temple: Zoroastrian Special shara needs: No Seatbelt use: always Helmet use: No Drive intox or ride w/intox airport driver: No Do you feel safe in your relationship?: Yes Exam Const General: cooperative, healthy appearing, comfortable, no acute distress, not diaphoretic and not ill appearing Nutritional Appearance: average body habitus Orientation: alert, awake and oriented x3 Limitations: mental status not altered Neck Neck: normal visual inspection, trachea midline, supple and no anterior neck swelling Carotids: normal carotid upstroke and no bruits Resp Effort & Inspection: normal respiratory effort and able to speak in complete sentences Auscultation: clear to auscultation bilaterally Cardio Jugular venous pressure: no JVD Palpation: normal PMI Rate: regular rate Rhythm: regular rhythm Heart Sounds: S1 normal, S2 normal and no murmurs Bruits: no abdominal aortic bruits and no carotid bruits Pulses: radial pulses present bilaterally 2+ GI Inspection: normal to inspection Palpation: soft and nontender Auscultation: normal bowel sounds General: No CVA tenderness Skin General skin exam: no rashes or lesions noted Neuro General: patient alert, patient awake, patient oriented x3, tone normal and moves all extremities Extrem General: no pedal edema Course Vital Signs Vital signs: Vital Signs Temperature 36.2 C L 05/08/21 17:03 Pulse 74 05/08/21 17:03 Respiratory Rate 18 05/08/21 17:03 Blood Pressure 159/76 H 05/08/21 17:03 Pulse Oximetry 96 05/08/21 17:03 Temperature 36.7 C 05/08/21 18:55 Temperature Source Oral 05/08/21 18:55 Pulse 70 05/08/21 18:55 Respiratory Rate 18 05/08/21 18:55 Respiratory Effort Non-Labored 05/08/21 18:50 Respiratory Depth Normal 05/08/21 18:50 Respiratory Pattern Normal 05/08/21 18:50 Blood Pressure 174/78 H 05/08/21 18:55 Blood Pressure Position Sitting 05/08/21 17:03 Pulse Oximetry 95 05/08/21 18:55 Oxygen Delivery Method Room Air 05/08/21 18:55 Oxygen Flow Rate 0 05/08/21 18:55 Pain Level 0 05/08/21 18:55 Lab/Test Results Lab/Test Results: Laboratory Tests Range/Units 05/08/21 05/08/21 05/08/21 18:15 18:30 18:30 WBC (4.4-10.8) 10^3/uL RBC (4.36-5.78) 10^6/uL Hgb (13.5-17.5) g/dL Hct (40.0-50.0) % MCV (80-95) fL MCH (27.0-33.0) pg MCHC (32.0-36.0) % RDW (11.8-14.1) % Plt Count (130-400) 10^3/uL MPV (8.0-11.0) fL Immature Gran % Neutrophils % Lymphocytes % Monocytes % Eosinophils % Basophils % Nucleated RBC % % Absolute Neutrophils (1.2-6.7) 10^3/uL Absolute Lymphocytes (1.2-3.4) 10^3/uL Absolute Monocytes (0.1-0.8) 10^3/uL Absolute Eosinophils (0.0-0.7) 10^3/uL Absolute Basophils (0.0-0.2) 10^3/uL VBG pH (7.31-7.41) 7.35 VBG pCO2 (41-51) mmHg 52 H VBG pO2 mmHg 24 VBG HCO3 (23-28) mmol/L 29 H VBG Total CO2 (24-29) mmol/L 27 VBG O2 Saturation % 42 VBG Base Excess (-2-3) mmol/L 3 Sodium (136-145) mmol/L 139 Potassium (3.5-5.1) mmol/L 3.7 Chloride (98-107) mmol/L 104 Carbon Dioxide (21.0-32.0) mmol/L 26.0 Anion Gap (3-11) mmol/L 9.0 BUN (7-18) mg/dL 42 H Creatinine (0.70-1.30) mg/dL 4.0 H* Estimated GFR/1.73 m2 (mL/min/1.73m2) 14.92 Glucose (74-106) mg/dL 104 Calcium (8.5-10.1) mg/dL 11.1 H Magnesium (1.8-2.4) mg/dL 1.7 L Total Bilirubin (0.2-1.0) mg/dL 0.3 AST (15-37) U/L 14 L ALT (16-63) U/L 22 Alkaline Phosphatase (46-116) U/L 67 Total Protein (6.4-8.2) g/dL 7.8 Albumin (3.4-5.0) g/dL 4.1 Urine Color (Yellow) Yellow Urine Clarity (Clear) Clear Urine pH (5-8) 6.5 Ur Specific [place] (1.005-1.025) 1.015 Urine Protein (Negative) mg/dL Negative Urine Ketones (Negative) mg/dL Negative Urine Blood (Negative) Trace-intact H Urine Nitrite (Negative) Negative Urine Bilirubin (Negative) Negative Urine Urobilinogen (Up TO 0.2) EU/dL 0.2 Ur Leukocyte Esterase (Negative) Small H Urine RBC (0-2) HPF 0-2 Urine WBC (0-5) HPF 3-5 Ur Epithelial Cells (Negative) HPF Few Urine Crystals (Negative) HPF Negative Urine Bacteria (Negative) HPF Few Urine Casts (Negative) LPF Negative Urine Mucus (Negative) Trace Ur Culture Indicated? No Urine Glucose (Negative) mg/dL Negative Range/Units 05/08/21 18:30 WBC (4.4-10.8) 10^3/uL 8.77 RBC (4.36-5.78) 10^6/uL 3.77 L Hgb (13.5-17.5) g/dL 10.8 L Hct (40.0-50.0) % 32.3 L MCV (80-95) fL 85.7 MCH (27.0-33.0) pg 28.6 MCHC (32.0-36.0) % 33.4 RDW (11.8-14.1) % 12.7 Plt Count (130-400) 10^3/uL 200 MPV (8.0-11.0) fL 9.6 Immature Gran % 0.3 Neutrophils % 59.1 Lymphocytes % 29.9 Monocytes % 8.8 Eosinophils % 1.4 Basophils % 0.5 Nucleated RBC % % 0 Absolute Neutrophils (1.2-6.7) 10^3/uL 5.19 Absolute Lymphocytes (1.2-3.4) 10^3/uL 2.62 Absolute Monocytes (0.1-0.8) 10^3/uL 0.77 Absolute Eosinophils (0.0-0.7) 10^3/uL 0.12 Absolute Basophils (0.0-0.2) 10^3/uL 0.04 VBG pH (7.31-7.41) VBG pCO2 (41-51) mmHg VBG pO2 mmHg VBG HCO3 (23-28) mmol/L VBG Total CO2 (24-29) mmol/L VBG O2 Saturation % VBG Base Excess (-2-3) mmol/L Sodium (136-145) mmol/L Potassium (3.5-5.1) mmol/L Chloride (98-107) mmol/L Carbon Dioxide (21.0-32.0) mmol/L Anion Gap (3-11) mmol/L BUN (7-18) mg/dL Creatinine (0.70-1.30) mg/dL Estimated GFR/1.73 m2 (mL/min/1.73m2) Glucose (74-106) mg/dL Calcium (8.5-10.1) mg/dL Magnesium (1.8-2.4) mg/dL Total Bilirubin (0.2-1.0) mg/dL AST (15-37) U/L ALT (16-63) U/L Alkaline Phosphatase (46-116) U/L Total Protein (6.4-8.2) g/dL Albumin (3.4-5.0) g/dL Urine Color (Yellow) Urine Clarity (Clear) Urine pH (5-8) Ur Specific [place] (1.005-1.025) Urine Protein (Negative) mg/dL Urine Ketones (Negative) mg/dL Urine Blood (Negative) Urine Nitrite (Negative) Urine Bilirubin (Negative) Urine Urobilinogen (Up TO 0.2) EU/dL Ur Leukocyte Esterase (Negative) Urine RBC (0-2) HPF Urine WBC (0-5) HPF Ur Epithelial Cells (Negative) HPF Urine Crystals (Negative) HPF Urine Bacteria (Negative) HPF Urine Casts (Negative) LPF Urine Mucus (Negative) Ur Culture Indicated? Urine Glucose (Negative) mg/dL
[2021-05-08 20:06] VITALS: BP 175/93; PULSE 59; RESP 16; O2SAT 95
[2021-05-09 15:07] LABS: HCT 32.5 % (40.0-50.0); HGB 11.1 g/dL (13.5-17.5); MCH 29.2 pg (27.0-33.0); MCHC 34.2 % (32.0-36.0); MCV 85.5 fL (80-95); MPV 9.6 fL (8.0-11.0); Platelet Count 209 10^3/uL (130-400); RDW 12.8 % (11.8-14.1); RDW-SD 39.5 fL; WBC 7.87 10^3/uL (4.4-10.8)
[2021-05-09 15:35] LABS: ALT 19 U/L (16-63); AST 9 U/L (15-37); Albumin 3.9 g/dL (3.4-5.0); Alkaline Phosphatase 66 U/L (46-116); Anion Gap 8.9 mmol/L (3-11); BUN 40 mg/dL (7-18); Bilirubin, Total 0.3 mg/dL (0.2-1.0); CO2 27.1 mmol/L (21.0-32.0); Calcium 10.7 mg/dL (8.5-10.1); Chloride 104 mmol/L (98-107); Estimated GFR 15.83 (mL/min/1.73m2); Glucose 156 mg/dL (74-106); Magnesium 1.6 mg/dL (1.8-2.4); PHOSPHORUS 4.2 mg/dL (2.6-4.7); Potassium 3.8 mmol/L (3.5-5.1); Sodium 140 mmol/L (136-145); Total Protein 7.6 g/dL (6.4-8.2)
[2021-05-09 15:38] LABS: CREATININE 3.8 mg/dL (0.70-1.30)
== END 2021-05-08 20:13 | disposition home or self-care (01) ==
PROVIDERS: Emergency Provider Nurse Practitioner Family; PCP Family Medicine
DX: I12.9 Hypertensive chronic kidney disease with stage 1 through stage 4 chronic kidney disease, or unspecified chronic kidney disease; E11.22 Type 2 diabetes mellitus with diabetic chronic kidney disease; N18.9 Chronic kidney disease, unspecified; N17.9 Acute kidney failure, unspecified
CPT/HCPCS: 36415; 80053; 82805; 85027; 93005; 96360; 99284; 81003; 81015; 83735; 84100; 85025; 93010

== ENCOUNTER 2021-05-09 17:05 | Outpatient (CLI) | payer MEDICARE, SELFPAY | END 2021-05-09 17:06 | disposition home or self-care (01) | LOC: LBO 17:06 | PROVIDERS: PCP Family Medicine; Visit Provider Family Medicine ==

== ENCOUNTER 2021-05-10 00:25 | Outpatient (CLI) | payer MEDICARE, SELFPAY ==
--- NOTE | 2021-05-10 06:45 | DI.US_ITS ---
Exam(s) US RENAL EXAM: US RENAL CLINICAL HISTORY: elevated creatinine,acute kidney failure,ckd,n18.9,n17.9 TECHNIQUE: Ultrasound of both kidneys performed using standard protocol. COMPARISON: US US ECHOCARDIOGRAM W BUBBLES from 11/24/2020 FINDINGS: Both kidneys exhibit normal size and cortical thickness and normal corticomedullary differentiation. There are no cysts nor masses in either kidney. No obvious intrarenal calculi. No hydronephrosis n or perinephric fluid URINARY BLADDER: Prevoid volume is 2022 cc Postvoid volume is 63 cc No evidence of bladder mass nor diverticuli. Ureterovesical jets: Left was seen, right was not. IMPRESSION: 1. Unremarkable appearing kidneys. No hydronephrosis. 2. No bladder mass nor bladder diverticulum evident. Postvoid volume in the urinary bladder= 63 cc DATA REPOSITORY:
== END 2021-05-10 00:45 ==
LOC: DI 00:26
PROVIDERS: PCP Family Medicine; Visit Provider Family Medicine
DX: N17.9 Acute kidney failure, unspecified (principal); N18.9 Chronic kidney disease, unspecified
CPT/HCPCS: 76770

== ENCOUNTER 2021-05-16 02:51 | Outpatient (CLI) | payer MEDICARE, SELFPAY ==
[2021-05-16 12:19] LABS: HCT 31.9 % (40.0-50.0); HGB 10.5 g/dL (13.5-17.5); MCH 28.5 pg (27.0-33.0); MCHC 32.9 % (32.0-36.0); MCV 86.7 fL (80-95); MPV 9.9 fL (8.0-11.0); Platelet Count 195 10^3/uL (130-400); RBC 3.68 10^6/uL (4.36-5.78); RDW-SD 40.2 fL
[2021-05-16 13:39] LABS: ALT 21 U/L (16-63); AST 11 U/L (15-37); Albumin 3.6 g/dL (3.4-5.0); Alkaline Phosphatase 68 U/L (46-116); Anion Gap 7.2 mmol/L (3-11); BUN 38 mg/dL (7-18); Bilirubin, Total 0.3 mg/dL (0.2-1.0); CO2 29.8 mmol/L (21.0-32.0); CREATININE 3.3 mg/dL (0.70-1.30); Calcium 10.5 mg/dL (8.5-10.1); Chloride 105 mmol/L (98-107); Estimated GFR 18.63 (mL/min/1.73m2); Glucose 135 mg/dL (74-106); Potassium 4.2 mmol/L (3.5-5.1); Sodium 142 mmol/L (136-145); Total Protein 7.3 g/dL (6.4-8.2)
== END 2021-05-16 02:52 | disposition home or self-care (01) ==
LOC: LBO 02:51
PROVIDERS: PCP Family Medicine; Visit Provider Family Medicine
DX: D64.9 Anemia, unspecified (principal); N18.9 Chronic kidney disease, unspecified; N17.9 Acute kidney failure, unspecified; E11.9 Type 2 diabetes mellitus without complications; E78.5 Hyperlipidemia, unspecified
CPT/HCPCS: 36415; 80053; 85027

== ENCOUNTER → 2021-06-20 13:07 | Outpatient (BNVA) | payer MEDICARE, SELFPAY | PROVIDERS: PCP Family Medicine; Visit Provider Psychiatry & Neurology Neurology | DX: I69.351 Hemiplegia and hemiparesis following cerebral infarction affecting right dominant side (principal); Z79.82 Long term (current) use of aspirin; I67.89 Other cerebrovascular disease; R41.3 Other amnesia; R42 Dizziness and giddiness; I10 Essential (primary) hypertension | CPT/HCPCS: 99214 ==

== ENCOUNTER 2021-10-18 02:45 | Outpatient (CLI) | payer MEDICARE, SELFPAY ==
[2021-10-18 12:56] LABS: Anion Gap 8.9 mmol/L (3-11); BUN 47 mg/dL (7-18); CO2 28.1 mmol/L (21.0-32.0); Calcium 10.6 mg/dL (8.5-10.1); Chloride 102 mmol/L (98-107); Estimated GFR 13.32 (mL/min/1.73m2); Glucose 224 mg/dL (74-106); Potassium 4.3 mmol/L (3.5-5.1); Sodium 139 mmol/L (136-145)
[2021-10-18 13:20] LABS: CREATININE 4.5 mg/dL (0.70-1.30)
== END 2021-10-18 02:46 | disposition home or self-care (01) ==
LOC: LOS 02:45
PROVIDERS: PCP Family Medicine; Visit Provider Family Medicine
DX: N18.4 Chronic kidney disease, stage 4 (severe) (principal)
CPT/HCPCS: 36415; 80048

== ENCOUNTER 2021-11-07 09:40 | Outpatient (CLI) | payer MEDICARE, SELFPAY ==
[2021-11-07 13:00] LABS: ALT 20 U/L (16-63); AST 11 U/L (15-37); Albumin 3.4 g/dL (3.4-5.0); Alkaline Phosphatase 74 U/L (46-116); BUN 41 mg/dL (7-18); Bilirubin, Total 0.3 mg/dL (0.2-1.0); Calcium 10.7 mg/dL (8.5-10.1); Chloride 103 mmol/L (98-107); Estimated GFR 14.47 (mL/min/1.73m2); Glucose 164 mg/dL (74-106); Potassium 4.4 mmol/L (3.5-5.1); Sodium 141 mmol/L (136-145); Total Protein 7.8 g/dL (6.4-8.2)
[2021-11-07 13:10] LABS: CREATININE 4.2 mg/dL (0.70-1.30)
== END 2021-11-07 09:41 | disposition home or self-care (01) ==
LOC: LOS 09:41
PROVIDERS: PCP Family Medicine; Referring Provider Family Medicine; Visit Provider Family Medicine
DX: I10 Essential (primary) hypertension (principal)
CPT/HCPCS: 36415; 80053

== ENCOUNTER 2021-12-06 01:24 | Outpatient (CLI) | payer MEDICARE, SELFPAY ==
--- NOTE | 2021-12-06 10:15 | DI.US_ITS ---
Exam(s) US RENAL EXAM: US RENAL CLINICAL HISTORY: CKD STAGE IV, N18.4; HYPERCALCEMIA, E83.52; MEENU, N17.9 TECHNIQUE: Ultrasound of both kidneys performed using standard protocol. COMPARISON: US US RENAL from 05/10/2021 FINDINGS: RIGHT KIDNEY: Measures 10.7 cm in length. No cysts evident. Normal cortical thickness and corticomedullary differen tiation .No solid masses No intrarenal calculi nor hydronephrosis. LEFT KIDNEY: Measures 10.7 cm in length. No cysts evident. Normal cortical thickness and corticomedullary differe ntiaion. No solids masses. No intrarenal calculi nor hydonephrosis. URINARY BLADDER: Prevoid volume is 160 cc Postvoid volume is 23 cc No evidence of bladder mass nor diverticuli. Ureterovesical jets: Left identified. Right not identified. Prostate gland: Measures 3.9 x 3.9 x 3.5 cm (28 cc volume). IMPRESSION: 1. No significant ultrasound findings in the kidneys. 2. No obstruction of the urinary tracts evident. DATA REPOSITORY:
== END 2021-12-06 01:44 ==
LOC: DI 01:24
PROVIDERS: PCP Family Medicine; Visit Provider Internal Medicine Nephrology
DX: N18.4 Chronic kidney disease, stage 4 (severe) (principal); E83.52 Hypercalcemia; N17.9 Acute kidney failure, unspecified
CPT/HCPCS: 76770

== ENCOUNTER 2021-12-13 03:23 | Outpatient (CLI) | payer MEDICARE, SELFPAY ==
[2021-12-14 11:03] LABS: Kappa Free Light Chain 9.51 mg/dL (0.33-1.94); Lambda Free Light Chain 4.47 mg/dL (0.57-2.63)
[2021-12-14 13:59] LABS: Albumin 55.8 % (55.8-66.1); Albumin g/dL 3.7 g/dL (3.6-5.2); Total Protein 6.6 g/dL (6.3-8.2)
== END 2021-12-13 03:24 | disposition home or self-care (01) ==
LOC: LOS 03:23
PROVIDERS: PCP Family Medicine; Visit Provider Internal Medicine Nephrology
DX: N18.4 Chronic kidney disease, stage 4 (severe) (principal); E83.52 Hypercalcemia
CPT/HCPCS: 36415; 83883; 84165

== ENCOUNTER 2022-06-05 07:50 | Outpatient (CLI) | payer MEDICARE, SELFPAY ==
--- NOTE | 2022-06-05 07:45 | RT.EKG_ITS ---
APPROVED REPORT Exam: Resting ECG Reason for Exam: bradycardia, dizziness Patient Location: O HR:64 bpm ECG Measurements Heart Rate 64 AXIS UT 163 P 23 QRSd 80 QRS -10 QT 403 T 10 QTc 416 Conclusion Sinus rhythm...normal P axis, V-rate 50- 99 Normal Electrocardiogram
== END 2022-06-05 07:51 | disposition home or self-care (01) ==
LOC: DI.CARD 07:50
PROVIDERS: PCP Family Medicine; Visit Provider Internal Medicine Cardiovascular Disease
DX: R00.1 Bradycardia, unspecified (principal); R42 Dizziness and giddiness
CPT/HCPCS: 93010

== ENCOUNTER → 2022-06-05 12:33 | Outpatient (BNVA) | payer MEDICARE, SELFPAY | PROVIDERS: PCP Family Medicine; Referring Provider Family Medicine; Visit Provider Internal Medicine Cardiovascular Disease | DX: Z86.73 Personal history of transient ischemic attack (TIA), and cerebral infarction without residual deficits (principal); I10 Essential (primary) hypertension; R00.1 Bradycardia, unspecified | CPT/HCPCS: 93005; 99203; 99213 ==

== ENCOUNTER 2023-03-05 11:15 | Outpatient (CLI) | payer MEDICARE, SELFPAY ==
--- NOTE | 2023-03-05 11:15 | RT.EKG_ITS ---
APPROVED REPORT Exam: Resting ECG Reason for Exam: establish care Patient Location: O HR:53 bpm ECG Measurements Heart Rate 53 AXIS WV 178 P 30 QRSd 82 QRS -8 QT 401 T -12 QTc 377 Conclusion Sinus rhythm...normal P axis, V-rate 50- 99 Borderline T abnormalities, diffuse leads...T flat/neg I have reviewed and interpreted ECG and agree with software generated interpretation.
== END 2023-03-05 11:16 | disposition home or self-care (01) ==
LOC: DI.CM 11:16
PROVIDERS: PCP Nurse Practitioner Family; Visit Provider Nurse Practitioner Family
DX: R07.9 Chest pain, unspecified (principal)
CPT/HCPCS: 93010

== ENCOUNTER → 2023-03-21 01:26 | Outpatient (CLI) | payer MEDICARE, SELFPAY ==
--- NOTE | 2023-03-21 06:30 | DI.NM_ITS ---
APPROVED REPORT Exam: Pharmacologic Patient Location: Out-Patient Room/Bed: Stress Nurse: Tomasa Galvez RN Ordering Provider:JEFFRY WHITLEY, Contact Number: [phone] BMI: 32.61 Baseline Rhythm: Sinus Bradycardia Comment: Inverted T wave lead III Indications: Exertional Chest pain Medical History Medical History: Bradycardia, anemia, weakness, hypomagnesemia, hypercalcemia, moderate nonproliferat roger diabetic neuropathy, chronic pain syndrome, HLD, GERD, imbalance, DDM, R hemiparesis, R leg weakn ess, CKD, vertigo, memory loss Cardiac Medications: Aspirin, vitamin B12, famotidine, lantus, losartan, nitro, rosuvastatin Allergies: Metformin, atorvastatin, pantoprazole Cardiac Risk Factors: Family hx, HTN, HLD, Diabetes Previous Cardiac Procedures: None Pretest Chest Pain Characteristics: None Exercise History: Sedentary Physical Disabilities: R leg weakness s/p stroke Lung Sounds: Clear to auscultation Heart Sounds: Bradycardia Stress Test Details Test: Pharmacologic stress testing performed using 0.4 mg of regadenoson per 5 mL given IV over 10 s econds. Reason for pharmacologic stress test: physical limitation. Nuclear Acquisition: Rest Tc-99m/Stress Tc-99m 1 day Rest Isotope: Tc-99m Sestamibi. Dose: 11.0 Date: 03/21/2023 Injection Time: 0840 Stress Isotope: Tc-99m Sestamibi. Dose: 32.5 Date: 03/21/2023 Injection Time: 1015 HR Resting HR Supine: 55 bpm Max Heart Rate (APMHR): 149.578429 bpm Target HR (85% APMHR): 126.233182 bpm Max HR Achieved: 75 bpm % of APMHR: 50.34 Recovery HR: 67 bpm BP Resting BP Supine: 174/88 mmHg Max BP: 178/90 mmHg Recovery BP: 134/68 mmHg ECG Resting ECG: Sinus Bradycardia Ectopy: None Comment: Inverted T wave lead III Stress ECG: Sinus Rhythm ST Change: Nondiagnostic low heart rate Arrhythmia: None Recovery ECG: Sinus Rhythm Recovery ST Change: Nondiagnostic low heart rate Recovery Arrhythmia: None Clinical Stress Symptoms: 3/10 chest ache Angina Score: Non-Limiting Rate Pressure Product: 20186 Stress ECG Conclusion 1. Abnormal clinical response with 3/10 nonlimiting chest ache 2. No significant HR response 3. Normal BP response 4. Normal ECG response 5. Nuclear findings reported separately Stress Test Summary STAGE HR BP SpO2 Symptoms NOTES Supine 55 174/88 96 1 min post Lexiscan injection 53 178/90 96 3/10 chest tightness 3 min post Lexiscan injection 69 126/64 99 6 min post Lexiscan injection 67 134/68 95 All symptoms resolved MPI Conclusion Normal myocardial perfusion, no ischemia or infarct Normal LV systolic function, no wall motion abnormality,EF 76% Radiologist Interpretation Radiologist agrees with Pickling Machine Operator's Interpretation. Radiologist Interpretation by: Ld George MD Interpretation Date/Time: 03/25/2023 08:05:44
[2023-03-21] MEDS: Regadenoson 0.4 MG/5 ML SYR IVP (10:15)
== END ==
PROVIDERS: PCP Nurse Practitioner Family; Visit Provider Nurse Practitioner Family
DX: R07.9 Chest pain, unspecified (principal)
CPT/HCPCS: 78452; 93016; 93018; 93017; J2785

== ENCOUNTER → 2023-03-25 09:51 | Outpatient (BNVA) | payer MEDICARE, SELFPAY | PROVIDERS: PCP Nurse Practitioner Family; Referring Provider Nurse Practitioner Family; Visit Provider Internal Medicine Interventional Cardiology | DX: R07.9 Chest pain, unspecified (principal); R00.1 Bradycardia, unspecified; E78.5 Hyperlipidemia, unspecified | CPT/HCPCS: 99213 ==

== ENCOUNTER 2024-03-10 02:34 | Outpatient (CLI) | payer MEDICARE, SELFPAY ==
[2024-03-10 13:17] LABS: ALT 16 U/L (16-63); AST 13 U/L (15-37); Albumin 3.7 g/dL (3.4-5.0); Alkaline Phosphatase 73 U/L (46-116); Anion Gap 7.8 mmol/L (3-11); BUN 34 mg/dL (7-18); CO2 27.2 mmol/L (21.0-32.0); Calcium 9.4 mg/dL (8.5-10.1); Calculated LDL 112 mg/dL (<100); Chloride 104 mmol/L (98-107); Cholesterol 198 mg/dL (<200); Estimated GFR 16.64 (mL/min/1.73m2); Glucose 118 mg/dL (74-106); HDL Cholesterol 46 mg/dL (40-60); Potassium 4.6 mmol/L (3.5-5.1); Sodium 139 mmol/L (136-145); Total Protein 7.9 g/dL (6.4-8.2); Triglyceride 201 mg/dL (<150)
[2024-03-10 13:51] LABS: CREATININE 3.7 mg/dL (0.70-1.30)
== END 2024-03-10 02:35 | disposition home or self-care (01) ==
LOC: LOS 02:34
PROVIDERS: PCP Nurse Practitioner Family; Visit Provider Nurse Practitioner Family
DX: E11.3413 Type 2 diabetes mellitus with severe nonproliferative diabetic retinopathy with macular edema, bilateral (principal); E11.9 Type 2 diabetes mellitus without complications; Z12.11 Encounter for screening for malignant neoplasm of colon
CPT/HCPCS: 36415; 80053; 80061

== ENCOUNTER 2024-10-12 15:58 | Outpatient (REF) | payer MEDICARE, SELFPAY ==
[2024-10-12 21:12] LABS: HCT 36.1 % (40.0-50.0); HGB 12.3 g/dL (13.5-17.5); MCH 29.3 pg (27.0-33.0); MCHC 34.1 % (32.0-36.0); MCV 86 fL (80-95); MPV 10.3 fL (8.0-11.0); Platelet Count 216 10^3/uL (130-400); RBC 4.20 10^6/uL (4.36-5.78); RDW 13.2 % (11.8-14.1); RDW-SD 41.2 fL; WBC 8.13 10^3/uL (4.4-10.8)
[2024-10-12 21:34] LABS: Iron 60 ug/dL (65-175); Total Iron Binding Capacity 278 ug/dL (250-450)
[2024-10-12 21:56] LABS: Anion Gap 8.0 mmol/L (3-11); BUN 48 mg/dL (7-18); CO2 31.0 mmol/L (21.0-32.0); Chloride 100 mmol/L (98-107); Estimated GFR 11.80 (mL/min/1.73m2); Glucose 131 mg/dL (74-106); Potassium 3.7 mmol/L (3.5-5.1); Sodium 139 mmol/L (136-145); TSH (W/Ref FT4) 3.30 uIU/mL (0.36-3.74)
[2024-10-12 21:59] LABS: Vitamin B12 > 2000 pg/mL (193-986)
[2024-10-12 22:02] LABS: Calcium 13.2 mg/dL (8.5-10.1)
== END 2024-10-12 15:59 | disposition home or self-care (01) ==
LOC: LBN 15:58
PROVIDERS: PCP Nurse Practitioner Family; Visit Provider Nurse Practitioner Family
DX: N18.4 Chronic kidney disease, stage 4 (severe) (principal); E53.8 Deficiency of other specified B group vitamins; D64.9 Anemia, unspecified; R41.3 Other amnesia
CPT/HCPCS: 80048; 85027; 82607; 83540; 83550; 84443

== ENCOUNTER 2024-10-22 15:05 | Outpatient (CLI) | payer MEDICARE, SELFPAY ==
[2024-10-22 12:17] LABS: Anion Gap 3.8 mmol/L (3-11); BUN 36 mg/dL (7-18); CO2 31.2 mmol/L (21.0-32.0); Calcium 8.1 mg/dL (8.5-10.1); Chloride 104 mmol/L (98-107); Estimated GFR 14.20 (mL/min/1.73m2); Glucose 192 mg/dL (74-106); Potassium 3.8 mmol/L (3.5-5.1); Sodium 139 mmol/L (136-145)
== END 2024-10-22 15:06 | disposition home or self-care (01) ==
LOC: LOS 15:06
PROVIDERS: PCP Nurse Practitioner Family; Visit Provider Nurse Practitioner Family
DX: N18.4 Chronic kidney disease, stage 4 (severe) (principal)
CPT/HCPCS: 36415; 80048

== ENCOUNTER 2025-01-06 09:34 | Outpatient (CLI) | payer MEDICARE, SELFPAY ==
--- NOTE | 2025-01-06 09:30 | RT.EKG_ITS ---
APPROVED REPORT Exam: Resting ECG Reason for Exam: chest pain Patient Location: O HR:70 bpm ECG Measurements Heart Rate 70 AXIS [place] 177 P 42 QRSd 77 QRS -3 QT 397 T 23 QTc 429 Conclusion Sinus rhythm...normal P axis, V-rate 50- 99 Normal Electrocardiogram
== END 2025-01-06 09:35 | disposition home or self-care (01) ==
LOC: DI.CM 09:34
PROVIDERS: PCP Nurse Practitioner Family; Visit Provider Physician Assistant
DX: R07.9 Chest pain, unspecified (principal)
CPT/HCPCS: 93010

== ENCOUNTER 2025-01-14 08:54 | Emergency (ER) | payer MEDICARE, SELFPAY ==
[2025-01-14 08:56] VITALS: BP 112/70; PULSE 100; RESP 15; TEMP 36.8; O2SAT 94
[2025-01-14] MEDS: Acetaminophen 500 MG TAB 1000 MG PO (09:18)
[2025-01-14] MEDS: Ketorolac 15 MG/ML VIAL IM (09:19)
--- NOTE | 2025-01-14 09:40 | DI.RAD_ITS ---
Exam(s) XR KNEE LT 3V AP,LAT,ROBIN EXAM: XR KNEE LT 3V AP,LAT,ROBIN CLINICAL HISTORY: medial knee pain. TECHNIQUE: 2D digital imaging was performed of the left knee. Three images were obtained. AP, lateral and PA tunnel views were obtained. COMPARISON: CR XR knee LT 3V AP,lat,robin from 01/16/2018 FINDINGS: BONES: No acute fracture is present. There is a new lucency seen on the posterior aspect of the patella. There is a well corticated osseous density projected within the lateral compartment of the knee which may represent a loose body. JOINTS: The knee is normally aligned. There does appear to be a small joint effusion. SOFT TISSUE: Extensive atherosclerotic calcification is present. IMPRESSION: 1. There is no acute fracture or dislocation. 2. There is a new 6 mm lucency in the patella. A lytic lesion or erosion should be considered. Please correlate clinically. 3. The preliminary [facility] report was reviewed. DATA REPOSITORY: RADIATION DOSE DELIVERED:
--- NOTE | 2025-01-14 09:40 | DI.[facility]_ITS ---
PROCEDURE INFORMATION: Exam: XR Left Knee Exam date and time: 01/14/2025 9:31 AM Age: 74 years old Clinical indication: Other: Medial knee pain TECHNIQUE: Imaging protocol: Radiologic exam of the left knee. Views: 3 views. COMPARISON: CR XR knee LT 3V AP,lat,eugene 01/16/2018 7:35 PM FINDINGS: Bones/joints: There is no evidence of acute fracture.There is no evidence of malalignment or dislocation. Well corticated 6 mm ossific fragment projected over the lateral compartment may represent avulsion fracture of unknown age. Differential includes loose body. It was not seen in 2018 . 6 mm lucency in the posterior aspect of the patella that was not present in 2018 Soft tissues: Normal. IMPRESSION: 1. There is no evidence of acute fracture.There is no evidence of malalignment or dislocation. 2. Well corticated 6 mm ossific fragment projected over the lateral compartment may represent avulsion fracture of unknown age. Differential includes loose body. It was not seen in 2018. 3 6 mm lucency in the posterior aspect of the patella that was not present in 2018. This may represent a lytic lesion Dictated and Authenticated by: Mary Salamanca MD. Orderin [facility] Johnson MD
--- NOTE | 2025-01-14 09:49 | ED.GENADUL_ITS ---
Discharge Plan Disposition Patient Disposition: Home Condition: Stable Discharge Details Clinical Impression: Knee pain, left Primary Care Provider: Jaya Huynh ED Provider: Elizabeth Osborn Home Meds and New Rx's Prescriptions: No Action cyanocobalamin (vitamin B-12) 1,000 mcg capsule 1,000 mcg PO DAILY (DME) pen needle, diabetic 31 gauge x 3/16 needle See Rx Instructions .ROUTE .MEDSUPPLY Qty: 1200 Patient Comments: USE ONE PEN NEEDLE DAILY Rx Instructions: As directed allopurinol 300 mg tablet 150 mg PO DAILY Qty: 90 4RF calcium carbonate [Tums] 200 mg calcium (500 mg) tablet,chewable 200 mg PO BID PRN (DME) lancing device [Lancing System] Misc See Rx Instructions .ROUTE .MEDSUPPLY Qty: 1 Patient Comments: ONE TOUCH DELICA Rx Instructions: As directed aspirin 81 mg tablet,chewable 81 mg PO DAILY (DME) OneTouch Verio test strips Strip See Rx Instructions .ROUTE .MEDSUPPLY Qty: 200 4RF Rx Instructions: Check blood sugar twice a day insulin glargine [Lantus Solostar U-100 Insulin] 100 unit/mL (3 mL) insulin pen 22 unit subcut DAILY Qty: 30 4RF losartan 100 mg tablet See Rx Instructions .ROUTE .COMPLEX Qty: 90 4RF Dose Instruction: TAKE ONE TABLET BY MOUTH EVERY DAY Rx Instructions: TAKE ONE TABLET BY MOUTH EVERY DAY nitroglycerin 0.4 mg tablet, sublingual 0.4 mg sublingual Q5M PRN (Reason: chest pain) Qty: 14 0RF Rx Instructions: Take 1 tab at onset of symptoms, repeat every 5 minutes x 3 doses if chest pain persists (DME) pen needle, diabetic 31 gauge x 1/3 needle 1 ea Miscellaneous DAILY Qty: 100 5RF Patient Comments: BD MINI PEN NEEDLE Rx Instructions: One Daily E11.9 rosuvastatin 5 mg tablet 2.5 mg PO .COMPLEX Qty: 45 4RF Rx Instructions: 2.5 mg orally ; lansoprazole 30 mg capsule,delayed release(DR/EC) 30 mg PO DAILY PRN (DME) blood-glucose meter Misc See Rx Instructions .Route Qty: 1 0RF Rx Instructions: twice daily testing Discharge Instructions Instructions: Knee Pain ED Additional Instructions: You were seen in the emergency department today for evaluation of knee pain. In our department you had a full physical examination performed, and had an x-ray. There was no sign of infection or gout on your exam today, but your x-ray does show that you have a significant amount of wear and tear in your knee which could be contributing to your pain. You have also sustained some injuries in between your last x-ray (which was in 2018) and now, though they look like they are healing. There was an injury to the ligament and bone on the side of your left knee which is well-healed, and I do note an area of bone loss in your patella. Both of these findings should be followed up on by your primary care provider as needed. You have a visit with her tomorrow and should keep that appointment to discuss this visit and any symptoms that change, worsen, or persist. I have provided you with a hinged knee brace which you can wear as needed for support when up and about. You do not need to wear it when you are sleeping, bathing, or resting with your leg elevated. Please continue to use Tylenol for pain, you can take 650 to 1000 mg every 6 hours as needed for pain. I have provided you with a short course of oral morphine which you can use for breakthrough pain, especially that pain that keeps you from sleeping at night. Thank you for allowing us to be part of your care. Stand Alone Forms: Portal Information HPI General Mode of arrival: ambulatory . Date/Time Provider Initiated Documentation: 01/14/25 09:00 . Limitations to Documentation: no limitations . Information obtained by: patient, family and old records reviewed . HPI Narrative: This is a 74-year-old male patient with a past medical history significant for hypertension, hyperlipidemia, GERD, diabetes, CKD, and a history of right knee problems/pain, presenting for evaluation of 1 week of worsening right knee pain. The patient reports that his symptoms started suddenly in the absence of trauma or injury. He has had episodes of gout in the past, and this feels somewhat similar. His pain is located in the medial aspect of his knee, is making it difficult to find a comfortable position. He reports that he has not noted any skin changes or swelling, no numbness, tingling, or weakness distal to this injury. He has been taking Tylenol and Aleve for management of his pain. Denies fevers or chills. Related Data Home Medications ?Medication ?Instructions ?Recorded ?Confirmed calcium carbonate (Tums) 200 mg PO BID PRN 06/16/19 1 03/16/24 lancing device (Lancing System) #1 ea 10/11/20 5 aspirin 81 mg chewable tablet 81 mg PO DAILY 12/13/20 01/14/25 cyanocobalamin (vitamin B-12) 1,000 mcg PO DAILY 11/0701/14/25 1,000 mcg capsule blood-glucose meter #1 ea 03/20/23 01/14/25 blood sugar diagnostic (OneTouch #200 ea 03/10/2412/20 Verio test strips) insulin glargine 100 unit/mL (3 22 unit (0.22 mL) subc ut DAILY #30 03/10/24 01/14/25 mL) subcutaneous pen (Lantus mL Solostar U-100 Insulin) losartan 100 mg tablet See Rx Instructions .Route 0 03/10/24 01/14/25 .COMPLEX #90 tabs nitroglycerin 0.4 mg sublingual 0.4 mg sublingual Q5M PRN chest 03/10/24 01/14/25 tablet pain #14 tabs pen needle, diabetic 31 gauge x #100 ea 03/10/2401/14 1/ pen needle, diabetic 31 gauge x #1,200 ea 06/15/24/16 allopurinol 300 mg tablet 150 mg (1/2 x 300 mg) PO MELLY LY #90 08/19/24 01/14/25 tabs rosuvastatin 5 mg tablet 2.5 mg (1/2 x 5 mg) PO .COMP LIDA 10/12/24 01/14/25 #45 tabs lansoprazole 30 mg capsule,delayed 30 mg PO DAILY PRN 11/04/24 01/14/25 release Previous Rx's ?Medication ?Instructions ?Recorded blood-glucose meter #1 ea 03/20/23 blood sugar diagnostic (OneTouch #200 ea 03/10/24 Verio test strips) insulin glargine 100 unit/mL (3 22 unit (0.22 mL) subc ut DAILY #30 03/10/24 mL) subcutaneous pen (Lantus mL Solostar U-100 Insulin) losartan 100 mg tablet See Rx Instructions .Route 0 03/10/24 .COMPLEX #90 tabs nitroglycerin 0.4 mg sublingual 0.4 mg sublingual Q5M PRN chest 03/10/24 tablet pain #14 tabs pen needle, diabetic 31 gauge x #100 ea 03/10/24 1/3 allopurinol 300 mg tablet 150 mg (1/2 x 300 mg) PO MELLY LY #90 08/19/24 tabs rosuvastatin 5 mg tablet 2.5 mg (1/2 x 5 mg) PO .COMP LIDA 10/12/24 #45 tabs Allergies Allergy/AdvReac Type Severity Reaction Status Date / Time metformin AdvReac Severe diarrhea Verified 01/14/25 09:02 atorvastatin AdvReac Intermediate leg aches Verified 01/14/25 09:02 pantoprazole AdvReac Intermediate nausea and Verified 01/14/25 09:02 vomiting General Stated Complaint: Orthopedic APRIL: 4 Exam Narrative Exam Narrative: Gen: Awake and alert, in no apparent distress HEENT: Non-icteric sclera Neck: Supple Lungs: No apparent respiratory distress, normal respiratory effort. CV: Appears well perfused, strong distal pulses, heart regular rate and rhythm Abdomen: Non-distended MSK: Moves 4 extremities without apparent limitation in ROM, including the affected left lower extremity. He has full passive and active range of motion of the left knee, without reproduction of pain with flexion or extension. No palpable knee effusion, no overlying skin changes or redness. No tenderness to palpation of the quadriceps or patellar tendons, nor the patella itself. The patient's primary point of tenderness is over the medial joint line, no lateral or posterior joint tenderness. Distal to this injury, the calf is nontender, with no swelling or peripheral edema. Strong DP pulses, no sensory changes or weakness distal to this injury. Skin: Visualized skin without rashes, cyanosis. Neuro: Normal Gait, no obvious focal deficits or facial asymmetry. Speaks in full, clear sentences. Psych: Appropriate for situation. Course Vital Signs Vital signs: Vital Signs Temperature 36.8 C 01/14/25 08:56 Pulse 100 H 01/14/25 08:56 Respiratory Rate 15 01/14/25 08:56 Blood Pressure 112/70 01/14/25 08:56 Pulse Oximetry 94 01/14/25 08:56 Temperature 36.8 C 01/14/25 08:56 Temperature Source Temporal Artery Scan 01/14/25 08:56 Pulse 100 H 01/14/25 08:56 Respiratory Rate 15 01/14/25 08:56 Blood Pressure 112/70 01/14/25 08:56 Blood Pressure Position Sitting 01/14/25 08:56 Pulse Oximetry 94 01/14/25 08:56 Oxygen Delivery Method Room Air 01/14/25 08:56 Oxygen Flow Rate 0 01/14/25 08:56 Medical Decision Making This is a 74-year-old male patient presenting for evaluation of left knee pain. My differential includes but is not limited to degenerative changes, osteoarthritis, consider fracture, dislocation, sprain/strain, though the patient had no traumatic reports to strongly suggest these etiologies. The patient has no redness, swelling, warmth, or pain with passive range of motion to increase my concern for gout, pseudogout, or infected joint. No evidence for neurovascular derangement, no swelling to suggest DVT. We will provide the patient with a dose of Tylenol and a dose of Toradol intramuscularly, the patient does occasionally take NSAIDs, and despite his CKD I feel like a one-time dose of anti-inflammatory medication is reasonable given his discomfort. We obtained an x-ray of the affected left knee which shows extensive degenerative changes, as well as some new changes from his most recent x-ray in 2018. He has a well-corticated possible avulsion fracture in the lateral compartment of the knee which is likely unrelated to today's incident given that his pain is on the medial aspect. He also has a lucency in the patella which may represent a lytic lesion. On reassessment the patient reports that his pain is improving, given the desire to avoid long-term NSAIDs I did provide him with a short course of take-home oral morphine for severe breakthrough pain management and counseled him on standing Tylenol. He was provided with a hinged knee brace for support and comfort, as I am most concerned for osteoarthritis plus or minus a knee sprain. He has an appointment with his primary care doctor tomorrow and will discuss this visit as well as any symptoms that change, worsen, or persist. At this time, the patient has had a full medical evaluation and is safe for discharge to home. They are hemodynamically stable, ambulatory, and tolerating PO. They are understanding of the follow-up plan and return precautions. They left our facility without incident. Elizabeth Osborn MD Quality:SDOH Health Related Social Needs: Health related social needs education PFSH All Active Problems (Updated 01/14/25 @ 10:11 by Elizabeth Osborn MD) Knee pain, left (Acute) Constipation by delayed colonic transit (Acute) Exertional chest pain (Acute) Dizziness (Acute) Chronic pain syndrome (Chronic) Diabetic macular edema (Chronic 01/05/12) Dyspepsia (Chronic 10/11/17) Essential hypertension (Chronic 02/05/13) Family history of malignant neoplasm of prostate (Chronic) brother Hyperlipidemia (Chronic) Phimosis (Chronic 11/27/16) Presbyesophagus (Chronic 04/11/17) Tinnitus (Chronic) Gastroparesis diabeticorum (Chronic) GERD (gastroesophageal reflux disease) (Chronic) Gout of left knee (Chronic) Insomnia (Chronic) Seasonal allergic rhinitis (Chronic) Nephritis (Chronic) Esotropia (Chronic) 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 2 diabetes mellitus (Acute ~08/06/18) [place] [place] (Chronic) Imbalance (Acute) Right lumbar radiculopathy (Acute) BPH (benign prostatic hyperplasia) (Chronic) Dysphagia (Acute) Schatzki's ring (Acute) Erectile dysfunction (Acute) Acute CVA (cerebrovascular accident) (Acute) Normocytic anemia (Chronic) Vertigo (Chronic) IDDM (insulin dependent diabetes mellitus) (Chronic) Right hemiparesis (Acute) Right leg weakness (Acute) Memory loss (Acute) Vitamin B12 deficiency (Acute) CKD (chronic kidney disease) stage 4, GFR 15-29 ml/min (Acute) Medical History Bradycardia Anemia Anemia Weakness Right foot pain Hypercalcemia pth pending Hypomagnesemia Serum calcium elevated Fatigue Stricture and stenosis of esophagus Closed fracture of clavicle Moderate nonproliferative diabetic retinopathy (01/04/11) Optical expressions; severe NPDR; OU w/DME OD 2013 [place] [facility] [place] [facility] [facility] [place] Type II DM with diabetic retinopathy and macular edema with moderatate nonproliferative retinopathy. Fatigue Surgical History PROCEDURES Strabismus surgery as child Extraction of cataract [facility] [place] History Mother , 70s RA (rheumatoid arthritis) CHF (congestive heart failure) Depression Heart disease Father , 70s Alcohol abuse Psoriasis Brother , 70s Diabetes Alcohol abuse Hyperlipidemia Myocardial infarction Neoplasm PROSTATE Sister , 70s No problems noted. Social History Smoking/Tobacco Use Status: Never Second Hand Exposure: Yes (When young) Smoking risk assessment performed?: Yes Alcohol Intake: current Alcohol Intake frequency: a few times a week Alcohol type: beer and wine Drug use: Never Substance use type: does not use Counseling given: No Caregiver/Support person: No Household members: spouse Housing: house Communication Needs: None current occupation: [employer] Pets and animals: No Sexually active: No Do you think of yourself as: straight/heterosexual Current gender identity: male What is your relationship status?: How often do you talk on the phone with friends or family?: once per week How often do you get together with friends or relatives?: twice per week How often do you attend orthodoxy or druze services?: decline to answer Do you belong to any clubs or organized social groups?: yes Panel score (0-1 are the most socially isolated patients): 3 What type of physical activity do you participate in: walking Duration: 15-30 minutes/day Frequency: daily Shara/Christianity: Alevism Special shara needs: No Seatbelt use: always Helmet use: No Drive intox or ride w/intox driver merchandiser: No Do you feel safe in your relationship?: Yes
[2025-01-14] MEDS: MORPHine IR 15 MG TAB, 4 TABS/BTL PO (10:13)
== END 2025-01-14 10:24 | disposition home or self-care (01) ==
PROVIDERS: Emergency Provider Emergency Medicine; PCP Nurse Practitioner Family
DX: M25.562 Pain in left knee (principal)
CPT/HCPCS: 73562; 96374; 99284; 99283; J1885

== ENCOUNTER 2025-01-15 10:56 | Outpatient (REF) | payer MEDICARE, SELFPAY ==
[2025-01-15 14:58] LABS: Uric Acid 7.2 mg/dL (3.7-9.2)
[2025-01-15 14:59] LABS: Magnesium 1.7 mg/dL (1.6-2.6)
[2025-01-15 15:22] LABS: Anion Gap 9.4 mmol/L (3-11); BUN 38 mg/dL (9-23); CO2 25.6 mmol/L (20.0-31.0); Calcium 10.0 mg/dL (8.3-10.6); Chloride 102 mmol/L (98-107); Glucose 91 mg/dL (74-106); Potassium 4.5 mmol/L (3.5-5.1); Sodium 137 mmol/L (136-145)
[2025-01-16 14:06] LABS: C-Reactive Protein 4.95 mg/dL (<=0.50)
[2025-01-16 15:22] LABS: Lab Add On Test DONE
== END 2025-01-15 10:57 | disposition home or self-care (01) ==
LOC: LBN 10:56
PROVIDERS: PCP Nurse Practitioner Family; Visit Provider Nurse Practitioner Family
DX: R07.9 Chest pain, unspecified (principal); M25.562 Pain in left knee; M10.9 Gout, unspecified
CPT/HCPCS: 80048; 83735; 84550; 86140